=== PATIENT | male | born 1975 | race Two or more races ===

== ENCOUNTER 2024-09-09 05:55 | Emergency (ER) | payer MEDICAID, SELFPAY ==
[2024-09-09] VITALS (8 sets, daily range): BP systolic 123–149; BP diastolic 70–94; PULSE 69–82; RESP 12–20; TEMP 36.3–36.8; O2SAT 93–98
--- NOTE | 2024-09-09 06:15 | XR_ITS ---
Examination: CTA chest with intravenous contrast 2-D reconstructions 3-D reconstructions, vascular Date and time of exam: September 09, 2024 0754 hours INDICATIONS: Onset chest pain shortness of breath today with elevated d-dimer on laboratory examination today CTDI: vol (mGy) 51.4 DLP: (mGycm) 589 Technique: Multiple axial sections of the thorax have been obtained. 3 mm slice thickness, from below the hemidiaphragms to above the apices of the lungs. Mediastinal and lung density settings have been obtained. 2-D sagittal and coronal reconstructions. 3-D angiographic renderings, 3-D volume renderings, 3D post processing, vascular maximum intensity projections obtained. Contrast administered is 100 cc Isovue-370 intravenous. Low dose protocols were performed. One or more of the following dose reduction techniques were used; automated exposure control, adjustment of the mA and/or KV according to patient size, use of iterative reconstruction technique. Findings: No thoracic aortic aneurysm dilatation or dissection Pulmonary artery segments are not enlarged No pulmonary artery emboli Extensive bilateral parenchymal disease including nodular densities in both lungs, without significant change compared with January 08, 2024 Moderate coronary artery calcification Liver is irregular in contour, cirrhosis pattern Cholelithiasis, no gallbladder wall thickening Spleen is not enlarged No pancreatic or adrenal mass No hydronephrosis Prominent osteopenia IMPRESSION: Negative for pulmonary artery emboli Again noted nodular extensive parenchymal disease throughout both lungs, no significant change compared with January 08, 2024 Differential would include chronic parenchymal infiltrates, with intravenous granulomatosis, active pneumonia not excluded Cirrhosis Cholelithiasis, negative for cholecystitis
--- NOTE | 2024-09-09 06:15 | XR_ITS ---
Examination: AP chest single view Technique one AP portable semiupright chest single view Exam date and time: September 09, 2024 0626 hrs. Comparison January 16, 2024 Indications: SOB today Findings: Again noted extensive bilateral parenchymal disease with prominent hilar regions Normal heart size Soft nodular densities are present in both lungs Mild osteopenia Reduced inspiratory effort Impression: Extensive nodular parenchymal disease throughout both lungs, please see the CT chest report January 08, 2024 Differential would include active infectious processes including tuberculosis, pulmonary nodular metastatic disease not excluded Consider repeat CT chest without contrast to compare with the January 08, 2024 exam
--- NOTE | 2024-09-09 06:15 | XR_ITS ---
Examination: Venous duplex lower extremity sonogram, bilateral. Date and time of exam: September 09, 2024 0803 hours INDICATIONS: History CVA, left leg swelling and pain post 2020 CVA, elevated d-dimer today on laboratory examination Technique: Multiple sonographic images of the deep venous system have been obtained. B-mode/2-D grayscale imaging of vascular structures and Doppler spectral analysis (waveforms) and color performed Both legs are examined. Findings: Deep venous systems do not demonstrate abnormal echogenicity. All visualized deep veins exhibit compressibility. All visualized deep veins exhibit augmentation. Impression: Negative for deep vein thrombosis
--- NOTE | 2024-09-09 06:27 | PD.EDEXREM ---
ED Extremity Problem RME/HPI General Chief complaint: Extremity Problem,Nontraumatic Stated complaint: LEDT LEG SWELLING FEVER Time Seen by Provider: 09/09/24 06:12 Arrival date/time: 09/09/24 05:55 RME / HPI RME / HPI Narrative: This section includes all my notes and documentations, including HPI, PE, and ED course.? Juan Miguel Llanos MD HPI: 48-year-old male here with several days of worsening left leg pain and swelling. Concerned due to DVT several months ago. Currently taking Xarelto. No cough or congestion. No chest pain or shortness of breath. No other complaints. ROS: All negative except as documented in HPI. Physical Exam: General:? Alert and oriented.? No acute distress when remaining still.?? Eyes:? Conjunctivae and lids clear.? ENT:? No nasal congestion.? Neck:? Supple.? Heart:? RRR.? Lungs:? No respiratory distress.? Good air movement.? No rhonchi, wheezing, rales.?? Abdomen:? Soft and nontender.?? Legs: Left leg remarkable for severe edema and tenderness. No erythema or calor. Skin:? Warm and dry.?? Neuro:? Alert and oriented X 3.?? I reviewed all diagnostic test results. My interpretation of the EKG is?NSR (66 bpm) with no ST-T changes. My interpretation of the chest x-ray is no acute findings. My review of the CTA chest report is?negative for pulmonary artery emboli. My review of the US venous doppler is negative for deep vein thrombosis. Blood tests and urine tests?remarkable for UTI. At this point, diagnoses include?UTI and leg edema. Treatment here included?IV fluid and Rocephin and fluconazole and morphine. Significant improvement noted. Based on my best medical judgment, made decision no further evaluation or treatment indicated at this time.? Patient understands and agrees to the discharge instructions customized and printed, see below. Discharge Instructions from Dr. Llanos printed for you: 1. After extensive evaluation, there are no blood clots in your legs or in your lungs. 2. Your leg swelling is from cirrhosis, liver damage probably from alcohol history. Liver makes proteins you need to keep blood/fluid in the blood vessels. Since your liver is damaged, the fluid leaks out of the blood vessels go into your legs from the gravity. 3. When resting or sleeping, elevate head of bed and elevate your feet/ankles above your waist level. This will help get the extra fluid back into your blood vessels so you can urinate out the extra fluid. 4. Take Lasix 20 mg daily to help you urinate out the extra fluid. 5. For the UTI by bacteria and yeast, take cefdinir and Diflucan as prescribed. 6. See a private doctor on 09/12/2024 for recheck and further care. Ask to review all test results and official radiology reports, to make sure you receive all necessary follow-ups and monitoring, including your final urine culture results. Ask for a referral to see liver specialist for your cirrhosis. 7. Seek immediate medical care with worsening or with any concerns. Related Data Home Medications ?Medication ?Instructions ?Recorded ?Confirmed atorvastatin 40 mg tablet 40 mg PO HS 01/23/20 02/22/24 gabapentin 300 mg capsule 300 mg PO TID 01/23/20 02/22/24 hydralazine 25 mg tablet 25 mg PO HS 01/23/20 02/22/24 insulin glargine 100 unit/mL (3 9 unit subcut HS 06/07/20 02/22/24 mL) subcutaneous pen (Basaglar KwikPen U-100 Insulin) amlodipine 10 mg tablet 10 mg PO QDAY 04/30/21 02/22/24 carvedilol 12.5 mg tablet 12.5 mg PO BID 04/30/21 02/22/24 acetaminophen 325 mg tablet 650 mg PO Q6HR PRN pain 01/09/24 02/22/24 (Tylenol) bisacodyl 10 mg rectal suppository 10 mg TN PRN PRN Constipation 01/09/24 02/22/24 (Dulcolax (bisacodyl)) docusate sodium 250 mg capsule 250 mg PO BID 01/09/24 02/22/24 ferrous sulfate 325 mg (65 mg 325 mg PO QDAY 01/09/24 02/22/24 iron) tablet fluticasone propionate 50 1 spray intranasal Q24H PRN 01/09/24 02/22/24 mcg/actuation nasal Allergic Symptoms spray,suspension glucagon 1 mg injection kit 1 mg Q15MIN PRN Hypoglycemia 01/09/24 02/22/24 insulin lispro 100 unit/mL 16 unit subcut QPM 01/09/24 02/22/24 subcutaneous solution lactulose 10 gram/15 mL oral 30 ml PO Q8HR PRN Constipation 01/09/24 02/22/24 solution magnesium hydroxide 400 mg/5 mL 30 ml PO Q72H PRN constipation 01/09/24 02/22/24 oral suspension (Milk of Magnesia) sodium phosphates 19 gram-7 118 ml TN Q72H PRN Constipation 01/09/24 02/22/24 gram/118 mL enema (Fleet Enema) triamcinolone acetonide 0.1 % 1 applic topical Q12HR PRN Eczema 01/09/24 02/22/24 topical cream guaifenesin 100 mg/5 mL oral liquid 200 mg PO Q6HR PRN Cough 02/22/24 ipratropium bromide 0.02 % 2.5 ml inhalation Q4HR PRN 02/22/24 02/22/24 solution for inhalation Shortness Of Breath ondansetron HCl 4 mg tablet 4 mg PO [id number] PRN Nausea And 02/22/24 02/22/24 Vomiting rivaroxaban 15 mg tablet (Xarelto) 15 mg PO BID 02/22/24 02/22/24 rivaroxaban 20 mg tablet (Xarelto) 20 mg PO QDAY 02/22/24 02/22/24 sennosides 8.6 mg tablet (senna) 8.6 mg PO QDAY 02/22/24 02/22/24 tramadol 100 mg tablet 100 mg PO Q8HR PRN Pain 02/22/24 02/22/24 Previous Rx's ?Medication ?Instructions ?Recorded albuterol sulfate 90 mcg/actuation 1 puff inhalation Q4HR PRN 11/05/20 aerosol inhaler Shortness Of Breath Or Wheezing #0 grams tamsulosin 0.4 mg capsule 0.4 mg PO QDAY #30 caps 11/30/20 calcium acetate(phosphat bind) 667 667 mg PO TIDWM #0 caps 05/10/21 mg capsule cefdinir 300 mg capsule 300 mg PO BID #14 caps 09/09/24 fluconazole 200 mg tablet 200 mg PO QDAY 7 days #7 tabs 09/09/24 (Diflucan) furosemide 20 mg tablet (Lasix) 20 mg PO QDAY #30 tabs 09/09/24 Allergies Allergy/AdvReac Type Severity Reaction Status Date / Time No Known Allergies Allergy Verified 02/22/24 05:30 Review of Systems Review of Systems Systems Reviewed: All systems reviewed, normal except as documented Past Medical History Past Medical History NEUROLOGIC: Positive Neurological Disorders, Cerebrovascular Accident, Paralysis (left side) and Head Trauma; Negative Seizures CARDIAC: Positive Deep Vein Thrombosis (left leg) and Hypertension; Negative Cardiac Disorders, Congestive Heart Failure, Congenital Heart Disease or Hypotension RESPIRATORY: Positive Chronic Obstructive Pulmonary Disease (COPD) and Asthma; Negative Cystic Fibrosis GASTROINTESTINAL: Positive Hepatitis (C), Hemorrhoids and Obesity; Negative Gastrointestinal Disorders, Cirrhosis or Pancreatic Cancer GENITOURINARY: Positive Benign Prostatic Hyperplasia; Negative Genitourinary Disorders, Renal Disease or Prostate Cancer REPRODUCTIVE: Negative Testicular Cancer MUSCULOSKELETAL: Positive Musculoskeletal Disorders; Negative Myasthenia Gravis or Bone Cancer ENT: Positive Head Trauma ENDOCRINE: Positive Diabetes Mellitus Type 2; Negative Diabetes Mellitus Type 1 or Syndrome of Inappropriate Antidiuretic Hormone (SIADH) HEMATOLOGIC: Negative Blood Disorders or Sickle Cell Disease PSYCHO/SOCIAL: Positive Anxiety; Negative Psychiatric Problems OTHER HISTORY: Positive Hospitalization and Blood Transfusions; Negative Autoimmune Disease, Down Syndrome, Blood Transfusion Reaction, Anesthesia Reactions, Organ Transplant, Chemotherapy, Radiation Therapy, Hyperbaric Therapy, MRSA, VRSA, Vancomycin-Resistant Enterococci, Human Immunodeficiency Virus (HIV), Chicken Pox, Measles, Mumps, Pertussis, Clostridium Difficile, Cancer, Prostate Cancer or Testicular Cancer Family History FAMILY HISTORY: Positive Family Cardiac Disorders; Negative Family Neurologic Problems, Family Cancer, Family Surgery or Family Anesthesia Reaction Surgical History SURGICAL: Positive Neurologic Surgery; Negative Cardiac Surgery, Endocrine Surgery, Thyroidectomy, Ear Surgery, Abdominal Surgery, Nephrectomy, Joint Replacement, Vasectomy or Organ Transplant Social History SMOKING STATUS: Never smoker SECOND HAND EXPOSURE: No SUBSTANCE USE: does not use ED Exam Narrative Physical exam: As noted in HPI Course Quality Measures none Orders Category Date Time Status Bedside COVID-19 Antigen Test NOW Care 09/09/24 06:14 Active Bedside Influenza A&B Antigen Test NOW Care 09/09/24 06:[address] Screening NOW Care 09/09/24 06:15 Active EKG (ED ONLY) *Do not use* NOW Care 09/09/24 06:15 Completed Saline [Insert IV] NOW Care 09/09/24 06:14 Active Straight [In and Out Catheter] X1 Care 09/09/24 06:[address] angio chest Stat Exams 09/09/24 06:15 Completed EKG (ED Only) Stat Exams 09/09/24 06:15 Ordered US venous doppler LE BI Stat Exams 09/09/24 06:15 Completed XR chest 1V portable Stat Exams 09/09/24 06:15 Completed BNP [B-Type Natriuretic Peptide] Stat Lab 09/09/24 06:25 Completed CBC Stat Lab 09/09/24 06:25 Completed CMP [Comprehensive Metabolic Panel] Stat Lab 09/09/24 06:25 Completed D-Dimer Stat Lab 09/09/24 06:25 Completed Magnesium Stat Lab 09/09/24 06:25 Completed TSH [Thyroid Stimulating Hormone] Stat Lab 09/09/24 06:25 Completed Troponin I Stat Lab 09/09/24 06:25 Completed UA, C/S IF [Urinalysis, C/S if Indicated] Stat Lab 09/09/24 13:45 Completed Urine Culture Stat Lab 09/09/24 13:45 Received Fluconazole [Diflucan] Med 09/09/24 14:15 Discontinued 200 mg PO X1 ONE HYDROmorphone INJ [Dilaudid Inj] Med 09/09/24 06:14 Discontinued 1 mg IVP X1 ONE Sodium Chloride 0.9% 1000 ml [Ns] 1,000 ml Med 09/09/24 07:40 Discontinued IV 999 mls/hr cefTRIAXone [Rocephin] 1,000 mg Med 09/09/24 14:15 Discontinued Sodium Chloride 0.9% (P) [Ns 0.9% (P)] 50 ml IV X1 Vital Signs Vital signs: Vital Signs Temperature 98.3 F 09/09/24 06:03 Pulse Rate 70 09/09/24 06:03 Respiratory Rate 18 09/09/24 06:03 Blood Pressure 140/70 H 09/09/24 06:03 Pulse Oximetry (%) 95 09/09/24 06:03 Oxygen Delivery Method Room Air 09/09/24 06:03 Pulse ox is 95% on room air which is adequate. Extremity Problem Patient data External records reviewed:: [facility] [place] previous records, EMS form and [facility] records Clinical information provided by:: patient, EMS and spouse Social determinants that could affect healthcare access:: housing ([facility] resident ) Patient has the following chronic illnesses:: CVA with left-sided weakness, CKD, diabetes, hypertension How is presenting disease/condition affected by chronic disease/condition?: exacerbated by Evaluation data The following diagnostics were reviewed and interpreted by me:: lab results, radiology exam(s) and EKG tracing(s) (My interpretation of the EKG: NSR (66 bpm) with no ST-T changes. Juan Miguel Llanos MD) Lab and/or radiology exams considered but not ordered:: None Interpretation Summary: UTI and dependent leg edema Medications / Prescriptions Medications or Prescriptions considered but not ordered:: None Medication administrations:: Medication Administration History Discontinued Medications Fluconazole (Fluconazole 100 Mg Tablet) 200 mg PO X1 ONE Stop: 09/09/24 14:16 Last Admin: 09/09/24 16:46 Dose: 200 mg Documented By: AMANDO Comments: DELIVERED BY PHARMACY AT THIS TIME. Hydromorphone HCl (Hydromorphone Inj 2 Mg/Ml Vial) 1 mg IVP X1 ONE Stop: 09/09/24 06:15 Last Admin: 09/09/24 06:41 Dose: 1 mg Documented By: ISMAEL Sodium Chloride (Ns) 1,000 mls @ 999 mls/hr IV .Q1H1M ONE Stop: 09/09/24 08:40 Last Infusion: 09/09/24 13:08 Dose: Infused Documented By: Admin: 09/09/24 09:23 Dose: 999 mls/hr Documented By: MARYLIN Ceftriaxone Sodium 1,000 mg/ (Sodium Chloride) 50 mls @ 100 mls/hr IV X1 ONE Stop: 09/09/24 14:44 Last Infusion: 09/09/24 16:47 Dose: Infused Documented By: Admin: 09/09/24 16:02 Dose: 100 mls/hr Documented By: MARYLIN Patient given Flucanazole, dilaudid, IV fluids, ceftriaxone Consultations Consultation(s) initiated? (list below): No Diagnosis Extremity Problem Differential Diagnosis: cellulitis, superficial thrombophlebitis, deep venous thrombosis of upper extremity, lower extremity edema and deep vein thrombosis of lower extremity Most likely diagnosis given after review of the tests above:: UTI Leg edema Admission Indicated Admission indicated?: not indicated Explain why admission is indicated or not indicated:: Does not meet admission criteria Admission Request Was there a request for admission?: No Disposition Plan Disposition Plan: Discharge Discharge Attestation Discharge Attestation: The patient and all family members were given an opportunity to ask questions and understood the discharge instructions. Discharge instructions specifically effects, indications for sooner follow up or return to the emergency department, and the expected course of current diagnosis. Patient condition: Stable Discharge Plan Plan Patient Disposition: Xfer Skilled Nsg Fac (SNF) Prescriptions/Referrals Prescriptions/Med Rec: New fluconazole [Diflucan] 200 mg tablet 200 mg PO QDAY 7 Days Qty: 7 0RF cefdinir 300 mg capsule 300 mg PO BID Qty: 14 0RF furosemide [Lasix] 20 mg tablet 20 mg PO QDAY Qty: 30 0RF No Action insulin glargine [Basaglar KwikPen U-100 Insulin] 100 unit/mL (3 mL) insulin pen 9 unit SUBCUT HS carvedilol 12.5 mg tablet 12.5 mg PO BID Rx Instructions: hold of SBP < 110 or pulse < 60 amlodipine 10 mg Tablet 10 mg PO QDAY Rx Instructions: hold if SBP < 110 or pulse < 60 calcium acetate(phosphat bind) 667 mg capsule 667 mg PO TIDWM Qty: 0 0RF Rx Instructions: 1 capsule by mouth with meals for CKD stage 3 atorvastatin 40 mg Tablet 40 mg PO HS hydralazine 25 mg Tablet 25 mg PO HS Rx Instructions: for HTN Hold if SBP <110 or Pulse <60 gabapentin 300 mg Capsule 300 mg PO TID Rx Instructions: 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 albuterol sulfate 90 mcg/actuation HFA aerosol inhaler 1 puff INHALATION Q4HR PRN (Reason: Shortness Of Breath Or Wheezing) Qty: 0 0RF tamsulosin 0.4 mg Capsule 0.4 mg PO QDAY Qty: 30 0RF Rx Instructions: for bladder spasms ferrous sulfate 325 mg (65 mg iron) Tablet 325 mg PO QDAY Rx Instructions: for supplement acetaminophen [Tylenol] 325 mg Tablet 650 mg PO Q6HR PRN (Reason: pain) Rx Instructions: PRN pain (1-10) triamcinolone acetonide 0.1 % Cream 1 applic TOPICAL Q12HR PRN (Reason: Eczema) Rx Instructions: Apply to Head-top of topically magnesium hydroxide [Milk of Magnesia] 400 mg/5 mL Suspension 30 ml PO Q72H PRN (Reason: constipation) Rx Instructions: No bm for 3 days bisacodyl [Dulcolax (bisacodyl)] 10 mg Suppository 10 mg TN PRN PRN (Reason: Constipation) Rx Instructions: To be administered the following shift if mom is ineffective. insulin lispro 100 unit/mL Solution 16 unit subcut QPM Rx Instructions: AC Dinner docusate sodium 250 mg Capsule 250 mg PO BID lactulose 10 gram/15 mL Solution 30 ml PO Q8HR PRN (Reason: Constipation) fluticasone propionate 50 mcg/actuation Amelia,Suspension 1 spray INTRANASAL Q24H PRN (Reason: Allergic Symptoms) Rx Instructions: administer in both nostril Fleet Enema 19-7 gram/118 mL Enema 118 ml TN Q72H PRN (Reason: Constipation) Rx Instructions: To be administered the following shift if Dulcolax suppository is ineffective, notify md if no result glucagon 1 mg Kit 1 mg Q15MIN PRN (Reason: Hypoglycemia) Rx Instructions: Intramuscularly for Blood ugar <60 ipratropium bromide 0.02 % Solution 2.5 ml INHALATION Q4HR PRN (Reason: Shortness Of Breath) tramadol 100 mg Tablet 100 mg PO Q8HR PRN (Reason: Pain) Rx Instructions: PRN pain moderate(4-6); pain severe (6-9) Xarelto 15 mg tablet 15 mg PO BID Rx Instructions: for DVT for 21 days. Start date:02/14/24, End date 03/06/24. Xarelto 20 mg Tablet 20 mg PO QDAY Rx Instructions: for DVT for 70 days. Start date 03/07/24, End date 05/16/24. ondansetron HCl 4 mg tablet 4 mg PO [id number] PRN (Reason: Nausea And Vomiting) sennosides [senna] 8.6 mg Tablet 8.6 mg PO QDAY Rx Instructions: Senna-Tabs 1 tablet for constipation guaifenesin 100 mg/5 mL Liquid 200 mg PO Q6HR PRN (Reason: Cough) Rx Instructions: 10ml Referrals: Aliyah Cortez MD [Primary Care Provider] - In 1 week Problem List Clinical Impression: UTI (urinary tract infection), Leg edema Patient/Caregiver Discharge Instructions Education Materials: ED Lymphedema, ED Bladder Infection, Male (Adult) Additional Instructions: Discharge Instructions from Dr. Llanos printed for you: 1. After extensive evaluation, there are no blood clots in your legs or in your lungs. 2. Your leg swelling is from cirrhosis, liver damage probably from alcohol history. Liver makes proteins you need to keep blood/fluid in the blood vessels. Since your liver is damaged, the fluid leaks out of the blood vessels go into your legs from the gravity. 3. When resting or sleeping, elevate head of bed and elevate your feet/ankles above your waist level. This will help get the extra fluid back into your blood vessels so you can urinate out the extra fluid. 4. Take Lasix 20 mg daily to help you urinate out the extra fluid. 5. For the UTI by bacteria and yeast, take cefdinir and Diflucan as prescribed. 6. See a private doctor on 09/12/2024 for recheck and further care. Ask to review all test results and official radiology reports, to make sure you receive all necessary follow-ups and monitoring, including your final urine culture results. Ask for a referral to see liver specialist for your cirrhosis. 7. Seek immediate medical care with worsening or with any concerns. Print Language: Tajik Stand Alone Forms: Tessa Award Info., Patient Portal Info Letter
[2024-09-09] MEDS: HYDROmorphone INJ 2 MG/ML VIAL 1 MG IVP (06:41)
[2024-09-09 06:53] LABS: Basophils # (Auto) 0.1 Thou/mm3 (0.0-0.2); Basophils % (Auto) 1 % (0-2.5); Eosinophils # (Auto) 0.4 Thou/mm3 (0.0-0.5); Eosinophils % (Auto) 5 % (0-10); Hematocrit 30.5 % (41.0-53.0); Hemoglobin 9.7 g/dL (13.5-16.0); Immature Granulocytes % (Auto) 0 % (0-0); Immature Granulocytes Auto 0.02 Thou/mm3 (0.00-0.00); Lymphocytes # (Auto) 2.2 Thou/mm3 (1.0-4.8); Lymphocytes % (Auto) 27 % (10-50); Mean Corpuscular HGB Conc 31.8 g/dl (31.0-37.0); Mean Corpuscular Hemoglobin 26.2 pg (25.0-35.0); Mean Corpuscular Volume 82 fL (80-100); Monocytes % (Auto) 13 % (0-12); Neutrophils # (Auto) 4.4 Thou/mm3 (1.8-7.7); Neutrophils % (Auto) 54 % (37-80); Nucleated Red Blood Cell % 0 /100 WBC (0); Platelet Count 186 Thou/mm3 (140-440); RDW Standard Deviation 41.4 fL (35.1-43.9); White Blood Count 8.1 Thou/mm3 (3.8-10.6)
[2024-09-09 07:16] LABS: Alanine Aminotransferase 31 U/L (10-49); Albumin, Serum 3.8 gm/dL (3.5-5.0); Albumin/Globulin Ratio 1.2 (1.2-2.2); Alkaline Phosphatase 105 U/L (46-116); Anion Gap 7 (7-16); Aspartate Amino Transferase 21 U/L (0-34); BUN/Creatinine Ratio 25 Ratio (12-20); Bilirubin,Total < 0.2 mg/dL (0.3-1.2); Blood Urea Nitrogen 40 mg/dL (9-23); Calcium 8.4 mg/dL (8.3-10.6); Calcium (Corrected) 8.6 mg/dL (8.5-10.1); Carbon Dioxide 27.3 mMol/L (20.0-31.0); Chloride 107 mMol/L (98-107); Creatinine (Component) 1.6 mg/dL (0.6-1.3); Globulin 3.1 gm/dL (2.3-3.5); Glucose 105 mg/dL (74-106); Osmolality,Calculated 290 (275-295); Potassium 4.7 mMol/L (3.4-5.1); Sodium 141 mMol/L (136-145); Thyroid Stimulating Hormone 4.44 uIU/mL (0.55-4.78); Total Protein 6.9 gm/dL (5.7-8.2); Troponin I < 0.020 ng/mL (0.0-0.045); eGFR 52 See Note
[2024-09-09 07:19] LABS: D-Dimer < 250 ng/mL (<600)
[2024-09-09 07:23] LABS: B-Type Natriuretic Peptide 25 pg/mL (0-100)
[2024-09-09] MEDS: SODIUM CHLORIDE 0.9% 1000 ML 1,000 ML 999 ML IV (09:23)
[2024-09-09 10:37] LABS: Collection Type, Urine Clean Catch
[2024-09-09 14:01] LABS: Bacteria,Urine 1+; Bilirubin,Urine Negative (Negative); Blood,Urine 2+ (Negative); Budding Yeast,Urine Present; Color,Urine Yellow (Lt Yel-Yel); Glucose, Urine Negative (Negative); Hyphae Yeast Present; Ketones,Urine Negative (Negative); Leukocyte Esterase,Urine Positive (Negative); Nitrite,Urine Negative (Negative); Protein,Urine 2+ (Neg - Trace); RBC,Urine 40 /hpf (0-3); Specific Gravity,Urine 1.038 (1.001-1.035); Squamous Epithelial Cell,Urine 1 /hpf (0-5); Urobilinogen,Urine Negative mg/dL (0.0-1.0); WBC,Urine 1066 /hpf (0-5)
[2024-09-09 14:08] LABS: Clarity,Urine Cloudy (Clear/Hazy); Culture Indicated,Urine Yes
[2024-09-09] MEDS: cefTRIAXone 1,000 MG in SODIUM CHLORIDE 0.9% (P) 50 ML 100 MG IV (16:02)
--- NOTE | 2024-09-09 16:31 | PC.CC ---
Sudha DEL ANGEL was consulted regarding transportation back to [facility] for the patient. ASW made contact with [facility] and obtained reservation information sent information to [facility].
[2024-09-09] MEDS: FLUCONAZOLE 100 MG TABLET 200 MG PO (16:46)
== END 2024-09-09 18:30 | disposition skilled nursing facility (03) ==
PROVIDERS: Emergency Provider Emergency Medicine; PCP Hospitalist
DX: N39.0 Urinary tract infection, site not specified (principal); R60.0 Localized edema; R06.02 Shortness of breath; K74.60 Unspecified cirrhosis of liver; E11.22 Type 2 diabetes mellitus with diabetic chronic kidney disease; I12.9 Hypertensive chronic kidney disease with stage 1 through stage 4 chronic kidney disease, or unspecified chronic kidney disease; N18.30 Chronic kidney disease, stage 3 unspecified; Z86.718 Personal history of other venous thrombosis and embolism; Z79.01 Long term (current) use of anticoagulants
CPT/HCPCS: 36415; 71045; 71275; 80053; 81001; 83735; 83880; 84443; 84484; 85025; 85379; 87077; 87086; 87186; 87400; 87811; 93005; 93970; 96361; 96365; 96375; 99285; A4649; J0696; J3490; J7030; J7050; Q9967; A9270

== ENCOUNTER 2024-10-27 21:43 | Emergency (ER) | payer MEDICAID, SELFPAY ==
[2024-10-27 21:50] VITALS: PULSE 80; RESP 20; O2SAT 98; BMI 30.1
[2024-10-27 21:56] VITALS: BP 131/74; PULSE 77; RESP 19; TEMP 36.7; O2SAT 96
--- NOTE | 2024-10-28 00:43 | EDRME_ITS ---
Rapid Medical Screening Exam RME Arrival date/time: 10/27/24 21:43 Chief Complaint: Shortness of Breath/Dyspnea Time Seen by Provider: 10/28/24 00:42 Vital signs: Vital Signs Temperature 98.1 F 10/27/24 21:56 Pulse Rate 77 10/27/24 21:56 Respiratory Rate 19 10/27/24 21:56 Blood Pressure 131/74 H 10/27/24 21:56 Pulse Oximetry (%) 96 10/27/24 21:56 Oxygen Delivery Method Nasal Cannula 10/27/24 21:56 Oxygen Flow Rate 4 10/27/24 21:56 Vital signs reviewed by provider: Yes RME Narrative: 49-year-old male, hypertension, high cholesterol, history of stroke with left- sided deficits as a visual coming, facility with left ear pain, shortness of breath x 3 days.
--- NOTE | 2024-10-28 00:44 | XR_ITS ---
Examination: AP chest single view Technique: AP portable semiupright chest single view Exam date and time: October 20, 2024 0051 hrs. Comparison September 09, 2024 Indications: Shortness of breath beginning 3 days ago. Findings: Bilateral lung opacity consistent with pneumonia Mild prominence left ventricle Poor inspiratory effort Prominent osteopenia Impression: Bilateral pneumonia
[2024-10-28 01:12] VITALS: BP 138/68; PULSE 84; RESP 18; TEMP 36.8; O2SAT 94
[2024-10-28 01:32] LABS: Basophils # (Auto) 0.1 Thou/mm3 (0.0-0.2); Basophils % (Auto) 1 % (0-2.5); Eosinophils # (Auto) 0.3 Thou/mm3 (0.0-0.5); Eosinophils % (Auto) 5 % (0-10); Hematocrit 25.6 % (41.0-53.0); Immature Granulocytes % (Auto) 0 % (0-0); Immature Granulocytes Auto 0.01 Thou/mm3 (0.00-0.00); Lymphocytes # (Auto) 1.6 Thou/mm3 (1.0-4.8); Lymphocytes % (Auto) 23 % (10-50); Mean Corpuscular HGB Conc 30.9 g/dl (31.0-37.0); Mean Corpuscular Hemoglobin 26.2 pg (25.0-35.0); Mean Corpuscular Volume 85 fL (80-100); Monocytes # (Auto) 0.7 Thou/mm3 (0.0-0.8); Monocytes % (Auto) 10 % (0-12); Neutrophils # (Auto) 4.4 Thou/mm3 (1.8-7.7); Neutrophils % (Auto) 61 % (37-80); Nucleated Red Blood Cell % 0 /100 WBC (0); Platelet Count 144 Thou/mm3 (140-440); Red Blood Count 3.02 Miln/mm3 (4.50-5.90); White Blood Count 7.1 Thou/mm3 (3.8-10.6)
[2024-10-28 01:36] LABS: Hemoglobin 7.9 g/dL (13.5-16.0)
[2024-10-28 01:46] LABS: B-Type Natriuretic Peptide 86 pg/mL (0-100)
[2024-10-28 01:52] LABS: Alanine Aminotransferase 12 U/L (10-49); Albumin, Serum 3.3 gm/dL (3.5-5.0); Albumin/Globulin Ratio 1.1 (1.2-2.2); Alkaline Phosphatase 78 U/L (46-116); Anion Gap 4 (7-16); Aspartate Amino Transferase 13 U/L (0-34); BUN/Creatinine Ratio 20 Ratio (12-20); Bilirubin,Total < 0.2 mg/dL (0.3-1.2); Blood Urea Nitrogen 30 mg/dL (9-23); Calcium 8.4 mg/dL (8.3-10.6); Carbon Dioxide 30.6 mMol/L (20.0-31.0); Chloride 108 mMol/L (98-107); Creatinine (Component) 1.5 mg/dL (0.6-1.3); Estimated Creatinine Clearance 68.3 mL/min (>60); Glucose 129 mg/dL (74-106); Osmolality,Calculated 293 (275-295); Sodium 143 mMol/L (136-145); Total Protein 6.3 gm/dL (5.7-8.2); eGFR 56 See Note
--- NOTE | 2024-10-28 03:30 | PD.EDSOB ---
ED SOB =RME/HPI General Chief Complaint: Shortness of Breath/Dyspnea Stated Complaint: SOB Time Seen by Provider: 10/28/24 00:42 Arrival date/time: 10/27/24 21:43 Limitations: no limitations RME / HPI RME / HPI Narrative: 49-year-old male, hypertension, high cholesterol, history of stroke with left-sided deficits as a visual coming, facility with left ear pain, shortness of breath x 3 days. --------- [facility] ED Evaluation: 49yo male with a history of CVA with residual left-sided deficits, HTN, DM, CKD BIBA from [facility] presents to the ED for a chief complaint of left ear pain x 3 days. Evidently, patient was sent out due to having shortness of breath, but here, patient states his left ear pain has been progressively getting worse. He states he was started on antibiotics 2 days ago. He denies any fever, chills or any other associated symptoms. No known allergies. Related Data Home Medications ?Medication ?Instructions ?Recorded ?Confirmed atorvastatin 40 mg tablet 40 mg PO HS 01/23/20 02/22/24 gabapentin 300 mg capsule 300 mg PO TID 01/23/20 02/22/24 hydralazine 25 mg tablet 25 mg PO HS 01/23/20 02/22/24 insulin glargine 100 unit/mL (3 9 unit subcut HS 06/07/20 02/22/24 mL) subcutaneous pen (Basaglar KwikPen U-100 Insulin) amlodipine 10 mg tablet 10 mg PO QDAY 04/30/21 02/22/24 carvedilol 12.5 mg tablet 12.5 mg PO BID 04/30/21 02/22/24 acetaminophen 325 mg tablet 650 mg PO Q6HR PRN pain 01/09/24 02/22/24 (Tylenol) bisacodyl 10 mg rectal suppository 10 mg CA PRN PRN Constipation 01/09/24 02/22/24 (Dulcolax (bisacodyl)) docusate sodium 250 mg capsule 250 mg PO BID 01/09/24 02/22/24 ferrous sulfate 325 mg (65 mg 325 mg PO QDAY 01/09/24 02/22/24 iron) tablet fluticasone propionate 50 1 spray intranasal Q24H PRN 01/09/24 02/22/24 mcg/actuation nasal Allergic Symptoms spray,suspension glucagon 1 mg injection kit 1 mg Q15MIN PRN Hypoglycemia 01/09/24 02/22/24 insulin lispro 100 unit/mL 16 unit subcut QPM 01/09/24 02/22/24 subcutaneous solution lactulose 10 gram/15 mL oral 30 ml PO Q8HR PRN Constipation 01/09/24 02/22/24 solution magnesium hydroxide 400 mg/5 mL 30 ml PO Q72H PRN constipation 01/09/24 02/22/24 oral suspension (Milk of Magnesia) sodium phosphates 19 gram-7 118 ml CA Q72H PRN Constipation 01/09/24 02/22/24 gram/118 mL enema (Fleet Enema) triamcinolone acetonide 0.1 % 1 applic topical Q12HR PRN Eczema 01/09/24 02/22/24 topical cream guaifenesin 100 mg/5 mL oral liquid 200 mg PO Q6HR PRN Cough 02/22/24 ipratropium bromide 0.02 % 2.5 ml inhalation Q4HR PRN 02/22/24 02/22/24 solution for inhalation Shortness Of Breath ondansetron HCl 4 mg tablet 4 mg PO [id number] PRN Nausea And 02/22/24 02/22/24 Vomiting rivaroxaban 15 mg tablet (Xarelto) 15 mg PO BID 02/22/24 02/22/24 rivaroxaban 20 mg tablet (Xarelto) 20 mg PO QDAY 02/22/24 02/22/24 sennosides 8.6 mg tablet (senna) 8.6 mg PO QDAY 02/22/24 02/22/24 tramadol 100 mg tablet 100 mg PO Q8HR PRN Pain 02/22/24 02/22/24 Previous Rx's ?Medication ?Instructions ?Recorded albuterol sulfate 90 mcg/actuation 1 puff inhalation Q4HR PRN 11/05/20 aerosol inhaler Shortness Of Breath Or Wheezing #0 grams tamsulosin 0.4 mg capsule 0.4 mg PO QDAY #30 caps 11/30/20 calcium acetate(phosphat bind) 667 667 mg PO TIDWM #0 caps 05/10/21 mg capsule cefdinir 300 mg capsule 300 mg PO BID #14 caps 09/09/24 furosemide 20 mg tablet (Lasix) 20 mg PO QDAY #30 tabs 09/09/24 ofloxacin 0.3 % ear drops 10 drp otic (ear) QDAY 10 days #10 10/28/24 mL Allergies Allergy/AdvReac Type Severity Reaction Status Date / Time No Known Allergies Allergy Verified 02/22/24 05:30 Review of Systems Review of Systems Systems Reviewed: All systems reviewed, normal except as documented Past Medical History Past Medical History NEUROLOGIC: Positive Neurological Disorders, Cerebrovascular Accident, Paralysis and Head Trauma; Negative Seizures CARDIAC: Positive Deep Vein Thrombosis and Hypertension; Negative Cardiac Disorders, Congestive Heart Failure, Congenital Heart Disease or Hypotension RESPIRATORY: Positive Chronic Obstructive Pulmonary Disease (COPD) and Asthma; Negative Cystic Fibrosis GASTROINTESTINAL: Positive Hepatitis, Hemorrhoids and Obesity; Negative Gastrointestinal Disorders, Cirrhosis or Pancreatic Cancer GENITOURINARY: Positive Benign Prostatic Hyperplasia; Negative Genitourinary Disorders, Renal Disease or Prostate Cancer REPRODUCTIVE: Negative Testicular Cancer MUSCULOSKELETAL: Positive Musculoskeletal Disorders; Negative Myasthenia Gravis or Bone Cancer ENT: Positive Head Trauma ENDOCRINE: Positive Diabetes Mellitus Type 2; Negative Diabetes Mellitus Type 1 or Syndrome of Inappropriate Antidiuretic Hormone (SIADH) HEMATOLOGIC: Negative Blood Disorders or Sickle Cell Disease PSYCHO/SOCIAL: Positive Anxiety; Negative Psychiatric Problems OTHER HISTORY: Positive Hospitalization and Blood Transfusions; Negative Autoimmune Disease, Down Syndrome, Blood Transfusion Reaction, Anesthesia Reactions, Organ Transplant, Chemotherapy, Radiation Therapy, Hyperbaric Therapy, MRSA, VRSA, Vancomycin-Resistant Enterococci, Human Immunodeficiency Virus (HIV), Chicken Pox, Measles, Mumps, Pertussis, Clostridium Difficile, Cancer, Prostate Cancer or Testicular Cancer Family History FAMILY HISTORY: Positive Family Cardiac Disorders; Negative Family Neurologic Problems, Family Cancer, Family Surgery or Family Anesthesia Reaction Surgical History SURGICAL: Positive Neurologic Surgery; Negative Cardiac Surgery, Endocrine Surgery, Thyroidectomy, Ear Surgery, Abdominal Surgery, Nephrectomy, Joint Replacement, Vasectomy or Organ Transplant Social History SMOKING STATUS: Unknown if ever smoked SECOND HAND EXPOSURE: No SUBSTANCE USE: does not use ED Exam General Limitations: Present no limitations General appearance: Present alert, in no apparent distress and other (no facial droop) Head Head exam: Present atraumatic Eye Eye exam: Present normal appearance, PERRL and EOMI ENT ENT exam: Present normal oropharynx, mucous membranes moist and other (Inflamed external left TM with dry yellow discharge, right TM is normal, no mastoid tenderness) Neck Neck exam: Present normal inspection, full ROM and trachea midline Chest Chest inspection: Present normal inspection and symmetric chest wall rise Respiratory Respiratory exam: Present normal lung sounds bilaterally Cardiovascular Cardiovascular exam: Present regular rate, normal rhythm and normal heart sounds Abdominal Exam Abdominal exam: Present soft and normal bowel sounds Extremities Exam Extremities exam: Present other (hemiparesis to the LUE and LLE); Absent pedal edema Back Exam Back exam: Present normal inspection and full ROM Neurological Exam Neurological exam: Present alert, oriented X3 and CN II-XII intact Psychiatric Psychiatric exam: Present normal affect and normal mood Skin Skin exam: Present warm, dry, intact and normal color; Absent diaphoresis Course Course Course Narrative: CXR is ordered for determining the etiology of shortness of breath. Quality Measures none Orders Category Date Time Status CXRP [XR chest 1V portable] Stat Exams 10/28/24 00:44 Taken BNP [B-Type Natriuretic Peptide] Stat Lab 10/28/24 01:21 Completed CBC Stat Lab 10/28/24 01:21 Completed CMP [Comprehensive Metabolic Panel] Stat Lab 10/28/24 01:21 Completed Vital Signs Vital signs: Vital Signs Temperature 98.1 F 10/27/24 21:56 Pulse Rate 77 10/27/24 21:56 Respiratory Rate 19 10/27/24 21:56 Blood Pressure 131/74 H 10/27/24 21:56 Pulse Oximetry (%) 96 10/27/24 21:56 Oxygen Delivery Method Nasal Cannula 10/27/24 21:56 Oxygen Flow Rate 4 10/27/24 21:56 Shortness of Breath / Dyspnea Patient data External records reviewed:: [facility] previous records (Per chart review, patient was seen here on 09/09/24 for leg edema.) Clinical information provided by:: patient Social determinants that could affect healthcare access:: none Patient has the following chronic illnesses:: CVA with residual left-sided deficits, CKD, DMII, HTN How is presenting disease/condition affected by chronic disease/condition?: uneffected by Evaluation data The following diagnostics were reviewed and interpreted by me:: lab results and radiology exam(s) Lab and/or radiology exams considered but not ordered:: none Interpretation Summary: WBC count is normal, HnH is 7.9/25/6, Creatinine is 1.5, BNP is normal, according to my interpretation. CXR shows poor inspiratory effort, bilateral hilar changes, no obvious infiltrate, no pleural effusions, similar to previous CXR done in 08/2024, according to my interpretation. Medications / Prescriptions Medications or Prescriptions considered but not ordered:: none Medication administrations:: see above, if any Consultations Consultation(s) initiated? (list below): No Diagnosis Shortness of Breath Differential Diagnosis: other (otitis media, otitis externa, otitis interna) Most likely diagnosis given after review of the tests above:: see below Admission Indicated Admission indicated?: not indicated Admission Request Was there a request for admission?: No Disposition Plan Disposition Plan: Discharge Discharge Attestation Discharge Attestation: The patient and all family members were given an opportunity to ask questions and understood the discharge instructions. Discharge instructions specifically effects, indications for sooner follow up or return to the emergency department, and the expected course of current diagnosis. Patient condition: Stable Discharge Plan Plan Patient Disposition: HOME (Self Care) Patient condition on transfer: Stable Prescriptions/Referrals Prescriptions/Med Rec: New ofloxacin 0.3 % drops 10 drp otic (ear) QDAY 10 Days Qty: 10 0RF Rx Instructions: Left ear x 10 days. No Action insulin glargine [Basaglar KwikPen U-100 Insulin] 100 unit/mL (3 mL) insulin pen 9 unit SUBCUT HS carvedilol 12.5 mg tablet 12.5 mg PO BID Rx Instructions: hold of SBP < 110 or pulse < 60 amlodipine 10 mg Tablet 10 mg PO QDAY Rx Instructions: hold if SBP < 110 or pulse < 60 calcium acetate(phosphat bind) 667 mg capsule 667 mg PO TIDWM Qty: 0 0RF Rx Instructions: 1 capsule by mouth with meals for CKD stage 3 atorvastatin 40 mg Tablet 40 mg PO HS hydralazine 25 mg Tablet 25 mg PO HS Rx Instructions: for HTN Hold if SBP <110 or Pulse <60 gabapentin 300 mg Capsule 300 mg PO TID Rx Instructions: 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 albuterol sulfate 90 mcg/actuation HFA aerosol inhaler 1 puff INHALATION Q4HR PRN (Reason: Shortness Of Breath Or Wheezing) Qty: 0 0RF tamsulosin 0.4 mg Capsule 0.4 mg PO QDAY Qty: 30 0RF Rx Instructions: for bladder spasms cefdinir 300 mg capsule 300 mg PO BID Qty: 14 0RF furosemide [Lasix] 20 mg tablet 20 mg PO QDAY Qty: 30 0RF ferrous sulfate 325 mg (65 mg iron) Tablet 325 mg PO QDAY Rx Instructions: for supplement acetaminophen [Tylenol] 325 mg Tablet 650 mg PO Q6HR PRN (Reason: pain) Rx Instructions: PRN pain (1-10) triamcinolone acetonide 0.1 % Cream 1 applic TOPICAL Q12HR PRN (Reason: Eczema) Rx Instructions: Apply to Head-top of topically magnesium hydroxide [Milk of Magnesia] 400 mg/5 mL Suspension 30 ml PO Q72H PRN (Reason: constipation) Rx Instructions: No bm for 3 days bisacodyl [Dulcolax (bisacodyl)] 10 mg Suppository 10 mg CA PRN PRN (Reason: Constipation) Rx Instructions: To be administered the following shift if mom is ineffective. insulin lispro 100 unit/mL Solution 16 unit subcut QPM Rx Instructions: AC Dinner docusate sodium 250 mg Capsule 250 mg PO BID lactulose 10 gram/15 mL Solution 30 ml PO Q8HR PRN (Reason: Constipation) fluticasone propionate 50 mcg/actuation [place],Suspension 1 spray INTRANASAL Q24H PRN (Reason: Allergic Symptoms) Rx Instructions: administer in both nostril Fleet Enema 19-7 gram/118 mL Enema 118 ml CA Q72H PRN (Reason: Constipation) Rx Instructions: To be administered the following shift if Dulcolax suppository is ineffective, notify md if no result glucagon 1 mg Kit 1 mg Q15MIN PRN (Reason: Hypoglycemia) Rx Instructions: Intramuscularly for Blood ugar <60 ipratropium bromide 0.02 % Solution 2.5 ml INHALATION Q4HR PRN (Reason: Shortness Of Breath) tramadol 100 mg Tablet 100 mg PO Q8HR PRN (Reason: Pain) Rx Instructions: PRN pain moderate(4-6); pain severe (6-9) Xarelto 15 mg tablet 15 mg PO BID Rx Instructions: for DVT for 21 days. Start date:02/14/24, End date 03/06/24. Xarelto 20 mg Tablet 20 mg PO QDAY Rx Instructions: for DVT for 70 days. Start date 03/07/24, End date 05/16/24. ondansetron HCl 4 mg tablet 4 mg PO [id number] PRN (Reason: Nausea And Vomiting) sennosides [senna] 8.6 mg Tablet 8.6 mg PO QDAY Rx Instructions: Senna-Tabs 1 tablet for constipation guaifenesin 100 mg/5 mL Liquid 200 mg PO Q6HR PRN (Reason: Cough) Rx Instructions: 10ml Referrals: Aliyah Cortez MD [Primary Care Provider] - In 1 week Problem List Clinical Impression: Acute otitis externa Patient/Caregiver Discharge Instructions Education Materials: ED External Ear Infection (Adult) Additional Instructions: Please continue the antibiotics that you are on. I can give you some eardrops that you can use for the next 1 week if you feel like the oral antibiotics is not helping. Please return to emergency department for any worsening symptoms, fever, or any other concerns. Print Language: Kazakh Stand Alone Forms: Tessa Award Info., Patient Portal Info Letter
[2024-10-28 04:34] VITALS: BP 162/87; PULSE 73; RESP 18; TEMP 36.6; O2SAT 99
--- NOTE | 2024-10-28 05:19 | PC.NURSE ---
report called via telephone to miriam rowe from [facility]
== END 2024-10-28 04:43 | disposition home or self-care (01) ==
PROVIDERS: Emergency Provider Emergency Medicine; PCP Hospitalist
DX: H60.92 Unspecified otitis externa, left ear (principal); I69.354 Hemiplegia and hemiparesis following cerebral infarction affecting left non-dominant side; E11.22 Type 2 diabetes mellitus with diabetic chronic kidney disease; I12.9 Hypertensive chronic kidney disease with stage 1 through stage 4 chronic kidney disease, or unspecified chronic kidney disease; N18.9 Chronic kidney disease, unspecified
CPT/HCPCS: 36415; 71045; 80053; 83880; 85025; 99283

== ENCOUNTER 2024-11-12 23:54 | Emergency (ER) | payer MEDICAID, SELFPAY ==
[2024-11-13 00:01] VITALS: BMI 32.3
[2024-11-13 00:02] VITALS: BP 150/74; PULSE 87; RESP 19; TEMP 36.8; O2SAT 97
--- NOTE | 2024-11-13 00:06 | PD.EDAMS ---
Altered Mental Status RME/HPI General Chief Complaint: General Adult/Misc Complain Stated Complaint: LEFT LEG SWELLING W/ PAIN Time Seen by Provider: 11/13/24 00:02 Source: patient and EMS Arrival date/time: 11/12/24 23:54 Mode of arrival: EMS Limitations: physical limitation RME / HPI RME / HPI narrative: Dr. Bass?s Main ED Evaluation: 48-year-old male with extensive medical history, including left-sided hemiparesis secondary to CVA status post clot evacuation, chronic edema, CKD III, COPD, T2DM, chronic RT foot osteomyelitis, presents with worsening left leg pain and swelling for several days. The patient reports baseline chronic swelling, but notes increased severity compared to usual. Pain onset was today, prompting evaluation. He is currently on Xarelto. No other acute complaints. He resides at [facility] and is bedbound due to left-sided paralysis from prior CVA. Related Data Home Medications ?Medication ?Instructions ?Recorded ?Confirmed atorvastatin 40 mg tablet 40 mg PO HS 01/23/20 02/22/24 gabapentin 300 mg capsule 300 mg PO TID 01/23/20 02/22/24 hydralazine 25 mg tablet 25 mg PO HS 01/23/20 02/22/24 insulin glargine 100 unit/mL (3 9 unit subcut HS 06/07/20 02/22/24 mL) subcutaneous pen (Basaglar KwikPen U-100 Insulin) amlodipine 10 mg tablet 10 mg PO QDAY 04/30/21 02/22/24 carvedilol 12.5 mg tablet 12.5 mg PO BID 04/30/21 02/22/24 acetaminophen 325 mg tablet 650 mg PO Q6HR PRN pain 01/09/24 02/22/24 (Tylenol) bisacodyl 10 mg rectal suppository 10 mg ME PRN PRN Constipation 01/09/24 02/22/24 (Dulcolax (bisacodyl)) docusate sodium 250 mg capsule 250 mg PO BID 01/09/24 02/22/24 ferrous sulfate 325 mg (65 mg 325 mg PO QDAY 01/09/24 02/22/24 iron) tablet fluticasone propionate 50 1 spray intranasal Q24H PRN 01/09/24 02/22/24 mcg/actuation nasal Allergic Symptoms spray,suspension glucagon 1 mg injection kit 1 mg Q15MIN PRN Hypoglycemia 01/09/24 02/22/24 insulin lispro 100 unit/mL 16 unit subcut QPM 01/09/24 02/22/24 subcutaneous solution lactulose 10 gram/15 mL oral 30 ml PO Q8HR PRN Constipation 01/09/24 02/22/24 solution magnesium hydroxide 400 mg/5 mL 30 ml PO Q72H PRN constipation 01/09/24 02/22/24 oral suspension (Milk of Magnesia) sodium phosphates 19 gram-7 118 ml ME Q72H PRN Constipation 01/09/24 02/22/24 gram/118 mL enema (Fleet Enema) triamcinolone acetonide 0.1 % 1 applic topical Q12HR PRN Eczema 01/09/24 02/22/24 topical cream guaifenesin 100 mg/5 mL oral liquid 200 mg PO Q6HR PRN Cough 02/22/24 ipratropium bromide 0.02 % 2.5 ml inhalation Q4HR PRN 02/22/24 02/22/24 solution for inhalation Shortness Of Breath ondansetron HCl 4 mg tablet 4 mg PO [id number] PRN Nausea And 02/22/24 02/22/24 Vomiting rivaroxaban 15 mg tablet (Xarelto) 15 mg PO BID 02/22/24 02/22/24 rivaroxaban 20 mg tablet (Xarelto) 20 mg PO QDAY 02/22/24 02/22/24 sennosides 8.6 mg tablet (senna) 8.6 mg PO QDAY 02/22/24 02/22/24 tramadol 100 mg tablet 100 mg PO Q8HR PRN Pain 02/22/24 02/22/24 Previous Rx's ?Medication ?Instructions ?Recorded albuterol sulfate 90 mcg/actuation 1 puff inhalation Q4HR PRN 11/05/20 aerosol inhaler Shortness Of Breath Or Wheezing #0 grams tamsulosin 0.4 mg capsule 0.4 mg PO QDAY #30 caps 11/30/20 calcium acetate(phosphat bind) 667 667 mg PO TIDWM #0 caps 05/10/21 mg capsule cefdinir 300 mg capsule 300 mg PO BID #14 caps 09/09/24 furosemide 20 mg tablet (Lasix) 20 mg PO QDAY #30 tabs 09/09/24 Allergies Allergy/AdvReac Type Severity Reaction Status Date / Time No Known Allergies Allergy Verified 02/22/24 05:30 Review of Systems Review of Systems Systems Reviewed: All systems reviewed, normal except as documented Past Medical History Past Medical History NEUROLOGIC: Positive Neurological Disorders, Cerebrovascular Accident, Paralysis and Head Trauma; Negative Seizures CARDIAC: Positive Cardiac Disorders, Deep Vein Thrombosis and Hypertension; Negative Congestive Heart Failure, Congenital Heart Disease or Hypotension RESPIRATORY: Positive Chronic Obstructive Pulmonary Disease (COPD) and Asthma; Negative Cystic Fibrosis GASTROINTESTINAL: Positive Hepatitis, Hemorrhoids and Obesity; Negative Gastrointestinal Disorders, Cirrhosis or Pancreatic Cancer GENITOURINARY: Positive Benign Prostatic Hyperplasia; Negative Genitourinary Disorders, Renal Disease or Prostate Cancer REPRODUCTIVE: Negative Testicular Cancer MUSCULOSKELETAL: Positive Musculoskeletal Disorders; Negative Myasthenia Gravis or Bone Cancer ENT: Positive Head Trauma ENDOCRINE: Positive Diabetes Mellitus Type 2; Negative Diabetes Mellitus Type 1 or Syndrome of Inappropriate Antidiuretic Hormone (SIADH) HEMATOLOGIC: Negative Blood Disorders or Sickle Cell Disease PSYCHO/SOCIAL: Positive Anxiety; Negative Psychiatric Problems OTHER HISTORY: Positive Hospitalization and Blood Transfusions; Negative Autoimmune Disease, Down Syndrome, Blood Transfusion Reaction, Anesthesia Reactions, Organ Transplant, Chemotherapy, Radiation Therapy, Hyperbaric Therapy, MRSA, VRSA, Vancomycin-Resistant Enterococci, Human Immunodeficiency Virus (HIV), Chicken Pox, Measles, Mumps, Pertussis, Clostridium Difficile, Cancer, Prostate Cancer or Testicular Cancer Family History FAMILY HISTORY: Positive Family Cardiac Disorders; Negative Family Neurologic Problems, Family Cancer, Family Surgery or Family Anesthesia Reaction Surgical History SURGICAL: Positive Neurologic Surgery; Negative Cardiac Surgery, Endocrine Surgery, Thyroidectomy, Ear Surgery, Abdominal Surgery, Nephrectomy, Joint Replacement, Vasectomy or Organ Transplant Social History SMOKING STATUS: Unknown if ever smoked SECOND HAND EXPOSURE: No SUBSTANCE USE: does not use ED Exam Narrative Physical exam: GENERAL APPEARANCE: alert and oriented x 4, well-developed, well-nourished, no acute distress VITALS: All vitals were reviewed and the pulse ox is 97% on room air, which is normal according to my interpretation. HEENT: Normocephalic, atraumatic; pupils equal, round, reactive to light; EOMI; mucous membranes pink, moist; oropharynx clear NECK: Supple LUNGS: CTABL; no wheezes, no rales, no rhonchi HEART: Regular rate, regular rhythm; normal S1, S2; no murmurs ABDOMEN: non distended; normal BS; soft, no tenderness, no guarding, no rebound; no masses, no organomegaly, no hernia BACK: no CVA tenderness EXTREMITIES: Left foot has intact perfusion with capillary refill <2 seconds. Spastic hemiparesis to LUE, +3 pitting edema. Able to lift RLE actively. NEUROLOGIC: awake; alert and oriented x4; cranial nerves II-XII grossly intact; no focal sensory or motor deficits PSYCHIATRIC: appropriate mood and affect SKIN: warm, dry, normal color; no rashes General Limitations: Present physical limitation Course Quality Measures none Orders Category Date Time Status US venous doppler LE LT Stat Exams 11/13/24 02:39 Taken Acetaminophen Ivpb [Ofirmev Inj] Med 11/13/24 01:59 Discontinued 1,000 mg in 100 ml IV X1 Vital Signs Vital signs: Vital Signs Temperature 98.2 F 11/13/24 00:02 Pulse Rate 87 11/13/24 00:02 Respiratory Rate 19 11/13/24 00:02 Blood Pressure 150/74 H 11/13/24 00:02 Pulse Oximetry (%) 97 11/13/24 00:02 Oxygen Delivery Method Room Air 11/13/24 00:02 Altered Mental Status MDM Narrative MDM Narrative:: Scribe Attestation: Lino Johns am scribing for and in the presence of Dr. Bass. Provider Notation: Although this document has been carefully reviewed, there may still be some phonetic and other typographical errors. These errors are purely grammatical due to imperfections in the software program and should not be construed in any way to compromise the substance of the patient's medical care during this visit. Patient data External records reviewed:: [facility] previous records, EMS form and Long-Term records Clinical information provided by:: patient and EMS Social determinants that could affect healthcare access:: none Patient has the following chronic illnesses:: see PMH How is presenting disease/condition affected by chronic disease/condition?: uneffected by Evaluation data The following diagnostics were reviewed and interpreted by me:: radiology exam(s) Lab and/or radiology exams considered but not ordered:: n/a Interpretation Summary: Venous doppler study negative for DVT Medications / Prescriptions Medications or Prescriptions considered but not ordered:: n/a Medication administrations:: Medication Administration History Discontinued Medications Acetaminophen (Ofirmev Inj) 1,000 mg in 100 mls @ 250 mls/hr IV X1 ONE Stop: 11/13/24 02:22 Last Infusion: 11/13/24 02:35 Dose: Infused Documented By: Admin: 11/13/24 02:10 Dose: 250 mls/hr Documented By: CCT as above, if any Consultations Consultation(s) initiated? (list below): No Diagnosis Differential diagnosis altered mental status: other (DVT, cellulitis, dependent edema) Most likely diagnosis given after review of the tests above:: Edema of left lower extremity Admission Indicated Admission indicated?: not indicated Admission Request Was there a request for admission?: No Disposition Plan Disposition Plan: Discharge Discharge Attestation Discharge Attestation: The patient and all family members were given an opportunity to ask questions and understood the discharge instructions. Discharge instructions specifically effects, indications for sooner follow up or return to the emergency department, and the expected course of current diagnosis. Patient condition: Stable Discharge Plan Plan Patient Disposition: HOME (Self Care) Disposition Comment: Stable for discharge Patient condition on transfer: Stable Prescriptions/Referrals Prescriptions/Med Rec: No Action insulin glargine [Basaglar KwikPen U-100 Insulin] 100 unit/mL (3 mL) insulin pen 9 unit SUBCUT HS carvedilol 12.5 mg tablet 12.5 mg PO BID Rx Instructions: hold of SBP < 110 or pulse < 60 amlodipine 10 mg Tablet 10 mg PO QDAY Rx Instructions: hold if SBP < 110 or pulse < 60 calcium acetate(phosphat bind) 667 mg capsule 667 mg PO TIDWM Qty: 0 0RF Rx Instructions: 1 capsule by mouth with meals for CKD stage 3 atorvastatin 40 mg Tablet 40 mg PO HS hydralazine 25 mg Tablet 25 mg PO HS Rx Instructions: for HTN Hold if SBP <110 or Pulse <60 gabapentin 300 mg Capsule 300 mg PO TID Rx Instructions: 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 albuterol sulfate 90 mcg/actuation HFA aerosol inhaler 1 puff INHALATION Q4HR PRN (Reason: Shortness Of Breath Or Wheezing) Qty: 0 0RF tamsulosin 0.4 mg Capsule 0.4 mg PO QDAY Qty: 30 0RF Rx Instructions: for bladder spasms cefdinir 300 mg capsule 300 mg PO BID Qty: 14 0RF furosemide [Lasix] 20 mg tablet 20 mg PO QDAY Qty: 30 0RF ferrous sulfate 325 mg (65 mg iron) Tablet 325 mg PO QDAY Rx Instructions: for supplement acetaminophen [Tylenol] 325 mg Tablet 650 mg PO Q6HR PRN (Reason: pain) Rx Instructions: PRN pain (1-10) triamcinolone acetonide 0.1 % Cream 1 applic TOPICAL Q12HR PRN (Reason: Eczema) Rx Instructions: Apply to Head-top of topically magnesium hydroxide [Milk of Magnesia] 400 mg/5 mL Suspension 30 ml PO Q72H PRN (Reason: constipation) Rx Instructions: No bm for 3 days bisacodyl [Dulcolax (bisacodyl)] 10 mg Suppository 10 mg ME PRN PRN (Reason: Constipation) Rx Instructions: To be administered the following shift if mom is ineffective. insulin lispro 100 unit/mL Solution 16 unit subcut QPM Rx Instructions: AC Dinner docusate sodium 250 mg Capsule 250 mg PO BID lactulose 10 gram/15 mL Solution 30 ml PO Q8HR PRN (Reason: Constipation) fluticasone propionate 50 mcg/actuation [place],Suspension 1 spray INTRANASAL Q24H PRN (Reason: Allergic Symptoms) Rx Instructions: administer in both nostril Fleet Enema 19-7 gram/118 mL Enema 118 ml ME Q72H PRN (Reason: Constipation) Rx Instructions: To be administered the following shift if Dulcolax suppository is ineffective, notify md if no result glucagon 1 mg Kit 1 mg Q15MIN PRN (Reason: Hypoglycemia) Rx Instructions: Intramuscularly for Blood ugar <60 ipratropium bromide 0.02 % Solution 2.5 ml INHALATION Q4HR PRN (Reason: Shortness Of Breath) tramadol 100 mg Tablet 100 mg PO Q8HR PRN (Reason: Pain) Rx Instructions: PRN pain moderate(4-6); pain severe (6-9) Xarelto 15 mg tablet 15 mg PO BID Rx Instructions: for DVT for 21 days. Start date:02/14/24, End date 03/06/24. Xarelto 20 mg Tablet 20 mg PO QDAY Rx Instructions: for DVT for 70 days. Start date 03/07/24, End date 05/16/24. ondansetron HCl 4 mg tablet 4 mg PO Q4ZEZZI PRN (Reason: Nausea And Vomiting) sennosides [senna] 8.6 mg Tablet 8.6 mg PO QDAY Rx Instructions: Senna-Tabs 1 tablet for constipation guaifenesin 100 mg/5 mL Liquid 200 mg PO Q6HR PRN (Reason: Cough) Rx Instructions: 10ml Referrals: [facility] [Outside] - In 1 week Problem List Clinical Impression: Edema of left lower extremity Patient/Caregiver Discharge Instructions Discharge Activity: activity as tolerated Education Materials: ED Leg Swelling in a Single Leg Additional Instructions: Please return to the emergency department if you have any worsening or any further medical problems. Otherwise you should follow-up with your primary care doctor or in the [facility] clinic within the next several days. Print Language: [place] Leone[place] Stand Alone Forms: Tessa Award Info., Patient Portal Info Letter
[2024-11-13 00:08] VITALS: PULSE 80; RESP 18; O2SAT 95
--- NOTE | 2024-11-13 01:30 | XR_ITS ---
Examination: Duplex scan of the lower extremity, unilateral left complete Date and time of exam: November 13, 2024, 0151 hrs. Indications: Left leg pain and swelling beginning 3 months ago Technique: Duplex scan of the extremity veins using B-mode/grayscale imaging and Doppler spectral analysis and color flow Attention is directed to internal echogenicity, compression and augmentation involving these veins, color flow assessment, spectral analysis Findings: Major deep venous structures in the extremity demonstrate normal course and caliber. There is no evidence of deep vein thrombosis. Normal color flow and spectral analysis Impression: Negative for DVT..
[2024-11-13] MEDS: ACETAMINOPHEN IVPB 1,000 MG/100 ML VIAL 250 MG IV (02:10)
[2024-11-13 02:12] VITALS: BP 155/83; PULSE 79; RESP 18; TEMP 36.6; O2SAT 97
--- NOTE | 2024-11-13 03:15 | PRELIM_ITS ---
Left lower extremity venous Doppler ultrasound. November 13, 2024 0151 hours Clinical history: Swelling and pain. Please rule out DVT Findings: Calderon scale, color flow and spectral Doppler evaluation of the left lower extremity deep veins was performed. The common femoral, superficial femoral and popliteal veins are patent and compressible. Normal respiratory variation is noted. The great saphenous vein is patent and compressible at the level of the saphenofemoral junction. The posterior tibial and peroneal veins are patent and compressible. Impression: No evidence of deep venous thrombosis in the left lower extremity. Report Electronically Signed By: Cornelius Johns 11/13/2024 3:15:20 AM [EST]
--- NOTE | 2024-11-13 03:25 | PC.NURSE ---
Report given to DEVON Perez at [facility].
--- NOTE | 2024-11-13 03:32 | PC.NURSE ---
Contacted [facility] to set up transport back to [facility] and was given an eta of [id number] or [email or web address]
[2024-11-13 03:45] VITALS: BP 156/87; PULSE 71; RESP 18; TEMP 36.4; O2SAT 97
== END 2024-11-13 03:45 | disposition home or self-care (01) ==
PROVIDERS: Emergency Provider Emergency Medicine
DX: R60.0 Localized edema (principal); I69.354 Hemiplegia and hemiparesis following cerebral infarction affecting left non-dominant side; I12.9 Hypertensive chronic kidney disease with stage 1 through stage 4 chronic kidney disease, or unspecified chronic kidney disease; J44.9 Chronic obstructive pulmonary disease, unspecified; N18.30 Chronic kidney disease, stage 3 unspecified; E11.22 Type 2 diabetes mellitus with diabetic chronic kidney disease
CPT/HCPCS: 93971; 99284; J0131

== ENCOUNTER 2024-12-08 21:45 | Emergency (ER) | payer MEDICAID, SELFPAY ==
[2024-12-08 21:50] VITALS: BP 147/74; PULSE 75; RESP 19; TEMP 36.9; O2SAT 97
[2024-12-08 22:16] VITALS: BP 124/60; O2SAT 95
[2024-12-08 22:27] VITALS: PULSE 74; O2SAT 96
[2024-12-08 23:05] VITALS: BP 124/60; PULSE 78; RESP 18; O2SAT 97
[2024-12-08 23:06] VITALS: BMI 30.7
--- NOTE | 2024-12-08 23:29 | XR_ITS ---
Examination: AP chest single view Technique: AP portable semiupright chest single view Exam date and time: December 08, 2024 1136 hrs. Comparison October 28, 2024 Indications: Shortness of breath today Findings: Bilateral parenchymal disease most consistent with pneumonia Normal heart size Central pulmonary arteries are prominent Moderate osteopenia Impression: Extensive bilateral parenchymal disease most consistent with pneumonia
[2024-12-09 00:02] LABS: Basophils # (Auto) 0.1 Thou/mm3 (0.0-0.2); Basophils % (Auto) 1 % (0-2.5); Eosinophils # (Auto) 0.3 Thou/mm3 (0.0-0.5); Eosinophils % (Auto) 5 % (0-10); Hematocrit 28.7 % (41.0-53.0); Immature Granulocytes % (Auto) 1 % (0-0); Immature Granulocytes Auto 0.03 Thou/mm3 (0.00-0.00); Lymphocytes # (Auto) 1.3 Thou/mm3 (1.0-4.8); Lymphocytes % (Auto) 21 % (10-50); Mean Corpuscular Hemoglobin 25.8 pg (25.0-35.0); Mean Corpuscular Volume 86 fL (80-100); Monocytes # (Auto) 0.5 Thou/mm3 (0.0-0.8); Monocytes % (Auto) 8 % (0-12); Neutrophils # (Auto) 4.2 Thou/mm3 (1.8-7.7); Neutrophils % (Auto) 65 % (37-80); Nucleated Red Blood Cell % 0 /100 WBC (0); Platelet Count 181 Thou/mm3 (140-440); Red Blood Count 3.33 Miln/mm3 (4.50-5.90); White Blood Count 6.4 Thou/mm3 (3.8-10.6)
[2024-12-09 00:03] LABS: Hemoglobin 8.6 g/dL (13.5-16.0)
[2024-12-09 00:24] LABS: Alanine Aminotransferase 16 U/L (10-49); Albumin, Serum 3.9 gm/dL (3.5-5.0); Albumin/Globulin Ratio 1.1 (1.2-2.2); Alkaline Phosphatase 75 U/L (46-116); Anion Gap 5 (7-16); Aspartate Amino Transferase 16 U/L (0-34); BUN/Creatinine Ratio 20 Ratio (12-20); Bilirubin,Total < 0.2 mg/dL (0.3-1.2); Blood Urea Nitrogen 32 mg/dL (9-23); Calcium 9.4 mg/dL (8.3-10.6); Calcium (Corrected) 9.5 mg/dL (8.5-10.1); Chloride 109 mMol/L (98-107); Creatinine (Component) 1.6 mg/dL (0.6-1.3); Estimated Creatinine Clearance 56.8 mL/min (>60); Globulin 3.4 gm/dL (2.3-3.5); Glucose 117 mg/dL (74-106); Osmolality,Calculated 291 (275-295); Potassium 5.1 mMol/L (3.4-5.1); Sodium 142 mMol/L (136-145); Total Protein 7.3 gm/dL (5.7-8.2); eGFR 52 See Note
[2024-12-09 00:58] LABS: B-Type Natriuretic Peptide 87 pg/mL (0-100)
[2024-12-09 01:00] VITALS: BP 146/76; PULSE 78; RESP 18; O2SAT 97
[2024-12-09 01:11] VITALS: BP 146/76; PULSE 79; RESP 17; TEMP 36.1; O2SAT 97
--- NOTE | 2024-12-09 01:15 | PD.EDSOB ---
ED SOB =RME/HPI General Chief Complaint: Shortness of Breath/Dyspnea Stated Complaint: DIFFICULTY BREATHING Time Seen by Provider: 12/08/24 22:44 Arrival date/time: 12/08/24 21:45 Limitations: no limitations RME / HPI RME / HPI Narrative: Dr. [facility] Main ED Evaluation: 49-year-old male coming in with shortness of breath after he fell asleep and his oxygen fell off his face. Patient states this has happened before and is caused him to have shortness of breath. Patient states that he has no chest pain at this time. Nursing was able to put the oxygen back on him and in the emergency department the patient is breathing comfortably. Patient has 3 L of oxygen at baseline at home. Related Data Home Medications ?Medication ?Instructions ?Recorded ?Confirmed atorvastatin 40 mg tablet 40 mg PO HS 01/23/20 02/22/24 gabapentin 300 mg capsule 300 mg PO TID 01/23/20 02/22/24 hydralazine 25 mg tablet 25 mg PO HS 01/23/20 02/22/24 insulin glargine 100 unit/mL (3 9 unit subcut HS 06/07/20 02/22/24 mL) subcutaneous pen (Basaglar KwikPen U-100 Insulin) amlodipine 10 mg tablet 10 mg PO QDAY 04/30/21 02/22/24 carvedilol 12.5 mg tablet 12.5 mg PO BID 04/30/21 02/22/24 acetaminophen 325 mg tablet 650 mg PO Q6HR PRN pain 01/09/24 02/22/24 (Tylenol) bisacodyl 10 mg rectal suppository 10 mg ME PRN PRN Constipation 01/09/24 02/22/24 (Dulcolax (bisacodyl)) docusate sodium 250 mg capsule 250 mg PO BID 01/09/24 02/22/24 ferrous sulfate 325 mg (65 mg 325 mg PO QDAY 01/09/24 02/22/24 iron) tablet fluticasone propionate 50 1 spray intranasal Q24H PRN 01/09/24 02/22/24 mcg/actuation nasal Allergic Symptoms spray,suspension glucagon 1 mg injection kit 1 mg Q15MIN PRN Hypoglycemia 01/09/24 02/22/24 insulin lispro 100 unit/mL 16 unit subcut QPM 01/09/24 02/22/24 subcutaneous solution lactulose 10 gram/15 mL oral 30 ml PO Q8HR PRN Constipation 01/09/24 02/22/24 solution magnesium hydroxide 400 mg/5 mL 30 ml PO Q72H PRN constipation 01/09/24 02/22/24 oral suspension (Milk of Magnesia) sodium phosphates 19 gram-7 118 ml ME Q72H PRN Constipation 01/09/24 02/22/24 gram/118 mL enema (Fleet Enema) triamcinolone acetonide 0.1 % 1 applic topical Q12HR PRN Eczema 01/09/24 02/22/24 topical cream guaifenesin 100 mg/5 mL oral liquid 200 mg PO Q6HR PRN Cough 02/22/24 ipratropium bromide 0.02 % 2.5 ml inhalation Q4HR PRN 02/22/24 02/22/24 solution for inhalation Shortness Of Breath ondansetron HCl 4 mg tablet 4 mg PO [id number] PRN Nausea And 02/22/24 02/22/24 Vomiting rivaroxaban 15 mg tablet (Xarelto) 15 mg PO BID 02/22/24 02/22/24 rivaroxaban 20 mg tablet (Xarelto) 20 mg PO QDAY 02/22/24 02/22/24 sennosides 8.6 mg tablet (senna) 8.6 mg PO QDAY 02/22/24 02/22/24 tramadol 100 mg tablet 100 mg PO Q8HR PRN Pain 02/22/24 02/22/24 Previous Rx's ?Medication ?Instructions ?Recorded albuterol sulfate 90 mcg/actuation 1 puff inhalation Q4HR PRN 11/05/20 aerosol inhaler Shortness Of Breath Or Wheezing #0 grams tamsulosin 0.4 mg capsule 0.4 mg PO QDAY #30 caps 11/30/20 calcium acetate(phosphat bind) 667 667 mg PO TIDWM #0 caps 05/10/21 mg capsule cefdinir 300 mg capsule 300 mg PO BID #14 caps 09/09/24 furosemide 20 mg tablet (Lasix) 20 mg PO QDAY #30 tabs 09/09/24 amoxicillin 500 mg-potassium 1 tab PO BID #20 tabs 12/09/24 clavulanate 125 mg tablet Allergies Allergy/AdvReac Type Severity Reaction Status Date / Time No Known Allergies Allergy Verified 02/22/24 05:30 Review of Systems Review of Systems Systems Reviewed: All systems reviewed, normal except as documented Past Medical History Past Medical History NEUROLOGIC: Positive Neurological Disorders, Cerebrovascular Accident, Paralysis and Head Trauma; Negative Seizures CARDIAC: Positive Cardiac Disorders, Deep Vein Thrombosis and Hypertension; Negative Congestive Heart Failure, Congenital Heart Disease or Hypotension RESPIRATORY: Positive Chronic Obstructive Pulmonary Disease (COPD) and Asthma; Negative Cystic Fibrosis GASTROINTESTINAL: Positive Hepatitis, Hemorrhoids and Obesity; Negative Gastrointestinal Disorders, Cirrhosis or Pancreatic Cancer GENITOURINARY: Positive Benign Prostatic Hyperplasia; Negative Genitourinary Disorders, Renal Disease or Prostate Cancer REPRODUCTIVE: Negative Testicular Cancer MUSCULOSKELETAL: Positive Musculoskeletal Disorders; Negative Myasthenia Gravis or Bone Cancer ENT: Positive Head Trauma ENDOCRINE: Positive Diabetes Mellitus Type 2; Negative Diabetes Mellitus Type 1 or Syndrome of Inappropriate Antidiuretic Hormone (SIADH) HEMATOLOGIC: Negative Blood Disorders or Sickle Cell Disease PSYCHO/SOCIAL: Positive Anxiety; Negative Psychiatric Problems OTHER HISTORY: Positive Hospitalization and Blood Transfusions; Negative Autoimmune Disease, Down Syndrome, Blood Transfusion Reaction, Anesthesia Reactions, Organ Transplant, Chemotherapy, Radiation Therapy, Hyperbaric Therapy, MRSA, VRSA, Vancomycin-Resistant Enterococci, Human Immunodeficiency Virus (HIV), Chicken Pox, Measles, Mumps, Pertussis, Clostridium Difficile, Cancer, Prostate Cancer or Testicular Cancer Family History FAMILY HISTORY: Positive Family Cardiac Disorders; Negative Family Neurologic Problems, Family Cancer, Family Surgery or Family Anesthesia Reaction Surgical History SURGICAL: Positive Neurologic Surgery; Negative Cardiac Surgery, Endocrine Surgery, Thyroidectomy, Ear Surgery, Abdominal Surgery, Nephrectomy, Joint Replacement, Vasectomy or Organ Transplant Social History SMOKING STATUS: Former smoker SECOND HAND EXPOSURE: No SUBSTANCE USE: does not use ED Exam General Limitations: Present no limitations General appearance: Present alert and in no apparent distress Head Head exam: Present atraumatic Eye Eye exam: Present normal appearance, PERRL and EOMI ENT ENT exam: Present normal exam, normal oropharynx and mucous membranes moist Neck Neck exam: Present normal inspection, full ROM and trachea midline Chest Chest inspection: Present normal inspection and symmetric chest wall rise Respiratory Respiratory exam: Present normal lung sounds bilaterally Cardiovascular Cardiovascular exam: Present regular rate, normal rhythm and normal heart sounds Abdominal Exam Abdominal exam: Present soft and normal bowel sounds Extremities Exam Extremities exam: Present normal inspection and full ROM Back Exam Back exam: Present normal inspection and full ROM Neurological Exam Neurological exam: Present alert, oriented X3 and CN II-XII intact Psychiatric Psychiatric exam: Present normal affect and normal mood Skin Skin exam: Present warm, dry, intact and normal color Course Course Course Narrative: CXR is ordered for determining the etiology of shortness of breath. Quality Measures none Orders Category Date Time Status CXRP [XR chest 1V portable] Stat Exams 12/08/24 23:29 Completed BNP [B-Type Natriuretic Peptide] Stat Lab 12/08/24 23:55 Completed CBC Stat Lab 12/08/24 23:55 Completed CMP [Comprehensive Metabolic Panel] Stat Lab 12/08/24 23:55 Completed Amoxicillin/Pot Clav 875 [Augmentin 875] Med 12/09/24 01:44 Discontinued 1 tab PO X1 ONE Vital Signs Vital signs: Vital Signs Temperature 98.4 F 12/08/24 21:50 Pulse Rate 75 12/08/24 21:50 Respiratory Rate 19 12/08/24 21:50 Blood Pressure 147/74 H 12/08/24 21:50 Pulse Oximetry (%) 97 12/08/24 21:50 Oxygen Delivery Method Room Air 12/08/24 21:50 Shortness of Breath / Dyspnea MDM Narrative MDM Narrative:: 49-year-old male with a history of above history coming in with mild shortness of breath after his oxygen falling off his face. Patient has a history of chronic renal sufficiency, Patient data External records reviewed:: [facility] previous records (Per chart review, patient was seen here on 11/13/24 for edema of the LLE.) Clinical information provided by:: patient Social determinants that could affect healthcare access:: housing (SNF resident) Patient has the following chronic illnesses:: CVA status post clot evacuation, chronic edema, CKD III, COPD, T2DM, chronic RT foot osteomyelitis, How is presenting disease/condition affected by chronic disease/condition?: uneffected by Evaluation data The following diagnostics were reviewed and interpreted by me:: lab results and radiology exam(s) Lab and/or radiology exams considered but not ordered:: none Interpretation Summary: WBC count is normal, HnH is at the patient's baseline, Creatinine is 1.6 (which is the patient's baseline), BNP is normal, according to my interpretation. ------ [facility] Report Signed Patient: THA MATHEW [facility]. Record#: [id number] Birthdate: 1975 Age/Sex: 49 / M Location: [facility] Attending Dr: Ordering Physician: Mimi Andrew MD Date of Service: 12/08/24 Procedure(s): XR chest 1V portable Accession Number(s): [id number] cc: Sigifredo Portillo MD; Mimi Andrew MD~ Examination: AP chest single view Technique: AP portable semiupright chest single view Exam date and time: December 08, 2024 1136 hrs. Comparison October 28, 2024 Indications: Shortness of breath today Findings: Bilateral parenchymal disease most consistent with pneumonia Normal heart size Central pulmonary arteries are prominent Moderate osteopenia Impression: Extensive bilateral parenchymal disease most consistent with pneumonia Dictated By: Sigiferdo Portillo MD Signed By: <Electronically signed by Sigifredo Portillo MD in OV> 12/08/24 2347 Medications / Prescriptions Medications or Prescriptions considered but not ordered:: none Medication administrations:: Medication Administration History Discontinued Medications Amoxicillin/Clavulanate Potassium (Amoxicillin/Pot Clav 875 Tablet) 1 tab PO X1 ONE Stop: 12/09/24 01:45 Last Admin: 12/09/24 02:27 Dose: 1 tab Documented By: BECKY none Consultations Consultation(s) initiated? (list below): No Diagnosis Shortness of Breath Differential Diagnosis: congestive heart failure, community acquired pneumonia, pulmonary embolism and other (COPD exacerbation) Most likely diagnosis given after review of the tests above:: see clinical impression below Admission Indicated Admission indicated?: not indicated Admission Request Was there a request for admission?: No Disposition Plan Disposition Plan: Discharge Discharge Attestation Discharge Attestation: The patient and all family members were given an opportunity to ask questions and understood the discharge instructions. Discharge instructions specifically effects, indications for sooner follow up or return to the emergency department, and the expected course of current diagnosis. Patient condition: Stable Discharge Plan Plan Patient Disposition: HOME (Self Care) Patient condition on transfer: Stable Prescriptions/Referrals Prescriptions/Med Rec: New amoxicillin-pot clavulanate 500-125 mg tablet 1 tab PO BID Qty: 20 0RF No Action insulin glargine [Basaglar KwikPen U-100 Insulin] 100 unit/mL (3 mL) insulin pen 9 unit SUBCUT HS carvedilol 12.5 mg tablet 12.5 mg PO BID Rx Instructions: hold of SBP < 110 or pulse < 60 amlodipine 10 mg Tablet 10 mg PO QDAY Rx Instructions: hold if SBP < 110 or pulse < 60 calcium acetate(phosphat bind) 667 mg capsule 667 mg PO TIDWM Qty: 0 0RF Rx Instructions: 1 capsule by mouth with meals for CKD stage 3 atorvastatin 40 mg Tablet 40 mg PO HS hydralazine 25 mg Tablet 25 mg PO HS Rx Instructions: for HTN Hold if SBP <110 or Pulse <60 gabapentin 300 mg Capsule 300 mg PO TID Rx Instructions: 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 albuterol sulfate 90 mcg/actuation HFA aerosol inhaler 1 puff INHALATION Q4HR PRN (Reason: Shortness Of Breath Or Wheezing) Qty: 0 0RF tamsulosin 0.4 mg Capsule 0.4 mg PO QDAY Qty: 30 0RF Rx Instructions: for bladder spasms cefdinir 300 mg capsule 300 mg PO BID Qty: 14 0RF furosemide [Lasix] 20 mg tablet 20 mg PO QDAY Qty: 30 0RF ferrous sulfate 325 mg (65 mg iron) Tablet 325 mg PO QDAY Rx Instructions: for supplement acetaminophen [Tylenol] 325 mg Tablet 650 mg PO Q6HR PRN (Reason: pain) Rx Instructions: PRN pain (1-10) triamcinolone acetonide 0.1 % Cream 1 applic TOPICAL Q12HR PRN (Reason: Eczema) Rx Instructions: Apply to Head-top of topically magnesium hydroxide [Milk of Magnesia] 400 mg/5 mL Suspension 30 ml PO Q72H PRN (Reason: constipation) Rx Instructions: No bm for 3 days bisacodyl [Dulcolax (bisacodyl)] 10 mg Suppository 10 mg ME PRN PRN (Reason: Constipation) Rx Instructions: To be administered the following shift if mom is ineffective. insulin lispro 100 unit/mL Solution 16 unit subcut QPM Rx Instructions: AC Dinner docusate sodium 250 mg Capsule 250 mg PO BID lactulose 10 gram/15 mL Solution 30 ml PO Q8HR PRN (Reason: Constipation) fluticasone propionate 50 mcg/actuation [place],Suspension 1 spray INTRANASAL Q24H PRN (Reason: Allergic Symptoms) Rx Instructions: administer in both nostril Fleet Enema 19-7 gram/118 mL Enema 118 ml ME Q72H PRN (Reason: Constipation) Rx Instructions: To be administered the following shift if Dulcolax suppository is ineffective, notify md if no result glucagon 1 mg Kit 1 mg Q15MIN PRN (Reason: Hypoglycemia) Rx Instructions: Intramuscularly for Blood ugar <60 ipratropium bromide 0.02 % Solution 2.5 ml INHALATION Q4HR PRN (Reason: Shortness Of Breath) tramadol 100 mg Tablet 100 mg PO Q8HR PRN (Reason: Pain) Rx Instructions: PRN pain moderate(4-6); pain severe (6-9) Xarelto 15 mg tablet 15 mg PO BID Rx Instructions: for DVT for 21 days. Start date:02/14/24, End date 03/06/24. Xarelto 20 mg Tablet 20 mg PO QDAY Rx Instructions: for DVT for 70 days. Start date 03/07/24, End date 05/16/24. ondansetron HCl 4 mg tablet 4 mg PO [id number] PRN (Reason: Nausea And Vomiting) sennosides [senna] 8.6 mg Tablet 8.6 mg PO QDAY Rx Instructions: Senna-Tabs 1 tablet for constipation guaifenesin 100 mg/5 mL Liquid 200 mg PO Q6HR PRN (Reason: Cough) Rx Instructions: 10ml Problem List Clinical Impression: Pneumonia Patient/Caregiver Discharge Instructions Education Materials: ED Pneumonia (Adult) Additional Instructions: Return to the emergency department for worsening symptoms, or any other concerns Print Language: [place] Citizen Stand Alone Forms: Tessa Award Info., Patient Portal Info Letter
[2024-12-09] MEDS: AMOXICILLIN/POT CLAV 875 TABLET 1 TAB PO (02:27)
--- NOTE | 2024-12-09 02:29 | PC.NURSE ---
Pt given lactulose then vomited coffee ground about 200cc
[2024-12-09 04:56] VITALS: BP 153/87; PULSE 80; RESP 18; TEMP 36.6; O2SAT 98
[2024-12-09 08:42] VITALS: BP 130/78; PULSE 73; RESP 18; TEMP 36.8; O2SAT 99
--- NOTE | 2024-12-09 08:54 | PC.NURSE ---
Report given to Sparkle OSORIO at [facility].
--- NOTE | 2024-12-09 08:55 | PC.NURSE ---
patient picked up for transfer by [place] [facility].
== END 2024-12-09 08:58 | disposition skilled nursing facility (03) ==
LOC: SERX 12-09 04:08
PROVIDERS: Emergency Provider Emergency Medicine; PCP Hospitalist
DX: J18.9 Pneumonia, unspecified organism (principal); J44.0 Chronic obstructive pulmonary disease with (acute) lower respiratory infection; I12.9 Hypertensive chronic kidney disease with stage 1 through stage 4 chronic kidney disease, or unspecified chronic kidney disease; E11.22 Type 2 diabetes mellitus with diabetic chronic kidney disease; N18.30 Chronic kidney disease, stage 3 unspecified; Z86.73 Personal history of transient ischemic attack (TIA), and cerebral infarction without residual deficits; Z86.718 Personal history of other venous thrombosis and embolism; Z87.891 Personal history of nicotine dependence
CPT/HCPCS: 36415; 71045; 80053; 83880; 85025; 99283; A9270

== ENCOUNTER 2025-08-02 23:41 | Emergency (ER) | payer MEDICAID, SELFPAY ==
[2025-08-02 23:48] VITALS: BP 151/88; PULSE 88; RESP 17; TEMP 37.1; O2SAT 95
[2025-08-02 23:51] VITALS: PULSE 80; RESP 20; O2SAT 97
[2025-08-03 00:08] VITALS: BP 176/86; PULSE 86; RESP 20; TEMP 36.6; O2SAT 99
[2025-08-03 00:30] VITALS: BMI 28.1
--- NOTE | 2025-08-03 02:54 | XR_ITS ---
EXAMINATION: AP chest single view TECHNIQUE: AP portable semiupright chest single view Date and time: August 03, 2025, 0300 hours, comparison December 08, 2024 INDICATIONS: Groin pain thigh pain coughing today FINDINGS: Extensive parenchymal disease throughout the lungs with prominent hilar regions, please see the CT chest examination September 09, 2024 Normal heart size Prominent osteopenia IMPRESSION: Again noted extensive parenchymal disease throughout the lungs, please see the CT chest report September 09, 2024 Consider repeat high-resolution CT chest without contrast follow-up
--- NOTE | 2025-08-03 02:56 | EKG_ITS ---
[facility] Test Date: 2025-08-03 Pat Name: THA MATHEW Department: Room: - Gender: Male [employer]: : 1975 Requested By: Mimi Rosenthal Order Number: [id number] Reading MD: Mimi Rosnethal Measurements Intervals [place] Rate: 72 P: 27 [place]: 181 QRS: 37 QRSD: 113 T: 42 QT: 384 QTc: 423 Interpretive Statements SINUS RHYTHM MODERATE INTRAVENTRICULAR CONDUCTION DELAY [110+ ms QRS DURATION] Compared to ECG 01/08/2024 11:11:15 Intraventricular conduction delay now present /store/S0/[id number]/ecg/[id number].pdf
--- NOTE | 2025-08-03 02:56 | XR_ITS ---
Examination: Duplex scan of the lower extremity, unilateral left Date and time of exam: August 03, 2025, 0401 hours INDICATIONS: Onset left-sided leg pain beginning several days ago Technique: Duplex scan of the extremity veins using B-mode/grayscale imaging and Doppler spectral analysis and color flow Attention is directed to internal echogenicity, compression and augmentation involving these veins, color flow assessment, spectral analysis Findings: Major deep venous structures in the extremity demonstrate normal course and caliber. There is no evidence of deep vein thrombosis. Normal color flow and spectral analysis No diagnostic visualization left posterior tibial vein Impression: No DVT demonstrated
--- NOTE | 2025-08-03 02:58 | EDNOTE_ITS ---
ED General RME/HPI General Chief complaint: Extremity Problem,Nontraumatic Stated complaint: LEG PAIN, GROIN PAIN Time Seen by Provider: 08/03/25 03:02 Source: patient, EMS and RN notes reviewed Arrival date/time: 08/02/25 23:41 Mode of arrival: ambulatory Limitations: no limitations RME / HPI complaint: 49 yo Onset (ago): day(s) (2) Location: lower extremity (left) Radiation: non-radiation Severity: moderate Severity scale (1-10): 9 Quality: aching Consistency: constant Relieving factors: none Exacerbating factors: immobilization Associated symptoms: other (hx cva with left sided wekaness. Uses a WC) Treatments prior to arrival: other (On [place]) Related Data Home Medications ?Medication ?Instructions ?Recorded ?Confirmed gabapentin 300 mg capsule 300 mg PO TID 01/23/2008/23 insulin glargine 100 unit/mL (3 5 unit subcut HS 06/0708/23/25 mL) subcutaneous pen (Basaglar KwikPen U-100 Insulin) amlodipine 10 mg tablet 10 mg PO QDAY 04/30/2108/23 carvedilol 12.5 mg tablet 12.5 mg PO BID 04/30/2108/01 docusate sodium 250 mg capsule 250 mg PO BID 01/09/24 08/23/25 lactulose 10 gram/15 mL oral 15 ml PO BID PRN Constipa tion 01/09/24 08/23/25 solution sodium phosphates 19 gram-7 118 ml TN Q72H PRN Constip ation 01/09/24 08/23/25 gram/118 mL enema (Fleet Enema) tramadol 100 mg tablet 100 mg PO Q8HR PRN Pain 01/3008/23/25 insulin lispro 100 unit/mL 1 sliding scale dose subcut .bcac 08/23/25 08/23/25 subcutaneous pen (Humalog KwikPen (U-100) Insulin) linaclotide 145 mcg capsule 145 mcg PO QDAY 08/23/25 1 10/24/24 (Linzess) methocarbamol 500 mg tablet 500 mg PO TID 08/23/25 Previous Rx's ?Medication ?Instructions ?Recorded albuterol sulfate 90 mcg/actuation 1 puff inhalation Q 4HR PRN 11/05/20 aerosol inhaler Shortness Of Breath Or Wheez ing #0 grams tamsulosin 0.4 mg capsule 0.4 mg PO QDAY #30 caps 10/21 calcium acetate(phosphat bind) 667 667 mg PO TIDWM #0 caps 05/10/21 mg capsule pantoprazole 40 mg tablet,delayed 40 mg PO BID #60 tab s 08/25/25 release sucralfate 100 mg/mL oral 10 ml PO QID #1,000 mL 08/25 suspension Allergies Allergy/AdvReac Type Severity Reaction Status Date / Time No Known Allergies Allergy Verified 02/22/24 05:30 Review of Systems Review of Systems Systems Reviewed: All systems reviewed, normal except as documented Past Medical History Past Medical History NEUROLOGIC: Positive Neurological Disorders, Cerebrovascular Accident, Paralysis and Head Trauma; Negative Seizures CARDIAC: Positive Cardiac Disorders, Deep Vein Thrombosis and Hypertension; Negative Congestive Heart Failure, Congenital Heart Disease or Hypotension RESPIRATORY: Positive Chronic Obstructive Pulmonary Disease (COPD) and Asthma; Negative Cystic Fibrosis GASTROINTESTINAL: Positive Hepatitis, Hemorrhoids and Obesity; Negative Gastrointestinal Disorders, Cirrhosis or Pancreatic Cancer GENITOURINARY: Positive Benign Prostatic Hyperplasia; Negative Genitourinary Disorders, Renal Disease or Prostate Cancer REPRODUCTIVE: Negative Testicular Cancer MUSCULOSKELETAL: Positive Musculoskeletal Disorders; Negative Myasthenia Gravis or Bone Cancer ENT: Positive Head Trauma ENDOCRINE: Positive Diabetes Mellitus Type 2; Negative Diabetes Mellitus Type 1 or Syndrome of Inappropriate Antidiuretic Hormone (SIADH) HEMATOLOGIC: Negative Blood Disorders or Sickle Cell Disease PSYCHO/SOCIAL: Positive Anxiety; Negative Psychiatric Problems OTHER HISTORY: Positive Hospitalization and Blood Transfusions; Negative Autoimmune Disease, Down Syndrome, Blood Transfusion Reaction, Anesthesia Reactions, Organ Transplant, Chemotherapy, Radiation Therapy, Hyperbaric Therapy, MRSA, VRSA, Vancomycin-Resistant Enterococci, Human Immunodeficiency Virus (HIV), Chicken Pox, Measles, Mumps, Pertussis, Clostridium Difficile, Cancer, Prostate Cancer or Testicular Cancer Family History FAMILY HISTORY: Positive Family Cardiac Disorders; Negative Family Neurologic Problems, Family Cancer, Family Surgery or Family Anesthesia Reaction Surgical History SURGICAL: Positive Neurologic Surgery; Negative Cardiac Surgery, Endocrine Surgery, Thyroidectomy, Ear Surgery, Abdominal Surgery, Nephrectomy, Joint Replacement, Vasectomy or Organ Transplant Social History SMOKING STATUS: Former smoker SECOND HAND EXPOSURE: No SUBSTANCE USE: does not use ED Exam General Limitations: Present no limitations General appearance: Present alert and in no apparent distress Head Head exam: Present atraumatic Eye Eye exam: Present normal appearance, PERRL and EOMI ENT ENT exam: Present normal exam, normal oropharynx and mucous membranes moist Neck Neck exam: Present normal inspection, full ROM and trachea midline Chest Chest inspection: Present normal inspection and symmetric chest wall rise Respiratory Respiratory exam: Present normal lung sounds bilaterally Cardiovascular Cardiovascular exam: Present regular rate, normal rhythm and normal heart sounds Neurological Exam Neurological exam: Present alert, oriented X3 and CN II-XII intact Psychiatric Psychiatric exam: Present normal affect and normal mood Skin Skin exam: Present warm, dry, intact and normal color Course Quality Measures none Orders Category Date Time Status EKG (ED ONLY) *Do not use* NOW Care 08/03/25 02:56 Completed IV [Insert IV] STAT Care 08/03/25 02:57 Completed CXRP [XR chest 1V portable] Stat Exams 08/03/25 02:54 Completed EKG (ED Only) Stat Exams 08/03/25 02:56 Draft US venous doppler LE LT Stat Exams 08/03/25 02:56 Completed CBC Stat Lab 08/03/25 03:22 Completed CMP [Comprehensive Metabolic Panel] Stat Lab 08/03/25 03:22 Completed PT [Prothrombin Time with INR] Stat Lab 08/03/25 03:22 Completed PTT [Partial Thromboplastin Time] Stat Lab 08/03/25 03:22 Completed Troponin I Stat Lab 08/03/25 03:22 Completed HYDROcodone/APAP 10/325 [[place] 10/325] Med 08/03/25 02:56 Discontinued 1 tab PO X1 ONE Vital Signs Vital signs: Vital Signs Temperature 98.7 F 08/02/25 23:48 Pulse Rate 88 08/02/25 23:48 Respiratory Rate 17 08/02/25 23:48 Blood Pressure 151/88 H 08/02/25 23:48 Pulse Oximetry (%) 95 08/02/25 23:48 Oxygen Delivery Method Room Air 08/02/25 23:48 Discharge Plan Plan Patient Disposition: HOME (Self Care) Patient condition on transfer: Stable Prescriptions/Referrals Prescriptions/Med Rec: No Action insulin glargine [Basaglar KwikPen U-100 Insulin] 100 unit/mL (3 mL) insulin pen 5 unit SUBCUT HS carvedilol 12.5 mg tablet 12.5 mg PO BID Rx Instructions: hold of SBP < 110 or pulse < 60 amlodipine 10 mg Tablet 10 mg PO QDAY Rx Instructions: hold if SBP < 110 or pulse < 60 calcium acetate(phosphat bind) 667 mg capsule 667 mg PO TIDWM Qty: 0 0RF Rx Instructions: 1 capsule by mouth with meals for CKD stage 3 gabapentin 300 mg Capsule 300 mg PO TID Rx Instructions: 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 albuterol sulfate 90 mcg/actuation HFA aerosol inhaler 1 puff INHALATION Q4HR PRN (Reason: Shortness Of Breath Or Wheezing) Qty: 0 0RF tamsulosin 0.4 mg Capsule 0.4 mg PO QDAY Qty: 30 0RF Rx Instructions: for bladder spasms methocarbamol 500 mg tablet 500 mg PO TID Patient Comments: TAKE 1 TABLET BY MOUTH 3 TIMES A DAY Linzess 145 mcg capsule 145 mcg PO QDAY Patient Comments: TAKE 1 CAPSULE BY MOUTH EVERY DAY AT LEAST 30 MINS BEFORE THE FIRST MEAL OF THE DAY ON EMPTY STOMACH insulin lispro [Humalog KwikPen Insulin] 100 unit/mL insulin pen 1 sliding scale dose SUBCUT .[facility] Patient Comments: before meals pantoprazole 40 mg tablet,delayed release (DR/EC) 40 mg PO BID Qty: 60 0RF Rx Instructions: Please take this medicine 1 hour before food. sucralfate 100 mg/mL suspension 10 ml PO QID Qty: 1000 0RF Rx Instructions: swish in mouth and swallow; please take this medicine 15 min before food. docusate sodium 250 mg Capsule 250 mg PO BID lactulose 10 gram/15 mL Solution 15 ml PO BID PRN (Reason: Constipation) Fleet Enema 19-7 gram/118 mL Enema 118 ml TN Q72H PRN (Reason: Constipation) Rx Instructions: To be administered the following shift if Dulcolax suppository is ineffective, notify md if no result tramadol 100 mg Tablet 100 mg PO Q8HR PRN (Reason: Pain) Rx Instructions: PRN pain moderate(4-6); pain severe (6-9) Problem List Clinical Impression: Acute pain of left thigh Patient/Caregiver Discharge Instructions Education Materials: Communicating About Pain Additional Instructions: Continue your medication as prescribed. Today your ultrasound does not show that you have a clot in your leg. No cellulitis or infection. Return to Emergency Department for worsening symptoms, or any other concerns. Print Language: [place] Island[place] Stand Alone Forms: Tessa Award Info., Patient Portal Info Letter MDM Clinical Information Provided by: patient Medical Records reviewed [facility] Meds/Rx considered, not ordered None Labs/Rad/Tests considered, not ordered None Chronic Illness/Social Conditions which may negatively complicate care or outcome(s)-explain: CVA/aphasic Labs Labs: interpreted by me Imaging Imaging interpretation: interpreted by me Medication Administration(s) Medication Administration History Discontinued Medications Hydrocodone Bitart/Acetaminophen (Hydrocodone/Apap 10/325 Tab) 1 tab PO X1 ONE Stop: 08/03/25 02:57 Last Admin: 08/03/25 03:27 Dose: 1 tab Documented By: EB Diagnosis Differential Diagnosis ED Complaint MDM: DVT, Noncompliance, Low K, chronic ain, cellulitis
[2025-08-03 03:35] LABS: Basophils # (Auto) 0.1 Thou/mm3 (0.0-0.2); Basophils % (Auto) 1 % (0-2.5); Eosinophils # (Auto) 0.3 Thou/mm3 (0.0-0.5); Eosinophils % (Auto) 4 % (0-10); Hematocrit 30.4 % (41.0-53.0); Hemoglobin 9.2 g/dL (13.5-16.0); Immature Granulocytes Auto 0.01 Thou/mm3 (0.00-0.00); Lymphocytes # (Auto) 1.7 Thou/mm3 (1.0-4.8); Lymphocytes % (Auto) 28 % (10-50); Mean Corpuscular HGB Conc 30.3 g/dl (31.0-37.0); Mean Corpuscular Hemoglobin 25.2 pg (25.0-35.0); Mean Corpuscular Volume 83 fL (80-100); Monocytes # (Auto) 0.7 Thou/mm3 (0.0-0.8); Monocytes % (Auto) 12 % (0-12); Neutrophils # (Auto) 3.4 Thou/mm3 (1.8-7.7); Neutrophils % (Auto) 55 % (37-80); Nucleated Red Blood Cell # 0.00 Thou/mm3 (0.00-0.00); Nucleated Red Blood Cell % 0 /100 WBC (0); Platelet Count 164 Thou/mm3 (140-440); RDW Standard Deviation 44.6 fL (35.1-43.9); Red Blood Count 3.65 Miln/mm3 (4.50-5.90); White Blood Count 6.2 Thou/mm3 (3.8-10.6)
[2025-08-03 03:50] LABS: INR 1.3 (0.9-1.3); Partial Thromboplastin Time 41.9 Seconds (22.0-36.0); Prothrombin Time 13.9 Seconds (9.0-12.2)
[2025-08-03 04:06] LABS: Alanine Aminotransferase 8 U/L (10-49); Albumin, Serum 3.8 gm/dL (3.5-5.0); Albumin/Globulin Ratio 1.1 (1.2-2.2); Alkaline Phosphatase 105 U/L (46-116); Anion Gap 9 (7-16); Aspartate Amino Transferase 17 U/L (0-34); BUN/Creatinine Ratio 17 Ratio (12-20); Bilirubin,Total 0.2 mg/dL (0.3-1.2); Blood Urea Nitrogen 22 mg/dL (9-23); Calcium 8.9 mg/dL (8.3-10.6); Calcium (Corrected) 9.1 mg/dL (8.5-10.1); Carbon Dioxide 27.3 mMol/L (20.0-31.0); Chloride 111 mMol/L (98-107); Creatinine (Component) 1.3 mg/dL (0.6-1.3); Estimated Creatinine Clearance 67.4 mL/min (>60); Globulin 3.4 gm/dL (2.3-3.5); Glucose 92 mg/dL (74-106); Osmolality,Calculated 295 (275-295); Potassium 4.4 mMol/L (3.4-5.1); Sodium 147 mMol/L (136-145); Total Protein 7.2 gm/dL (5.7-8.2); Troponin I < 0.020 ng/mL (0.0-0.045); eGFR > 60 See Note
[2025-08-03 05:21] VITALS: BP 166/88; PULSE 72; RESP 17; TEMP 36.7; O2SAT 100
--- NOTE | 2025-08-03 05:31 | PRELIM_ITS ---
Left lower extremity venous Doppler ultrasound. August 03, 2025 0401 hours Clinical history: 49 yo with left leg pain, HX dvt Technique: Duplex scan of the left lower extremity deep venous systems was performed utilizing 2D grayscale imaging, Doppler spectral analysis and color flow Doppler and with compression. Comparison: Compared with the prior study dated November 13, 2024. Findings: Calderon scale, color flow and spectral Doppler evaluation of the left lower extremity deep veins was performed. The common femoral, superficial femoral and popliteal veins are patent and compressible. Normal respiratory variation is noted. There is no evidence of occlusive or nonocclusive thrombus. The great saphenous vein is patent and compressible at the level of the saphenofemoral junction. Impression: No sonographic evidence of deep venous thrombosis in the left lower extremity. Report Electronically Signed By: Sari Connor 08/03/2025 5:31:03 AM [EST]
[2025-08-03 07:31] VITALS: BP 128/72; PULSE 77; RESP 17; TEMP 36.6; O2SAT 98
--- NOTE | 2025-08-03 08:20 | PC.NURSE ---
@0815 - EMS AT BEDSIDE TO OUTSIDE SALES ACCOUNT MANAGER PT FOR TRANSPORTATION BACK HOME.
--- NOTE | 2025-08-03 18:45 | PC.NURSE ---
SPOKE TO PT OVER THE PHONE AND CONFIRMED PHONE # & . PT GAVE VERBAL CONSENT FOR CAREGIVER, AKILA, TO GAMEPLAY ENGINEER DISCHARGE INSTRUCTIONS FOR PT AT THIS TIME. PARVIZ Reyna RN TELEPHONE WITNESS.
== END 2025-08-03 08:16 | disposition home or self-care (01) ==
PROVIDERS: Emergency Provider Emergency Medicine; PCP Physician Assistant
DX: M79.652 Pain in left thigh (principal); M79.662 Pain in left lower leg; R10.30 Lower abdominal pain, unspecified; R05.9 Cough, unspecified; I45.89 Other specified conduction disorders
CPT/HCPCS: 36415; 71045; 80053; 81001; 84484; 85025; 85610; 85730; 93005; 93971; 99283; A9270

== ENCOUNTER 2025-08-15 12:46 | Emergency (ER) | payer MEDICAID, SELFPAY ==
[2025-08-15 13:00] VITALS: PULSE 78; RESP 20; O2SAT 96; BMI 22.6
[2025-08-15 13:18] VITALS: BP 140/89; PULSE 80; RESP 16; TEMP 37; O2SAT 98
[2025-08-15] MEDS: HYDROmorphone INJ 2 MG/ML VIAL 1 MG IVP (13:25)
[2025-08-15 13:41] LABS: Basophils # (Auto) 0.1 Thou/mm3 (0.0-0.2); Basophils % (Auto) 1 % (0-2.5); Eosinophils # (Auto) 0.4 Thou/mm3 (0.0-0.5); Eosinophils % (Auto) 5 % (0-10); Hematocrit 31.3 % (41.0-53.0); Hemoglobin 9.5 g/dL (13.5-16.0); Immature Granulocytes Auto 0.02 Thou/mm3 (0.00-0.00); Lymphocytes # (Auto) 1.6 Thou/mm3 (1.0-4.8); Lymphocytes % (Auto) 21 % (10-50); Mean Corpuscular HGB Conc 30.4 g/dl (31.0-37.0); Mean Corpuscular Hemoglobin 25.0 pg (25.0-35.0); Mean Corpuscular Volume 82 fL (80-100); Monocytes # (Auto) 0.8 Thou/mm3 (0.0-0.8); Monocytes % (Auto) 11 % (0-12); Neutrophils # (Auto) 4.6 Thou/mm3 (1.8-7.7); Neutrophils % (Auto) 62 % (37-80); Nucleated Red Blood Cell # 0.00 Thou/mm3 (0.00-0.00); Nucleated Red Blood Cell % 0 /100 WBC (0); Platelet Count 229 Thou/mm3 (140-440); RDW Standard Deviation 42.1 fL (35.1-43.9); Red Blood Count 3.80 Miln/mm3 (4.50-5.90); White Blood Count 7.4 Thou/mm3 (3.8-10.6)
--- NOTE | 2025-08-15 13:58 | EDNOTE_ITS ---
<Statement entered by Antonette Richards MD - 08/31/25 17:41> As co-signing physician, I was present and available for consult prn. I concur with the plan and care as documented by the midlevel provider. ED General RME/HPI General Chief complaint: Wound/Laceration Stated complaint: SORES Time Seen by Provider: 08/15/25 12:52 Arrival date/time: 08/15/25 12:46 CC: Blisters to the back of the left leg HPI patient presents to the ER via EMS with stable vital signs. The patient is hemiaplasia secondary to a stroke 4 years ago. Patient states he was seen in another ER, was given a air mattress which she slept on without a sheet, resulting in abrasions to his leg, the patient woke up found attached to the bed with blisters forming 2 days ago. Since then the patient has gotten off the air mattress and and is noted that the blisters have not resolved bringing him in. The patient also has chronic cramps in the left leg. Has been seen at this facility and in the neighboring emergency room for the same complaint. Related Data Home Medications ?Medication ?Instructions ?Recorded ?Confirmed atorvastatin 40 mg tablet 40 mg PO HS 01/23/20 4 gabapentin 300 mg capsule 300 mg PO TID 01/23/2002/21 hydralazine 25 mg tablet 25 mg PO HS 01/23/20 4 insulin glargine 100 unit/mL (3 9 unit subcut HS 06/0702/22/24 mL) subcutaneous pen (Basaglar KwikPen U-100 Insulin) amlodipine 10 mg tablet 10 mg PO QDAY 04/30/2102/21 carvedilol 12.5 mg tablet 12.5 mg PO BID 04/30/2101/30 acetaminophen 325 mg tablet 650 mg PO Q6HR PRN pain 02/22/24 (Tylenol) bisacodyl 10 mg rectal suppository 10 mg NJ PRN PRN Co nstipation 01/09/24 02/22/24 (Dulcolax (bisacodyl)) docusate sodium 250 mg capsule 250 mg PO BID 01/09/24 02/22/24 ferrous sulfate 325 mg (65 mg 325 mg PO QDAY 01/09/24 02/22/24 iron) tablet fluticasone propionate 50 1 spray intranasal Q24H PRN 01/09/24 02/22/24 mcg/actuation nasal Allergic Symptoms spray,suspension glucagon 1 mg injection kit 1 mg Q15MIN PRN Hypoglycem ia 01/09/24 02/22/24 insulin lispro 100 unit/mL 16 unit subcut QPM 01/09/24 02/22/24 subcutaneous solution lactulose 10 gram/15 mL oral 30 ml PO Q8HR PRN Constip ation 01/09/24 02/22/24 solution magnesium hydroxide 400 mg/5 mL 30 ml PO Q72H PRN cons tipation 01/09/24 02/22/24 oral suspension (Milk of Magnesia) sodium phosphates 19 gram-7 118 ml NJ Q72H PRN Constip ation 01/09/24 02/22/24 gram/118 mL enema (Fleet Enema) triamcinolone acetonide 0.1 % 1 applic topical Q12HR P RN Eczema 01/09/24 02/22/24 topical cream guaifenesin 100 mg/5 mL oral liquid 200 mg PO Q6HR PRN Cough 02/22/24 ipratropium bromide 0.02 % 2.5 ml inhalation Q4HR PRN 02/22/24 02/22/24 solution for inhalation Shortness Of Breath ondansetron HCl 4 mg tablet 4 mg PO [id number] PRN Nausea And 02/22/24 02/22/24 Vomiting rivaroxaban 15 mg tablet (Xarelto) 15 mg PO BID 02/22/24 rivaroxaban 20 mg tablet (Xarelto) 20 mg PO QDAY 02/2102/22/24 sennosides 8.6 mg tablet (senna) 8.6 mg PO QDAY 02/22/24 tramadol 100 mg tablet 100 mg PO Q8HR PRN Pain 01/3002/22/24 Previous Rx's ?Medication ?Instructions ?Recorded albuterol sulfate 90 mcg/actuation 1 puff inhalation Q 4HR PRN 11/05/20 aerosol inhaler Shortness Of Breath Or Wheez ing #0 grams tamsulosin 0.4 mg capsule 0.4 mg PO QDAY #30 caps 10/21 calcium acetate(phosphat bind) 667 667 mg PO TIDWM #0 caps 05/10/21 mg capsule cefdinir 300 mg capsule 300 mg PO BID #14 caps 09/09 furosemide 20 mg tablet (Lasix) 20 mg PO QDAY #30 tabs 09/09/24 amoxicillin 500 mg-potassium 1 tab PO BID #20 tabs 07/25 clavulanate 125 mg tablet Allergies Allergy/AdvReac Type Severity Reaction Status Date / Time No Known Allergies Allergy Verified 02/22/24 05:30 Review of Systems Review of Systems Narrative Review of Systems: GEN: No fever, no chills, no weight loss EYES: No discharge, no visual changes, no pain HEENT: No ear pain, no congestion, no sore throat PULM: No shortness of breath, no cough, no congestion CV: No chest pain, no dyspnea on exertion, no palpitations GI: No nausea, no vomiting, no diarrhea, no pain, no constipation : No frequency, no urgency, no dysuria MUSC/SKEL: No joint pain, no back pain, + leg cramps SKIN: + Leg blisters, no rash PSYCH: No hallucinations, no depression HEME/LYMPH: No easy bleeding or bruising tendencies NEURO: No weakness, no headache ED Exam Narrative Physical exam: [General: In moderate discomfort but not in any acute distress, deconditioned. Head normocephalic HEENT: Within acceptable limits Neck is supple nontender Chest equal chest rise nontender to palpation Respiratory: Clear to auscultation no wheezes crackles or rubs CV: Rate rhythm is regular no murmurs rubs or clicks Abdomen is distended secondary to body habitus soft nontender no masses positive bowel sounds all 4 quadrants Back: No CVA tenderness no spinous process tenderness from cervical spine thoracic and lumbar spine Skin: Serous blisters to the calf of the left lower extremity left hamstring and just above the left lateral ankle. There is also a small ruptured blister to center back. No surrounding erythema or edema no exudate to any of these no active bleeding. Otherwise skin is intact no petechiae rash induration ulceration or crepitus Extremities: Moving all extremity against resistance cap refill less than 2 seconds neurosensory intact Neuro: Awake alert oriented x3 [place] coma 15 no focal deficits] Course Quality Measures none Orders Category Date Time Status Saline [Insert IV] NOW Care 08/15/25 13:14 Completed CBC Stat Lab 08/15/25 13:30 Completed CMP [Comprehensive Metabolic Panel] Stat Lab 08/15/25 13:30 Completed HYDROmorphone INJ [Dilaudid Inj] Med 08/15/25 13:14 Discontinued 1 mg IVP X1 ONE Vital Signs Vital signs: Vital Signs Temperature 98.6 F 08/15/25 13:18 Pulse Rate 80 08/15/25 13:18 Respiratory Rate 16 08/15/25 13:18 Blood Pressure 140/89 H 08/15/25 13:18 Pulse Oximetry (%) 98 08/15/25 13:18 Oxygen Delivery Method Room Air 08/15/25 13:18 PROCEDURES: Procedure Comment Patient rolled right lateral, and on the posterior section of the left leg dressings were applied after the blisters were debrided to the hamstring and the calf of the leg. There is a small area at center back mid thoracic that also had a dressing applied to it. Patient tolerated the procedure well. Note: There was no surrounding erythema edema no active bleeding or exudate. These per description where friction blisters caught created by an air mattress. Discharge Plan Plan Patient Disposition: HOME (Self Care) Patient condition on transfer: Stable Prescriptions/Referrals Prescriptions/Med Rec: No Action insulin glargine [Basaglar KwikPen U-100 Insulin] 100 unit/mL (3 mL) insulin pen 9 unit SUBCUT HS carvedilol 12.5 mg tablet 12.5 mg PO BID Rx Instructions: hold of SBP < 110 or pulse < 60 amlodipine 10 mg Tablet 10 mg PO QDAY Rx Instructions: hold if SBP < 110 or pulse < 60 calcium acetate(phosphat bind) 667 mg capsule 667 mg PO TIDWM Qty: 0 0RF Rx Instructions: 1 capsule by mouth with meals for CKD stage 3 atorvastatin 40 mg Tablet 40 mg PO HS hydralazine 25 mg Tablet 25 mg PO HS Rx Instructions: for HTN Hold if SBP <110 or Pulse <60 gabapentin 300 mg Capsule 300 mg PO TID Rx Instructions: 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 albuterol sulfate 90 mcg/actuation HFA aerosol inhaler 1 puff INHALATION Q4HR PRN (Reason: Shortness Of Breath Or Wheezing) Qty: 0 0RF tamsulosin 0.4 mg Capsule 0.4 mg PO QDAY Qty: 30 0RF Rx Instructions: for bladder spasms cefdinir 300 mg capsule 300 mg PO BID Qty: 14 0RF furosemide [Lasix] 20 mg tablet 20 mg PO QDAY Qty: 30 0RF ferrous sulfate 325 mg (65 mg iron) Tablet 325 mg PO QDAY Rx Instructions: for supplement acetaminophen [Tylenol] 325 mg Tablet 650 mg PO Q6HR PRN (Reason: pain) Rx Instructions: PRN pain (1-10) triamcinolone acetonide 0.1 % Cream 1 applic TOPICAL Q12HR PRN (Reason: Eczema) Rx Instructions: Apply to Head-top of topically magnesium hydroxide [Milk of Magnesia] 400 mg/5 mL Suspension 30 ml PO Q72H PRN (Reason: constipation) Rx Instructions: No bm for 3 days bisacodyl [Dulcolax (bisacodyl)] 10 mg Suppository 10 mg NJ PRN PRN (Reason: Constipation) Rx Instructions: To be administered the following shift if mom is ineffective. insulin lispro 100 unit/mL Solution 16 unit subcut QPM Rx Instructions: AC Dinner docusate sodium 250 mg Capsule 250 mg PO BID lactulose 10 gram/15 mL Solution 30 ml PO Q8HR PRN (Reason: Constipation) fluticasone propionate 50 mcg/actuation [place],Suspension 1 spray INTRANASAL Q24H PRN (Reason: Allergic Symptoms) Rx Instructions: administer in both nostril Fleet Enema 19-7 gram/118 mL Enema 118 ml NJ Q72H PRN (Reason: Constipation) Rx Instructions: To be administered the following shift if Dulcolax suppository is ineffective, notify md if no result glucagon 1 mg Kit 1 mg Q15MIN PRN (Reason: Hypoglycemia) Rx Instructions: Intramuscularly for Blood ugar <60 ipratropium bromide 0.02 % Solution 2.5 ml INHALATION Q4HR PRN (Reason: Shortness Of Breath) tramadol 100 mg Tablet 100 mg PO Q8HR PRN (Reason: Pain) Rx Instructions: PRN pain moderate(4-6); pain severe (6-9) Xarelto 15 mg tablet 15 mg PO BID Rx Instructions: for DVT for 21 days. Start date:02/14/24, End date 03/06/24. Xarelto 20 mg Tablet 20 mg PO QDAY Rx Instructions: for DVT for 70 days. Start date 03/07/24, End date 05/16/24. ondansetron HCl 4 mg tablet 4 mg PO [id number] PRN (Reason: Nausea And Vomiting) sennosides [senna] 8.6 mg Tablet 8.6 mg PO QDAY Rx Instructions: Senna-Tabs 1 tablet for constipation guaifenesin 100 mg/5 mL Liquid 200 mg PO Q6HR PRN (Reason: Cough) Rx Instructions: 10ml amoxicillin-pot clavulanate 500-125 mg tablet 1 tab PO BID Qty: 20 0RF Referrals: Huber Mckeon PA-C [Primary Care Provider] - In 1 week Problem List Clinical Impression: Friction blister of left leg, Leg cramp Patient/Caregiver Discharge Instructions Education Materials: ED Blister (Adult), ED Leg Spasm Additional Instructions: Have the dressings on your legs changed once a week. If there are any signs of infection such as redness or pus return to the emergency room meetly for further evaluation. Print Language: Thai Stand Alone Forms: Tessa Award Info., Patient Portal Info Letter PA/WILLIAM Supervising Physician PA/WILLIAM Supervising Physician: Aric Nichole ENP MDM Medication Administration(s) Medication Administration History Discontinued Medications Hydromorphone HCl (Hydromorphone Inj 2 Mg/Ml Vial) 1 mg IVP X1 ONE Stop: 08/15/25 13:15 Last Admin: 08/15/25 13:25 Dose: 1 mg Documented By: GIACOMO
[2025-08-15 14:01] LABS: Alanine Aminotransferase 10 U/L (10-49); Albumin, Serum 4.0 gm/dL (3.5-5.0); Albumin/Globulin Ratio 1.2 (1.2-2.2); Alkaline Phosphatase 111 U/L (46-116); Anion Gap 8 (7-16); Aspartate Amino Transferase 16 U/L (0-34); BUN/Creatinine Ratio 20 Ratio (12-20); Bilirubin,Total < 0.2 mg/dL (0.3-1.2); Blood Urea Nitrogen 36 mg/dL (9-23); Calcium 9.0 mg/dL (8.3-10.6); Calcium (Corrected) 9.0 mg/dL (8.5-10.1); Carbon Dioxide 28.2 mMol/L (20.0-31.0); Chloride 109 mMol/L (98-107); Creatinine (Component) 1.8 mg/dL (0.6-1.3); Globulin 3.3 gm/dL (2.3-3.5); Glucose 129 mg/dL (74-106); Osmolality,Calculated 299 (275-295); Potassium 4.3 mMol/L (3.4-5.1); Sodium 145 mMol/L (136-145); Total Protein 7.3 gm/dL (5.7-8.2); eGFR 45 See Note
--- NOTE | 2025-08-15 15:13 | PC.SS ---
SS follow up note; SS was informed by patient's nurse that patient was needing transportation. SS [facility] up [facility], reference # [id number].
[2025-08-15 16:38] VITALS: BP 138/58; PULSE 76; RESP 16; TEMP 36.9; O2SAT 100
[2025-08-15 18:32] VITALS: BP 136/82; PULSE 77; RESP 16; O2SAT 99
== END 2025-08-15 19:33 | disposition home or self-care (01) ==
PROVIDERS: Registered Nurse General Practice; Emergency Provider Emergency Medicine; PCP Physician Assistant
DX: S80.822A Blister (nonthermal), left lower leg, initial encounter (principal); X58.XXXA Exposure to other specified factors, initial encounter
CPT/HCPCS: 36415; 80053; 85025; 99283; J1171

== ENCOUNTER 2025-08-22 21:50 | Inpatient (IN) | payer MEDICAID, SELFPAY ==
[2025-08-22 21:57] VITALS: BP 147/75; PULSE 77; RESP 18; TEMP 36.6; O2SAT 97
[2025-08-22 22:12] VITALS: PULSE 74; RESP 16; O2SAT 99
[2025-08-22 22:18] VITALS: BP 132/74; PULSE 78; RESP 17; TEMP 36.3; O2SAT 97
--- NOTE | 2025-08-22 22:39 | PD.EDWOUND ---
ED Wound/Laceration-RME/HPI General Chief Complaint: Ankle/Foot Injury Stated Complaint: ANKLE WOUND Time Seen by Provider: 08/22/25 22:39 Arrival date/time: 08/22/25 21:50 RME / HPI RME / HPI narrative: See [facility] for Dr. Llanos's HPI Documentation. Related Data Home Medications ?Medication ?Instructions ?Recorded ?Confirmed gabapentin 300 mg capsule 300 mg PO TID 01/23/20 08/23/25 insulin glargine 100 unit/mL (3 5 unit subcut HS 06/07/20 08/23/25 mL) subcutaneous pen (Basaglar KwikPen U-100 Insulin) amlodipine 10 mg tablet 10 mg PO QDAY 04/30/21 08/23/25 carvedilol 12.5 mg tablet 12.5 mg PO BID 04/30/21 08/23/25 docusate sodium 250 mg capsule 250 mg PO BID 01/09/24 08/23/25 lactulose 10 gram/15 mL oral 15 ml PO BID PRN Constipation 01/09/24 08/23/25 solution sodium phosphates 19 gram-7 118 ml [place] Q72H PRN Constipation 01/09/24 08/23/25 gram/118 mL enema (Fleet Enema) tramadol 100 mg tablet 100 mg PO Q8HR PRN Pain 02/22/24 08/23/25 insulin lispro 100 unit/mL 1 sliding scale dose subcut .bcac 08/23/25 08/23/25 subcutaneous pen (Humalog KwikPen (U-100) Insulin) linaclotide 145 mcg capsule 145 mcg PO QDAY 08/23/25 08/23/25 (Linzess) methocarbamol 500 mg tablet 500 mg PO TID 08/23/25 08/23/25 Previous Rx's ?Medication ?Instructions ?Recorded albuterol sulfate 90 mcg/actuation 1 puff inhalation Q4HR PRN 11/05/20 aerosol inhaler Shortness Of Breath Or Wheezing #0 grams tamsulosin 0.4 mg capsule 0.4 mg PO QDAY #30 caps 11/30/20 calcium acetate(phosphat bind) 667 667 mg PO TIDWM #0 caps 09/10/21 mg capsule pantoprazole 40 mg tablet,delayed 40 mg PO BID #60 tabs 08/25/25 release sucralfate 100 mg/mL oral 10 ml PO QID #1,000 mL 08/25/25 suspension Allergies Allergy/AdvReac Type Severity Reaction Status Date / Time No Known Allergies Allergy Verified 02/22/24 05:30 Review of Systems Review of Systems Systems Reviewed: All systems reviewed, normal except as documented Past Medical History Past Medical History NEUROLOGIC: Positive Neurological Disorders, Cerebrovascular Accident, Paralysis and Head Trauma CARDIAC: Positive Cardiac Disorders, Deep Vein Thrombosis and Hypertension RESPIRATORY: Positive Chronic Obstructive Pulmonary Disease (COPD) and Asthma GASTROINTESTINAL: Positive Hepatitis, Hemorrhoids and Obesity GENITOURINARY: Positive Benign Prostatic Hyperplasia MUSCULOSKELETAL: Positive Musculoskeletal Disorders ENT: Positive Head Trauma ENDOCRINE: Positive Diabetes Mellitus Type 2 PSYCHO/SOCIAL: Positive Anxiety OTHER HISTORY: Positive Hospitalization and Blood Transfusions Family History FAMILY HISTORY: Positive Family Cardiac Disorders Surgical History SURGICAL: Positive Neurologic Surgery ED Exam Narrative Physical exam: See MDM for Dr. Llanos's Physical Exam Documentation. Course Quality Measures none Orders Category Date Time Status Bedside COVID-19 Antigen Test NOW Care 08/22/25 22:44 Completed Bedside Influenza A&B Antigen Test NOW Care 08/22/25 22:44 Completed COVID-19 Screening Questionnaire NOW Care 08/23/25 03:[address] Screening NOW Care 08/22/25 22:46 Completed Decision to Admit X1 Care 08/23/25 03:09 Completed NPO NOW Care 08/23/25 00:30 Completed Saline [Insert IV] NOW Care 08/22/25 22:44 Completed Transfuse,blood/blood products NOW Care 08/23/25 00:03 Completed Consult to Gastroenterology Stat Cons 08/23/25 00:29 Ordered Diet NPO (NOW) Diet 08/23/25 00:[address] abdomen pelvis w con Stat Exams 08/22/25 22:[address] ankle LT w con Stat Exams 08/22/25 22:46 Completed US gall bladder Stat Exams 08/23/25 01:15 Completed XR chest 1V portable Stat Exams 08/22/25 22:46 Completed Amylase Stat Lab 08/22/25 23:10 Completed BNP [B-Type Natriuretic Peptide] Stat Lab 08/22/25 23:48 Completed Beta Hydroxybutyrate Stat Lab 08/22/25 23:10 Completed Bilirubin,Direct Stat Lab 08/22/25 23:10 Completed Blood Culture (Lab) Stat Lab 08/22/25 23:05 Results CBC Stat Lab 08/22/25 23:10 Completed CMP [Comprehensive Metabolic Panel] Stat Lab 08/22/25 23:10 Completed CRP [C-Reactive Protein] Stat Lab 08/22/25 23:10 Completed ESR [Sed Rate (ESR)] Stat Lab 08/22/25 23:10 Completed Hemoglobin A1C [Glycohemoglobin w (eAG)] Stat Lab 08/22/25 23:48 Completed Lactate (Lactic Acid) Stat Lab 08/22/25 23:10 Completed Lipase Stat Lab 08/22/25 23:10 Completed Magnesium Stat Lab 08/22/25 23:10 Completed Occult Blood, Stool (LAB) Routine Lab 08/23/25 00:30 Completed Path Review Blood Smear Stat Lab 08/22/25 23:10 Completed Procalcitonin Stat Lab 08/22/25 23:10 Completed TSH [Thyroid Stimulating Hormone] Stat Lab 08/22/25 23:10 Completed Type and Screen Stat Lab 08/23/25 00:12 Completed UA, C/S IF [Urinalysis, C/S if Indicated] Stat Lab 08/23/25 02:31 Completed Uric Acid Stat Lab 08/22/25 23:10 Completed Urine Culture Stat Lab 08/23/25 02:31 Completed VBG [Venous Blood Gas] Stat Lab 08/22/25 23:10 Completed prbc [Red Blood Cells] Stat Lab 08/23/25 00:12 Completed Famotidine Inj [Pepcid Inj] Med 08/23/25 00:29 Discontinued 20 mg IVP X1 ONE Morphine* Inj Med 08/22/25 22:44 Discontinued 2 mg IV X1 ONE Ondansetron Inj [Zofran Inj] Med 08/22/25 22:44 Discontinued 4 mg IVP X1 ONE Pantoprazole Inj [Protonix Inj] Med 08/23/25 00:29 Discontinued 80 mg IVP X1 ONE Sodium Chloride 0.9% 1000 ml [Ns] 1,000 ml Med 08/22/25 22:44 Discontinued IV 999 mls/hr Vital Signs Vital signs: Vital Signs Temperature 97.9 F 08/22/25 21:57 Pulse Rate 77 08/22/25 21:57 Respiratory Rate 18 08/22/25 21:57 Blood Pressure 147/75 H 08/22/25 21:57 Pulse Oximetry (%) 97 08/22/25 21:57 Oxygen Delivery Method Room Air 08/22/25 21:57 PROCEDURES: Stool Hemoccult Procedural Steps Taken: stool placed in appropriate test area, developer placed on stool and control areas and controls appropriately positive and negative Hemoccult result: positive Wound / Laceration MDM Narrative MDM Narrative:: This section includes all my notes and documentations, including HPI, PE, and ED course. 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 He also reports abdominal pain and nausea and rectal bleeding. No other complaints. ROS: All negative except as documented in HPI. Physical Exam: General: Alert and oriented. No acute distress when remaining still. Eyes: Conjunctivae and lids clear. ENT: No nasal congestion. Neck: Supple. Heart: RRR. Lungs: No respiratory distress. Good air movement. No rhonchi, wheezing, rales. Skin: Warm and dry. In the posterior aspect of the left lower leg, apple sized wound noted with spreading erythema/edema/calor/tenderness. Neuro: Alert and oriented X 3. Rectal: Remarkable for large amount of melena. I reviewed EMS notes. I reviewed all diagnostic test results: My interpretation of the chest x-ray is NAD. My review of the Ankle CT report is cellulitis. My review of the Abdomen/Pelvis CT report is NAD. My review of the Gallbladder US report is: Cholelithiasis. Blood tests remarkable for Hgb 6.9. UA showed leukocyte esterase, 13 RBC, 420 WBC, and 1+ bacteria. At this point, diagnoses include: Severe anemia GI bleed UTI Cellulitis of left lower leg Treatment here included: IVF Morphine 2 mg IV Zofran 4 mg IV Protonix 80 mg IV Pepcid 20 mg IV I discussed the case with Dr. Muhammad (GI) and Hospitalist. About the presentation and exam and diagnostics and treatments here. And need of further care in the hospital. Will accept the patient. Juan Miguel Llanos MD Patient data External records reviewed:: [facility] previous records (Reviewed prior ED records from 08/15/25. 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 Social determinants that could affect healthcare access:: none Patient has the following chronic illnesses:: Paralysis, Deep Vein Thrombosis, Hypertension, Chronic Obstructive Pulmonary Disease (COPD), Asthma, Hepatitis, Hemorrhoids, Obesity, Benign Prostatic Hyperplasia, Diabetes Mellitus Type 2, Anxiety How is presenting disease/condition affected by chronic disease/condition?: exacerbated by Evaluation data The following diagnostics were reviewed and interpreted by me:: lab results and radiology exam(s) Lab and/or radiology exams considered but not ordered:: None Interpretation Summary: I reviewed all diagnostic test results: My interpretation of the chest x-ray is NAD. My review of the Ankle CT report is cellulitis. My review of the Abdomen/Pelvis CT report is NAD. My review of the Gallbladder US report is: Cholelithiasis. Blood tests remarkable for Hgb 6.9. UA showed leukocyte esterase, 13 RBC, 420 WBC, and 1+ bacteria. Medications / Prescriptions Medications or Prescriptions considered but not ordered:: None Medication administrations:: Medication Administration History Discontinued Medications Acetaminophen (Acetaminophen 325 Mg Tablet) 650 mg PO Q6HR PRN PRN Reason: FEVER > 101 or pain 1-3 Stop: 09/22/25 03:45 Hydrocodone Bitart/Acetaminophen (Hydrocodone/Apap 5/325 Tablet) 1 tab PO Q4HR PRN PRN Reason: Pain (mod 4-6) Stop: 08/28/25 06:53 Last Admin: 08/25/25 05:08 Dose: 1 tab Documented By: Admin: 08/24/25 04:17 Dose: 1 tab Documented By: [email or web address] Admin: 08/23/25 09:45 Dose: 1 tab Documented By: NITISH Amlodipine Besylate (Amlodipine Besylate 5 Mg Tablet) 10 mg PO QDAY SHANNON Stop: 09/22/25 08:59 Last Admin: 08/25/25 08:11 Dose: 10 mg Documented By: SC Admin: 08/24/25 10:00 Dose: 10 mg Documented By: Admin: 08/23/25 09:46 Dose: 10 mg Documented By: NITISH Benzocaine (Benzocaine 20% (Hurricaine) [place] 1 Dose) 0 dose TOP X1 ONE Stop: 08/23/25 16:18 Benzocaine (Benzocaine 20% (Hurricaine) [place] 1 Dose) Confirm Administered Dose 1 dose TOP .STK-MED ONE Stop: 08/23/25 16:26 Bisacodyl (Bisacodyl 5 Mg Tabec) 5 mg PO QDAY PRN; Protocol PRN Reason: CONSTIPATION Stop: 09/24/25 12:00 Bisacodyl (Bisacodyl 5 Mg Tabec) 10 mg PO QDAY PRN; Protocol PRN Reason: CONSTIPATION Stop: 09/24/25 12:00 Last Admin: 08/25/25 12:35 Dose: 10 mg Documented By: SC Calcium Acetate (Calcium Acetate 667 Mg Tablet) 667 mg PO TIDWM [facility] Stop: 09/24/25 11:59 Last Admin: 08/25/25 17:42 Dose: Not Given Documented By: SC Non-Admin Reason: Patient Refused Admin: 08/25/25 14:31 Dose: Not Given Documented By: SC Non-Admin Reason: Patient Refused Carvedilol (Carvedilol 12.5 Mg Tablet) 12.5 mg PO BIDWM [facility] Stop: 09/24/25 17:29 Last Admin: 08/25/25 17:42 Dose: Not Given Documented By: SC Non-Admin Reason: Patient Refused Cyclobenzaprine HCl (Cyclobenzaprine 5 Mg Tablet) 10 mg PO BID PRN PRN Reason: Muscle Spasms or Muscle pain Stop: 09/22/25 03:39 Last Admin: 08/23/25 06:31 Dose: 10 mg Documented By: NJ Cyclobenzaprine HCl (Cyclobenzaprine 5 Mg Tablet) 10 mg PO X1 ONE Stop: 08/23/25 03:41 Last Admin: 08/23/25 05:41 Dose: Not Given Documented By: SE Non-Admin Reason: Patient Refused Dextrose (Dextrose 50%-Water Inj 50 Ml Syringe) 25 ml IV Q15MIN PRN PRN Reason: BG 50-70 responsive npo pt Stop: 09/22/25 04:03 Last Admin: 08/23/25 15:59 Dose: 25 ml Documented By: Admin: 08/23/25 12:31 Dose: 25 ml Documented By: DL Dextrose (Dextrose 50%-Water Inj 50 Ml Syringe) 50 ml IV Q15MIN PRN PRN Reason: BG <50 OR BG <70 & pt unresponsive Stop: 09/22/25 04:03 Diphenhydramine HCl (Diphenhydramine Inj 50 Mg/Ml Vial) 25 mg IVP PRNMRX1 PRN PRN Reason: MODERATE SEDATION Stop: 08/23/25 18:18 Diphenhydramine HCl (Diphenhydramine Inj 50 Mg/Ml Vial) Confirm Administered Dose 50 mg .ROUTE .STK-MED ONE Stop: 08/23/25 16:27 Famotidine (Famotidine Inj 10 Mg/Ml Vial 2 Ml) 20 mg IVP X1 ONE Stop: 08/23/25 00:30 Last Admin: 08/23/25 02:12 Dose: 20 mg Documented By: SF Fentanyl Citrate (Fentanyl Cit Inj 50 Mcg/Ml Amp 2ml) 50 mcg IVP Q2M PRN PRN Reason: MODERATE SEDATION Stop: 08/23/25 18:18 Fentanyl Citrate (Fentanyl Cit Inj 50 Mcg/Ml Amp 2ml) Confirm Administered Dose 100 mcg .ROUTE .STK-MED ONE Stop: 08/23/25 16:26 Gabapentin (Gabapentin 100 Mg Capsule) 300 mg PO TID SHANNON Stop: 09/22/25 05:59 Last Admin: 08/25/25 14:32 Dose: 300 mg Documented By: SC Admin: 08/25/25 06:02 Dose: 300 mg Documented By: Admin: 08/24/25 21:34 Dose: 300 mg Documented By: Admin: 08/24/25 13:22 Dose: 300 mg Documented By: Admin: 08/24/25 05:42 Dose: 300 mg Documented By: Admin: 08/23/25 21:44 Dose: 300 mg Documented By: Admin: 08/23/25 13:57 Dose: 300 mg Documented By: Admin: 08/23/25 06:48 Dose: 300 mg Documented By: Glucagon (Glucagon Inj 1 Mg Vial) 1 mg IM Q15MIN PRN PRN Reason: BG <70, and no IV access Sodium Chloride (Ns) 1,000 mls @ 999 mls/hr IV .Q1H1M ONE Stop: 08/22/25 23:44 Last Infusion: 08/23/25 00:11 Dose: Infused Documented By: Admin: 08/22/25 23:10 Dose: 999 mls/hr Documented By: ROSA Ceftriaxone Sodium/Dextrose (Rocephin/D5w 1gm Iv Premix) 1 gm in 50 mls @ 100 mls/hr IV QDAY SHANNON Stop: 08/30/25 03:44 Last Admin: 08/25/25 08:12 Dose: 100 mls/hr Documented By: SC Infusion: 08/24/25 10:30 Dose: Infused Documented By: Admin: 08/24/25 10:00 Dose: 100 mls/hr Documented By: VERNA Ceftriaxone Sodium/Dextrose (Rocephin/D5w 1gm Iv Premix) 1 gm in 50 mls @ 100 mls/hr IV X1 ONE Stop: 08/23/25 04:44 Last Infusion: 08/23/25 05:59 Dose: Infused Documented By: Admin: 08/23/25 05:33 Dose: 100 mls/hr Documented By: Doxycycline Hyclate 100 mg/ (Sodium Chloride) 100 mls @ 100 mls/hr IV BID SHANNON Stop: 08/30/25 04:14 Last Admin: 08/25/25 08:12 Dose: 100 mls/hr Documented By: SC Infusion: 08/24/25 22:33 Dose: Infused Documented By: SC Admin: 08/24/25 21:33 Dose: 100 mls/hr Documented By: Infusion: 08/24/25 10:59 Dose: Infused Documented By: Admin: 08/24/25 09:59 Dose: 100 mls/hr Documented By: Infusion: 08/23/25 22:44 Dose: Infused Documented By: Admin: 08/23/25 21:44 Dose: 100 mls/hr Documented By: [email or web address] Doxycycline Hyclate 100 mg/ (Sodium Chloride) 100 mls @ 100 mls/hr IV X1 ONE Stop: 08/23/25 05:29 Last Admin: 08/23/25 06:39 Dose: 100 mls/hr Documented By: Octreotide Acetate 1,000 mcg/ (Sodium Chloride) 102 mls @ 5.1 mls/hr IV .Q20H SHANNON; Protocol Stop: 08/28/25 12:29 Last Admin: 08/23/25 13:58 Dose: 50 mcg/hr, 5.1 mls/hr Documented By: NITISH Insulin Human Lispro (Insulin Lispro (Admelog) 1 Unit/0.01 Ml Unit) 0 unit SC Q6H SHANNON; Protocol Stop: 09/22/25 04:14 Last Admin: 08/23/25 05:37 Dose: Not Given Documented By: SE Non-Admin Reason: NPO Insulin Human Lispro (Insulin Lispro (Admelog) 1 Unit/0.01 Ml Unit) 0 unit SC Q6HR@0000,0600,1200,1800 SHANNON; Protocol Stop: 09/22/25 04:14 Last Admin: 08/25/25 00:00 Dose: Not Given Documented By: MP Non-Admin Reason: Per Protocol Admin: 08/24/25 18:40 Dose: Not Given Documented By: CS Non-Admin Reason: Per Protocol Admin: 08/24/25 12:00 Dose: Not Given Documented By: CS Non-Admin Reason: Per Protocol Admin: 08/24/25 06:00 Dose: Not Given Documented By: CINTIA Non-Admin Reason: Per Protocol Admin: 08/24/25 00:00 Dose: Not Given Documented By: CINTIA Non-Admin Reason: Per Protocol Comments: on sandostatin glucose 90 Admin: 08/23/25 17:56 Dose: Not Given Documented By: DL Non-Admin Reason: Per Protocol Admin: 08/23/25 12:34 Dose: Not Given Documented By: DL Non-Admin Reason: Per Protocol Insulin Human Lispro (Insulin Lispro (Admelog) 1 Unit/0.01 Ml Unit) 0 unit SC ACHS [facility]; Protocol Stop: 09/24/25 07:29 Last Admin: 08/25/25 17:11 Dose: Not Given Documented By: SC Non-Admin Reason: Patient Refused Admin: 08/25/25 12:34 Dose: Not Given Documented By: SC Non-Admin Reason: Per Protocol Admin: 08/25/25 07:50 Dose: Not Given Documented By: SC Non-Admin Reason: Per Protocol Methocarbamol (Methocarbamol 500 Mg Tablet) 500 mg PO TID [facility] Stop: 09/22/25 05:59 Last Admin: 08/25/25 14:32 Dose: 500 mg Documented By: SC Admin: 08/25/25 06:02 Dose: 500 mg Documented By: Admin: 08/24/25 21:34 Dose: 500 mg Documented By: Admin: 08/24/25 13:22 Dose: 500 mg Documented By: Admin: 08/24/25 05:43 Dose: 500 mg Documented By: Admin: 08/23/25 21:44 Dose: 500 mg Documented By: Admin: 08/23/25 13:57 Dose: 500 mg Documented By: Admin: 08/23/25 09:45 Dose: 500 mg Documented By: DL Metoclopramide HCl (Metoclopramide Inj 5 Mg/Ml Vial 2 Ml) 10 mg IVP X1 ONE; Protocol Stop: 08/25/25 11:50 Last Admin: 08/25/25 12:35 Dose: 10 mg Documented By: SC Midazolam HCl (Midazolam Inj 1 Mg/Ml Vial 2 Ml) 2 mg IVP Q2M PRN PRN Reason: Moderate Sedation Stop: 08/23/25 18:18 Midazolam HCl (Midazolam Inj 1 Mg/Ml Vial 2 Ml) Confirm Administered Dose 4 mg .ROUTE .STK-MED ONE Stop: 08/23/25 16:26 Morphine Sulfate (Morphine Sulf Inj 4 Mg/Ml Vial) 2 mg IV X1 ONE Stop: 08/22/25 22:45 Last Admin: 08/22/25 23:09 Dose: 2 mg Documented By: AC Morphine Sulfate (Morphine Sulf Inj 4 Mg/Ml Vial) 2 mg IVP Q4HR PRN PRN Reason: for severe 7-10 pain Stop: 08/28/25 06:53 Last Admin: 08/23/25 13:57 Dose: 2 mg Documented By: NIITSH Non-Formulary Medication (Linaclotide [Linzess]) 145 mcg PO QDAY SHANNON Stop: 09/24/25 09:14 Octreotide Acetate (Octreotide Acet Inj 50 Mcg/Ml Vial) 50 mcg IV X1 ONE Stop: 08/23/25 12:17 Last Admin: 08/23/25 13:58 Dose: 50 mcg Documented By: NITISH Ondansetron HCl (Ondansetron Inj 2 Mg/Ml Inj 2 Ml) 4 mg IVP X1 ONE; Protocol Stop: 08/22/25 22:45 Last Admin: 08/22/25 23:09 Dose: 4 mg Documented By: AC Ondansetron HCl (Ondansetron Inj 2 Mg/Ml Inj 2 Ml) 4 mg IVP Q6H PRN; Protocol PRN Reason: NAUSEA OR VOMITING Stop: 09/22/25 03:25 Last Admin: 08/25/25 08:11 Dose: 4 mg Documented By: SC Admin: 08/23/25 14:07 Dose: 4 mg Documented By: NITISH Pantoprazole Sodium (Pantoprazole Inj 40 Mg Vial) 80 mg IVP X1 ONE Stop: 08/23/25 00:30 Last Admin: 08/23/25 02:06 Dose: 80 mg Documented By: BINU Pantoprazole Sodium (Pantoprazole Inj 40 Mg Vial) 40 mg IVP BID [facility] Stop: 09/22/25 08:59 Last Admin: 08/23/25 21:45 Dose: 40 mg Documented By: Admin: 08/23/25 09:45 Dose: 40 mg Documented By: NITISH Pantoprazole Sodium (Pantoprazole Inj 40 Mg Vial) 40 mg IVP BID [facility] Stop: 09/23/25 08:59 Last Admin: 08/25/25 08:11 Dose: 40 mg Documented By: SC Admin: 08/24/25 21:33 Dose: 40 mg Documented By: Admin: 08/24/25 10:00 Dose: 40 mg Documented By: VERNA Sennosides (Senna/Docusate Sod 1 Tab Tablet) 1 tab PO QDAY PRN; Protocol PRN Reason: CONSTIPATION Stop: 09/22/25 03:40 Sennosides (Senna/Docusate Sod 1 Tab Tablet) 1 tab PO QDAY SHANNON; Protocol Stop: 09/23/25 08:59 Last Admin: 08/25/25 08:10 Dose: 1 tab Documented By: SC Admin: 08/24/25 10:00 Dose: 1 tab Documented By: VERNA Silver Sulfadiazine (Silver Sulfadiazine Cr 1% 25 Gm Tube) 0 gm TOP BID [facility] Stop: 08/30/25 10:44 Last Admin: 08/24/25 21:43 Dose: 1 applicatio Documented By: Admin: 08/23/25 21:45 Dose: 1 applicatio Documented By: Admin: 08/23/25 13:57 Dose: 1 applicatio Documented By: NITISH Sodium Phosphate (Sodium Phos,[place]-Dibasic 133 Ml (Fleet) Enema Btl) 133 ml RC Q72H PRN PRN Reason: Constipation Last Admin: 08/25/25 14:37 Dose: 133 ml Documented By: SC Sucralfate (Sucralfate Susp 1 Gm/10 Ml Udc) 1 gm PO ACHS [facility] Stop: 09/23/25 11:29 Last Admin: 08/25/25 17:12 Dose: Not Given Documented By: SC Non-Admin Reason: Patient Refused Admin: 08/25/25 14:30 Dose: Not Given Documented By: SC Non-Admin Reason: Patient Refused Admin: 08/25/25 08:13 Dose: 1 gm Documented By: SC Admin: 08/24/25 21:33 Dose: 1 gm Documented By: Admin: 08/24/25 17:40 Dose: Not Given Documented By: CS Non-Admin Reason: Patient Refused Admin: 08/24/25 12:20 Dose: 1 gm Documented By: CS Tamsulosin HCl (Tamsulosin Hcl 0.4 Mg Capsule) 0.4 mg PO QDAY [facility] Stop: 09/22/25 08:59 Last Admin: 08/25/25 08:11 Dose: 0.4 mg Documented By: SC Admin: 08/24/25 10:00 Dose: 0.4 mg Documented By: Admin: 08/23/25 09:45 Dose: 0.4 mg Documented By: DL Treatment here included: IVF Morphine 2 mg IV Zofran 4 mg IV Protonix 80 mg IV Pepcid 20 mg IV Consultations Consultation(s) initiated? (list below): Yes Consultation #1 (Physician, Specialty, Details): I discussed the case with Dr. Muhammad (GI) and Hospitalist. About the presentation and exam and diagnostics and treatments here. And need of further care in the hospital. Will accept the patient. Diagnosis Wound Differential Diagnosis: laceration, abscess, abrasion, avulsion of skin and other (Cellulitis, Sepsis, GI Bleed, UTI, Pneumonia) Most likely diagnosis given after review of the tests above:: Severe anemia GI bleed UTI (urinary tract infection) Cellulitis of left leg Admission Indicated Admission indicated?: indicated Explain why admission is indicated or not indicated:: Severe anemia GI bleed UTI (urinary tract infection) Cellulitis of left leg Admission Request Was there a request for admission?: Yes Admission Attestation Admission request attestation: Discussed case with Hospitalist service regarding admission. Discussed patients ED course, exam findings, labs, and radiology results. Agreed to accept the patient for admission. Disposition Plan Disposition Plan: Admit Discharge Plan Plan Patient Disposition: Admit Acute Care w/in Hospital Patient condition on transfer: Stable and Benefits outweigh risks Problem List Clinical Impression: Severe anemia, GI bleed, UTI (urinary tract infection), Cellulitis of left leg
--- NOTE | 2025-08-22 22:46 | XR_ITS ---
EXAMINATION: AP chest single view TECHNIQUE: AP portable semiupright chest single view Date and time: August 22, 2025, 10:53 p.m., comparison August 03, 2025 INDICATION: Shortness of breath today. FINDINGS: Bilateral parenchymal disease again noted Please see the CT chest report September 09, 2024 Normal heart size Severe osteopenia IMPRESSION:: Extensive bilateral parenchymal disease again noted, please see the CT chest report September 09, 2024
--- NOTE | 2025-08-22 22:46 | XR_ITS ---
Examination: CT left ankle with intravenous contrast, 2-D sagittal reconstructions. 2-D coronal reconstructions. 3-D reconstructions. Date and time of exam: August 23, 2025, 0112 hours INDICATIONS: Nonhealing wound with redness erythema and pain involving left ankle today CTDI: vol (mGy): 4.48 DLP: (mGycm): 126 Technique: Multiple 1.25 mm axial sections of the left ankle post intravenous administration 30 cc [id number] have been obtained. 2-D sagittal and coronal reconstructions have been obtained. 3-D reconstructions have been obtained. Low dose protocols were performed. One or more of the following dose reduction techniques were used; automated exposure control, adjustment of the mA and/or KV according to patient size, use of iterative reconstruction technique. Findings: Soft tissue defect along the posterior lateral lower leg adjacent to the fibula No fluid-filled abscess There is mild fluid along the lateral and anterior aspect of the ankle There is severe osteopenia No roberto cortical bone destruction No foreign body IMPRESSION: Soft tissue defect along the posterolateral lower leg adjacent to the fibular No fluid-filled abscess Severe osteopenia No roberto cortical bone destruction MRI ankle without contrast follow-up would best assess for soft tissue abscess, necrotizing fasciitis, osteomyelitis
--- NOTE | 2025-08-22 22:46 | XR_ITS ---
Examination: CT abdomen with intravenous contrast CT pelvis with intravenous contrast 2-D coronal reconstructions 2-D sagittal reconstructions Date and time of exam: August 23, 2025, 0057 hours INDICATIONS: Onset severe abdominal pain today COMPARISON: August 18, 2015. CTDI: vol (mGy) 13.2 DLP: (mGycm) 829 Technique: Multiple axial sections of the abdomen and pelvis have been obtained. 64 slice high-resolution scanner used. 3 mm axial sections have been obtained, post intravenous injection 30 cc [id number] 2-D sagittal, coronal reconstructions obtained. Low dose protocols were performed. One or more of the following dose reduction techniques were used; automated exposure control, adjustment of the mA and/or KV according to patient size, use of iterative reconstruction technique. Findings: Atelectasis left lower lobe, small right pleural effusion Mild areas of calcification involving the left lung base pleura Cirrhosis, liver nodular in contour Mild splenomegaly Cholelithiasis No pancreatic mass Mild renal scarring Perinephric fat stranding Abdominal aortic calcification no aneurysmal dilatation No bowel obstruction Normal appendix Large amounts of stool in the rectosigmoid with thickening of the rectal wall and perirectal inflammatory change Diffuse mild urinary bladder wall thickening Prominent osteopenia IMPRESSION: Cirrhosis Mild splenomegaly Cholelithiasis Perinephric stranding, which may relate to urinary tract infection. Normal appendix Cystitis pattern Large amounts of stool in the rectosigmoid with rectal wall thickening and perirectal inflammatory change most consistent with proctitis but clinical correlation advised
[2025-08-22] MEDS: MORPHINE SULF INJ 4 MG/ML VIAL 2 MG IV (23:09)
[2025-08-22] MEDS: ONDANSETRON INJ 2 MG/ML INJ 2 ML 4 MG IVP (23:09)
[2025-08-22] MEDS: SODIUM CHLORIDE 0.9% 1000 ML 1,000 ML 999 ML IV (23:10)
[2025-08-22 23:25] LABS: Base Excess, Venous 1 (-3-3); Eosinophils % (Auto) 3 % (0-10); Lactate (Lactic Acid) 0.4 mMol/L (0.4-2.0); Monocytes % (Auto) 10 % (0-12); Nucleated Red Blood Cell # 0.00 Thou/mm3 (0.00-0.00); Nucleated Red Blood Cell % 0 /100 WBC (0); O2 Saturation, Venous 85 % (96-97); PCO2, Venous 37 mmHg (36-56); PO2, Venous 43 mmHg (15-58); pH, Venous 7.44 (7.33-7.66)
[2025-08-22 23:31] LABS: Beta Hydroxybutyrate 0.4 mmol/L (<0.6)
[2025-08-22 23:53] LABS: Basophils # (Auto) 0.1 Thou/mm3 (0.0-0.2); Basophils % (Auto) 1 % (0-2.5); Eosinophils # (Auto) 0.2 Thou/mm3 (0.0-0.5); Hematocrit 22.2 % (41.0-53.0); Immature Granulocytes Auto 0.03 Thou/mm3 (0.00-0.00); Lymphocytes # (Auto) 1.7 Thou/mm3 (1.0-4.8); Lymphocytes % (Auto) 18 % (10-50); Mean Corpuscular HGB Conc 31.1 g/dl (31.0-37.0); Mean Corpuscular Hemoglobin 25.6 pg (25.0-35.0); Mean Corpuscular Volume 82 fL (80-100); Monocytes # (Auto) 0.9 Thou/mm3 (0.0-0.8); Neutrophils # (Auto) 6.2 Thou/mm3 (1.8-7.7); Neutrophils % (Auto) 68 % (37-80); Platelet Count 166 Thou/mm3 (140-440); RDW Standard Deviation 41.8 fL (35.1-43.9); Red Blood Count 2.70 Miln/mm3 (4.50-5.90); White Blood Count 9.1 Thou/mm3 (3.8-10.6)
[2025-08-22 23:56] LABS: Hemoglobin 6.9 g/dL (13.5-16.0)
[2025-08-22 23:58] LABS: Alanine Aminotransferase 9 U/L (10-49); Albumin, Serum 3.4 gm/dL (3.5-5.0); Albumin/Globulin Ratio 1.0 (1.2-2.2); Alkaline Phosphatase 92 U/L (46-116); Amylase 45 U/L (30-118); Anion Gap 10 (7-16); Aspartate Amino Transferase 16 U/L (0-34); BUN/Creatinine Ratio 14 Ratio (12-20); Bilirubin,Direct < 0.1 mg/dL (0.0-0.3); Bilirubin,Total 0.2 mg/dL (0.3-1.2); Blood Urea Nitrogen 21 mg/dL (9-23); C-Reactive Protein 2.2 mg/dL (0.0-0.9); Calcium 8.0 mg/dL (8.3-10.6); Calcium (Corrected) 8.5 mg/dL (8.5-10.1); Carbon Dioxide 24.4 mMol/L (20.0-31.0); Chloride 111 mMol/L (98-107); Creatinine (Component) 1.5 mg/dL (0.6-1.3); Globulin 3.3 gm/dL (2.3-3.5); Glucose 102 mg/dL (74-106); Lipase 28 U/L (12-53); Magnesium 1.6 mg/dL (1.6-2.6); Osmolality,Calculated 291 (275-295); Potassium 4.0 mMol/L (3.4-5.1); Procalcitonin 0.15 ng/ml (0.0-0.49); Sodium 145 mMol/L (136-145); Thyroid Stimulating Hormone 1.69 uIU/mL (0.55-4.78); Total Protein 6.7 gm/dL (5.7-8.2); Uric Acid 7.3 mg/dL (3.7-9.2); eGFR 56 See Note
[2025-08-23] VITALS (22 sets, daily range): BP systolic 112–159; BP diastolic 77–100; PULSE 71–88; RESP 12–20; TEMP 36.1–36.8; O2SAT 90–100; BMI 28.7; BMI 28.5
[2025-08-23 00:06] LABS: Sed Rate (ESR) 42 mm/hr (0-20)
[2025-08-23 00:19] LABS: Glucose Estimated Average 123 mg/dL (80-131); Hemoglobin A1C 5.9 % Hgb (4.8-6.0)
[2025-08-23 00:23] LABS: B-Type Natriuretic Peptide 23 pg/mL (0-100)
--- NOTE | 2025-08-23 01:15 | XR_ITS ---
Examination: Abdomen sonogram, Limited Date and time of exam: August 23, 2025, 0136 hours INDICATIONS: Onset abdominal pain today Technique: Real-time orr scale transabdominal sonographic images of the upper abdomen obtained. Findings: Cholelithiasis, 16 mm gallstone Gallbladder wall 0.38 cm Pancreas obscured by bowel gas Liver 14.5 cm fatty infiltration Normal hepatopetal portal venous flow Patent IVC IMPRESSION: Cholelithiasis Thickening of the gallbladder wall, consider HIDA scan or MRCP follow-up
[2025-08-23 01:16] LABS: OBS QC OK? Yes; Occult Blood, Stool Positive (Negative)
[2025-08-23] MEDS: FAMOTIDINE INJ 10 MG/ML VIAL 2 ML 20 MG IVP (02:12)
--- NOTE | 2025-08-23 02:32 | PRELIM_ITS ---
CT left ankle with intravenous contrast (axial sections with sagittal and coronal reformats) August 23, 2025 0112 hours Clinical History: Wound with erythema/edema/calor/pain Comparison: None Findings: The bones are severely osteopenic. No fracture or dislocation is seen. There are no lytic, sclerotic lesion or periosteal reaction. There is no joint effusion. The ankle mortise is intact. There is soft tissue wound noted along the left posterolateral aspect of the left lower leg. Diffuse fat stranding is seen in the subcutaneous soft tissues of the left leg extending to the left foot, consistent with cellulitis. Fat stranding is also noted in the intermuscular planes in the leg; possibility of necrotizing fascitis cannot be excluded. No evidence of loculated abscess or soft tissue air. Extensive vascular calcifications are seen. Impression: 1. Soft tissue wound noted along the left posterolateral aspect of the left lower leg. 2. Diffuse fat stranding in the subcutaneous soft tissues of the left leg extending to the left foot, consistent with cellulitis. 3. Fat stranding also noted in the intermuscular planes in the leg; possibility of necrotizing fascitis cannot be excluded. No evidence of loculated abscess or soft tissue air. 4. No CT features to suggest osteomyelitis. 5. Other findings as described above. Suggest clinical correlation and follow up accordingly. Report Electronically Signed By: Scott Yuan 08/23/2025 2:32:26 AM [EST]
[2025-08-23 02:35] LABS: Collection Type, Urine Clean Catch
--- NOTE | 2025-08-23 02:40 | PRELIM_ITS ---
CT scan of the abdomen and pelvis without intravenous contrast (axial sections with sagittal and coronal reformats) August 23, 2025 0057 hours Clinical History: Abdominal pain Comparison: None Findings: The evaluation is limited due to suboptimal bolus of contrast. The pancreas, spleen and adrenals are unremarkable. The liver demonstrates cirrhotic morphology. There is 1.8 cm gallbladder calculus without CT features to suggest acute cholecystitis. Nonspecific perinephric fat stranding is noted bilaterally. There is contrast in the renal collecting systems and ureters. There is no hydroureteronephrosis. No evidence of bowel obstruction. The appendix is within normal limits (images [id number]). There is moderate amount of fecal material in the colon with rectal fecal impaction with stercoral proctitis. There is no mesenteric or retroperitoneal adenopathy. The abdominal aorta demonstrates atheromatous calcification without evidence of aneurysm. The urinary bladder is partially distended with apparent wall thickening. There is mild prostatomegaly. There is no free fluid or free air. The bones are osteopenic. Degenerative changes are identified in the spine. There is a small right pleural effusion. Calcified pleural plaques are seen at the left lung base. Bibasilar atelectasis/scarring is seen. Please note that evaluation of soft tissue/vascular structures and bowel loops is limited due to absence of IV and oral contrast. Impression: 1. Findings consistent with rectal fecal impaction and stercoral proctitis. No evidence of bowel obstruction. 2. Cholelithiasis without evidence of acute cholecystitis. 3. Cirrhosis of liver. 4. Subtle nonspecific bilateral perinephric fat stranding, which may be due to intravenous infusion versus pyelonephritis. 5. Partially distended urinary bladder with mild wall thickening; possibility of cystitis or bladder outlet obstruction cannot be excluded. 6. Other findings as described above. Suggest clinical correlation and follow up accordingly. Report Electronically Signed By: Scott Yuan 08/23/2025 2:39:10 AM [EST]
[2025-08-23 02:44] LABS: Bacteria,Urine 1+; Bilirubin,Urine Negative (Negative); Blood,Urine 2+ (Negative); Budding Yeast,Urine Present; Clarity,Urine Turbid (Clear/Hazy); Color,Urine Yellow (Lt Yel-Yel); Glucose, Urine Negative (Negative); Ketones,Urine Negative (Negative); Leukocyte Esterase,Urine Positive (Negative); Nitrite,Urine Negative (Negative); PH,Urine 6.0 (5.0-7.0); Protein,Urine 2+ (Neg - Trace); RBC,Urine 13 /hpf (0-3); Specific Gravity,Urine 1.021 (1.001-1.035); Squamous Epithelial Cell,Urine 2 /hpf (0-5); Urobilinogen,Urine Negative mg/dL (0.0-1.0); WBC,Urine 420 /hpf (0-5)
[2025-08-23 02:45] LABS: Culture Indicated,Urine Yes
--- NOTE | 2025-08-23 02:55 | PRELIM_ITS ---
Gallbladder ultrasound. August 23, 2025 0136 hours Clinical history: RUQ tenderness Comparison: CT abdomen pelvis performed on the same day. Findings: Limited evaluation due to excessive bowel gas artifact. The visualized liver demonstrates heterogeneous echogenicity without mass or ductal dilatation. The main portal vein demonstrates hepatopetal flow. There is 1.6 cm gallbladder calculus with wall thickness of 3.8 mm. There is no pericholecystic fluid. The common duct is normal in caliber at 5 mm. No free fluid is demonstrated on the submitted images. The pancreas is obscured by bowel gas artifact. IVC is patent to the extent demonstrated. Impression: Cholelithiasis with mild wall thickening and without pericholecystic fluid. While this may be due to hepatic parenchymal disease; possibility of acute cholecystitis cannot be excluded In the appropriate clinical setting. Suggest follow-up with HIDA scan, if clinically indicated. Discussion Details: Results verbally communicated to : Dr. Llanos at 02:40 AM 08/23/2025 Report Electronically Signed By: Scott Yuan 08/23/2025 2:54:18 AM [EST]
--- NOTE | 2025-08-23 03:46 | ESHP_ITS ---
Documentation for date of: 08/23/25 HPI History of Present Illness Chief complaint: Left leg wound History of present illness: This patient is a 49-year-old male with history of CVA (residual left-sided weakness), CKD, type 2 diabetes mellitus, hypertension, constipation, COPD (on 2 L home oxygen) and DVT who presented to [facility] ED on 08/22 for a left leg wound. Patient was admitted for management of GI bleed. The patient initially came in because he had a wound that was estimated to be about 2 cm x 4 cm on his left martinez which was bothering him due to the pain that started about 2 weeks ago. The patient states that he obtained this wound after sleeping on some bed obtained in [place] without any sheets. Of note, the patient has mostly loss mobility on his left side due to a history of CVA. 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 In the ED, the patient was found to have a hemoglobin of 6.9, which is significantly decreased from a hemoglobin of 9.5 back on 08/15/2025. Additionally, patient was found to have FOBT positive in the ED and after an enema administration due to the patient having constipation, and so the patient had melena as well. The patient does endorse having dark tarry stools for about a month now, however he did notice that he had an episode of bright red blood in his stools about a week ago. The patient states that about 6 months ago, he was diagnosed with a DVT, and so he was put on Xarelto for management of this condition. The patient states that he did have a colonoscopy about a week ago at an outside facility, however he has yet to receive the results of this colonoscopy as his PCP is currently on vacation. Patient endorses chills and abdominal pain. Patient denies any fevers, headache, changes in vision, shortness of breath, chest pain, and dysuria. ED course: Initial vitals significant for blood pressure of 147/75 Initial labs significant for hemoglobin of 6.9, ESR 42, creatinine 1.5, eGFR 56, CRP 2.2, and UA positive for 2+ protein, 2+ blood, leukocyte esterase positive, 13 RBC, 420 WBC, 1+ urine bacteria, and urine yeast. FOBT positive CT left ankle with contrast on 08/23 shows soft tissue wound on the left posterior lateral aspect of the left lower leg, diffuse fat stranding in the subcutaneous soft tissue of the left leg consistent with cellulitis CT abdomen/pelvis without contrast on 08/23 shows rectal fecal impaction and stercoral proctitis, cholelithiasis without acute cholecystitis, cirrhosis of the liver, nonspecific bilateral perinephric fat stranding, and partially distended urinary bladder with mild wall thickening Gallbladder ultrasound on 08/23 shows cholelithiasis with mild wall thickening and without pericholecystic fluid ED gave Zofran, morphine, 1 L NS, 80 mg Protonix, and famotidine Past Surgical History: Patient denies Current Medication(s): Lactulose 10 g twice daily with additional 20 g daily as needed for constipation Docusate to 50 mg twice daily as needed for constipation Linzess 145 mcg daily 30 minutes before first meal Tamsulosin 0.4 mg daily Coreg 12.5 mg twice daily with meals Methocarbamol 500 mg 3 times daily Amlodipine 10 mg daily Calcium acetate 667 mg 3 times daily Gabapentin 100 mg 3 times daily Xarelto 20 mg daily Allergies (w/ Reactions): NKDA Family History: Father side of family has history of blood clots and mom side of the family has history of diabetes Alcohol Intake: Patient denies Tobacco/Vape Use: Patient used to smoke 2 pack of cigarettes daily for at least 15 years, denies smoking now Other Drug Use: Everything since his stroke back in 2019 Recent Travel History: Patient denies Review of Systems Review of Systems Systems Reviewed: All systems reviewed, normal except as documented Exam Vital Signs Temp Pulse Resp BP Pulse Ox O2 Del Method O2 Flow Rate 97.7 F 78 16 129/96 H 95 Nasal Cannula 2 08/23/25 03:29 08/23/25 03:29 08/23/25 03:29 08/23/25 03:29 08/23/25 03:29 08/23/25 01:21 08/23/25 03:29 Narrative Exam Physical Exam: General: Alert, no acute distress. Skin: Warm, dry, intact. Head: Normocephalic, atraumatic. Eye: Normal conjunctiva, PERRL. Throat: Oral mucosa dry. No obvious lesions in oropharynx. Cardiovascular: Regular rate and rhythm, no murmur, +S1/S2. Respiratory: Lungs are clear to auscultation, respirations unlabored, no crackles, no wheezing. Gastrointestinal: Soft, diffusely tender to light touch, non-distended. No guarding or rebound tenderness. Extremities: LLE enlarged and tender to touch compared to right, 1+ pitting edema, no cyanosis, no clubbing. Estimated 2 cm x 4 cm oval wound on left martinez laterally that contains red tissue, no drainage, and is tender to touch. Neuro: No focal deficits observed. Conversant, moving all extremities. No overt cerebellar signs/incoordination. Psychiatric: Cooperative, appropriate affect. Results: Labs 08/23/25 05:50 08/23/25 05:50 Labs: Short CBC 08/22/25 Range/Units 23:10 WBC 9.1 (3.8-10.6) Thou/mm3 Hgb 6.9 L* (13.5-16.0) g/dL Hct 22.2 L (41.0-53.0) % Plt Count 166 D (140-440) Thou/mm3 BMP 08/22/25 23:10 Sodium 145 Potassium 4.0 Chloride 111 H Carbon Dioxide 24.4 BUN 21 Creatinine 1.5 H Glucose 102 Calcium 8.0 L Liver Function 08/22/25 Range/Units 23:10 Total Bilirubin 0.2 L (0.3-1.2) mg/dL Direct Bilirubin < 0.1 (0.0-0.3) mg/dL AST 16 (0-34) U/L ALT 9 L (10-49) U/L Alkaline Phosphatase 92 (46-116) U/L Albumin 3.4 L (3.5-5.0) gm/dL Urine 08/23/25 Range/Units 02:31 Urine Color Yellow (Lt Yel-Yel) Urine Clarity Turbid A (Clear/Hazy) Urine pH 6.0 (5.0-7.0) Ur Specific [place] 1.021 (1.001-1.035) Urine Protein 2+ A (Neg - Trace) Urine Glucose (UA) Negative (Negative) ABG Interpretation ABG results: 08/22/25 23:10 VBG pH 7.44 VBG pCO2 37 VBG pO2 43 VBG Base Excess 1 Quality Measures Quality Measures VTE prophylaxis Medications Home Medications and Allergies Home Medications ?Medication ?Instructions ?Recorded ?Confirmed ?Type atorvastatin 40 mg tablet 40 mg PO HS 01/23/20 4 History gabapentin 300 mg capsule 300 mg PO TID 01/23/2002/21 History hydralazine 25 mg tablet 25 mg PO HS 01/23/20 4 History insulin glargine 100 unit/mL (3 9 unit subcut HS 06/0702/22/24 History mL) subcutaneous pen (Basaglar KwikPen U-100 Insulin) amlodipine 10 mg tablet 10 mg PO QDAY 04/30/2102/21 History carvedilol 12.5 mg tablet 12.5 mg PO BID 04/30/2101/30 History acetaminophen 325 mg tablet 650 mg PO Q6HR PRN pain 02/22/24 History (Tylenol) bisacodyl 10 mg rectal suppository 10 mg NE PRN PRN Co nstipation 01/09/24 02/22/24 History (Dulcolax (bisacodyl)) docusate sodium 250 mg capsule 250 mg PO BID 01/09/24 02/22/24 History ferrous sulfate 325 mg (65 mg 325 mg PO QDAY 01/09/24 02/22/24 History iron) tablet fluticasone propionate 50 1 spray intranasal Q24H PRN 01/09/24 02/22/24 History mcg/actuation nasal Allergic Symptoms spray,suspension glucagon 1 mg injection kit 1 mg Q15MIN PRN Hypoglycem ia 01/09/24 02/22/24 History insulin lispro 100 unit/mL 16 unit subcut QPM 01/09/24 02/22/24 History subcutaneous solution lactulose 10 gram/15 mL oral 30 ml PO Q8HR PRN Constip ation 01/09/24 02/22/24 History solution magnesium hydroxide 400 mg/5 mL 30 ml PO Q72H PRN cons tipation 01/09/24 02/22/24 History oral suspension (Milk of Magnesia) sodium phosphates 19 gram-7 118 ml NE Q72H PRN Constip ation 01/09/24 02/22/24 History gram/118 mL enema (Fleet Enema) triamcinolone acetonide 0.1 % 1 applic topical Q12HR P RN Eczema 01/09/24 02/22/24 History topical cream guaifenesin 100 mg/5 mL oral liquid 200 mg PO Q6HR PRN Cough 02/22/24 History ipratropium bromide 0.02 % 2.5 ml inhalation Q4HR PRN 02/22/24 02/22/24 History solution for inhalation Shortness Of Breath ondansetron HCl 4 mg tablet 4 mg PO [id number] PRN Nausea And 02/22/24 02/22/24 History Vomiting rivaroxaban 15 mg tablet (Xarelto) 15 mg PO BID 02/22/24 History rivaroxaban 20 mg tablet (Xarelto) 20 mg PO QDAY 02/2102/22/24 History sennosides 8.6 mg tablet (senna) 8.6 mg PO QDAY 02/22/24 History tramadol 100 mg tablet 100 mg PO Q8HR PRN Pain 01/3002/22/24 History Allergies Allergy/AdvReac Type Severity Reaction Status Date / Time No Known Allergies Allergy Verified 02/22/24 05:30 Visit Medications Amlodipine Besylate (Amlodipine Besylate 5 Mg Tablet) 10 mg PO QDAY [facility] Stop: 09/22/25 08:59 Cyclobenzaprine HCl (Cyclobenzaprine 5 Mg Tablet) 10 mg PO BID PRN PRN Reason: Muscle Spasms or Muscle pain Stop: 09/22/25 03:39 Cyclobenzaprine HCl (Cyclobenzaprine 5 Mg Tablet) 10 mg PO X1 ONE Stop: 08/23/25 03:41 Gabapentin (Gabapentin 100 Mg Capsule) 300 mg PO TID [facility] Stop: 09/22/25 05:59 Ceftriaxone Sodium/Dextrose (Rocephin/D5w 1gm Iv Premix) 1 gm in 50 mls @ 100 mls/hr IV QDAY [facility] Stop: 08/30/25 03:44 Methocarbamol (Methocarbamol 500 Mg Tablet) 500 mg PO TID [facility] Stop: 09/22/25 05:59 Ondansetron HCl (Ondansetron Inj 2 Mg/Ml Inj 2 Ml) 4 mg IVP Q6H PRN; Protocol PRN Reason: NAUSEA OR VOMITING Stop: 09/22/25 03:25 Pantoprazole Sodium (Pantoprazole Inj 40 Mg Vial) 40 mg IVP BID [facility] Stop: 09/22/25 08:59 Sennosides (Senna/Docusate Sod 1 Tab Tablet) 1 tab PO QDAY PRN; Protocol PRN Reason: CONSTIPATION Stop: 09/22/25 03:40 Tamsulosin HCl (Tamsulosin Hcl 0.4 Mg Capsule) 0.4 mg PO QDAY [facility] Stop: 09/22/25 08:59 Discontinued Medications Famotidine (Famotidine Inj 10 Mg/Ml Vial 2 Ml) 20 mg IVP X1 ONE Stop: 08/23/25 00:30 Last Admin: 08/23/25 02:12 Dose: 20 mg Sodium Chloride (Ns) 1,000 mls @ 999 mls/hr IV .Q1H1M ONE Stop: 08/22/25 23:44 Last Infusion: 08/23/25 00:11 Dose: Infused Morphine Sulfate (Morphine Sulf Inj 4 Mg/Ml Vial) 2 mg IV X1 ONE Stop: 08/22/25 22:45 Last Admin: 08/22/25 23:09 Dose: 2 mg Ondansetron HCl (Ondansetron Inj 2 Mg/Ml Inj 2 Ml) 4 mg IVP X1 ONE; Protocol Stop: 08/22/25 22:45 Last Admin: 08/22/25 23:09 Dose: 4 mg Pantoprazole Sodium (Pantoprazole Inj 40 Mg Vial) 80 mg IVP X1 ONE Stop: 08/23/25 00:30 Last Admin: 08/23/25 02:06 Dose: 80 mg Assessment & Plan Plan This patient is a 49-year-old male with history of CVA (residual left-sided weakness), CKD, type 2 diabetes mellitus, hypertension, constipation, COPD (on 2 L home oxygen) and DVT who presented to [facility] ED on 08/22 for a left leg wound. Patient was admitted for management of GI bleed. #GI bleed #Melena Patient has been taking Xarelto daily for about 6 months ever since he had a DVT around that time. Since about 1 month ago, the patient noticed that he has been having increasingly dark, tarry stools. Initially, patient was noted to have 1 episode of bright red blood in his stool about a week ago. Patient was found to have a hemoglobin of 6.9 on admission, likely secondary to an upper GI bleed that is worsened by his Xarelto intake. Patient's last colonoscopy was about a week ago, however he does not know the results of the colonoscopy as his PCP has been away recently. The patient does not recall any endoscopies in his past. Diagnostic: Hemoglobin on admission 6.9 FOBT positive in ED Treatment: GI consulted, appreciate recommendations Protonix 40 mg twice daily Patient made n.p.o. Patient received 1 unit of PRBC, will continue to transfuse if hemoglobin is less than 7 per protocol Continue to monitor with CBC daily #UTI, asymptomatic #Left lower extremity cellulitis Patient noted to have a dirty UA, however he does not complain of any signs of dysuria, frequency, incontinence etc. Additionally, patient was found to have signs of cellulitis on left lower extremity on CT scan. Left lower extremity does look enlarged, however no erythema or warmth was noted. Given that the patient does have elevations of ESR and CRP, will consider management with antibiotics. Diagnostic: UA positive for 2+ protein, 2+ blood, leukocyte esterase positive, 13 RBC, 420 WBC, 1+ urine bacteria, and urine yeast CT left ankle with contrast on 08/23 shows soft tissue wound on the left posterior lateral aspect of the left lower leg, diffuse fat stranding in the subcutaneous soft tissue of the left leg consistent with cellulitis LRINEC score 6 points Urine culture collected on 08/23, pending Treatment: Doxycycline 100 mg twice daily (08/23?) Ceftriaxone 1 g daily (08/23?) #Well-controlled insulin-dependent type 2 diabetes mellitus Patient noted to have well-controlled insulin-dependent type 2 diabetes mellitus. Hemoglobin A1c on admission noted to be 5.9%. Treatment: Sliding scale insulin Bedside glucose checks every 6 hours (will change to ACHS once patient is no longer n.p.o.) #History of CKD stage IIIa Patient noted to have a history of CKD stage IIIa. Creatinine on admission 1.5 and eGFR 56 on admission, stable and not significantly changed compared to previous labs. Treatment: Patient to follow-up outpatient Renally dose medications Avoid nephrotoxic drugs #History of COPD, on 2 L home oxygen Patient states that he has a history of COPD and uses 2 L of oxygen at home 23/03. Diagnostic: Chest x-ray on 08/22 shows bilateral parenchymal disease Treatment: Oxygen delivery via nasal cannula as needed If patient has flare, consider giving DuoNebs #Liver cirrhosis #Cholelithiasis As noted on CT scan and ultrasound gallbladder. Patient does have diffuse abdominal pain that is nonspecific. Patient does not endorse a significant drinking history, so cirrhosis is possibly secondary to MASLD. Low suspicion for cholecystitis given nonspecific findings, negative CT findings, and no leukocytosis. Diagnostic: CT abdomen/pelvis without contrast on 08/23 shows rectal fecal impaction and stercoral proctitis, cholelithiasis without acute cholecystitis, cirrhosis of the liver, nonspecific bilateral perinephric fat stranding, and partially distended urinary bladder with mild wall thickening Gallbladder ultrasound on 08/23 shows cholelithiasis with mild wall thickening and without pericholecystic fluid Treatment: Patient to follow-up outpatient Consider resuming home lactulose if patient becomes encephalopathic, however the patient does not endorse a specific history of this condition #History of hypertension #History of muscle cramping Patient noted to have a history of hypertension and muscle cramping. Resumed some of his home medications. Patient states that opiate medications often do not really help his muscle cramps. Muscle cramps are likely secondary to inactivity from left-sided stroke. The patient also notes that he recently stopped having physical therapy about a month ago, and developed significant muscle cramping about 3 weeks ago, however he needs his PCP to renew the physical therapy order. Treatment: Resumed home amlodipine 10 mg daily Will hold off on carvedilol 12.5 mg twice daily until resolution of bleeding Resumed home methocarbamol 500 mg 3 times daily Resumed home gabapentin 300 mg 3 times daily Cyclobenzaprine 10 mg twice daily as needed for muscle pain Physical therapy referral ordered #History of constipation #Rectal fecal impaction #Stercoral proctitis Patient does have a history of constipation takes multiple medications to achieve bowel movements, including lactulose. Patient was noted to have fecal impaction and stercoral proctitis on CT scan. Fecal impaction resolved after enema administration in ED, which resulted in bowel movement. Diagnostic: CT abdomen/pelvis without contrast on 08/23 shows rectal fecal impaction and stercoral proctitis, cholelithiasis without acute cholecystitis, cirrhosis of the liver, nonspecific bilateral perinephric fat stranding, and partially distended urinary bladder with mild wall thickening Treatment: Senokot S daily as needed Consider resuming home medications, including home lactulose if patient continues to have issues with constipation Patient is status post enema administration in the ED, which resulted in a bowel movement, consider additional enema administrations if patient is persistently constipated DVT Prophylaxis: SCDs GI Prophylaxis: Protonix Bowel: Senokot S PRN Diet: NPO Alcantar: N/A Lines: PIV Antibiotics: Ceftriaxone & Doxycycline Code Status: FULL Reason for Hospitalization: GI bleed Other Barriers to Discharge: GI consult Patient plan of care was discussed with attending physician Dr. Jonathan Lal, PGY1 Attending Provider Attestation/Addendum I or my resident physicians have discussed care with the ED physician and I have made the decision to admit. I have discussed and was present for the essential components of the history, physical examination, diagnosis, and treatment plan with the resident. I agree with the patient's care as documented by the resident and amended herein by me. Celso Castillo DO. Although this document has been carefully reviewed, there may still be some phonetic and other typographical errors. These errors are purely grammatical due to imperfections in the software program and should not be construed in any way to compromise the substance of the patient's medical care during this visit.
[2025-08-23 04:51] LABS: Path Review Blood Smear Sent to Pathologist
[2025-08-23] MEDS: cefTRIAXone/D5w 1gm IV premix 1 GM/50 ML BAG IV (05:33)
--- NOTE | 2025-08-23 06:04 | PC.NURSE ---
REPORT CALLED AND GIVEN TO FINN OSORIO.
[2025-08-23 06:15] LABS: Basophils # (Auto) 0.1 Thou/mm3 (0.0-0.2); Basophils % (Auto) 1 % (0-2.5); Eosinophils # (Auto) 0.3 Thou/mm3 (0.0-0.5); Eosinophils % (Auto) 3 % (0-10); Hematocrit 32.1 % (41.0-53.0); Hemoglobin 10.0 g/dL (13.5-16.0); Immature Granulocytes Auto 0.03 Thou/mm3 (0.00-0.00); Lymphocytes # (Auto) 2.0 Thou/mm3 (1.0-4.8); Lymphocytes % (Auto) 18 % (10-50); Mean Corpuscular HGB Conc 31.2 g/dl (31.0-37.0); Mean Corpuscular Hemoglobin 25.8 pg (25.0-35.0); Mean Corpuscular Volume 83 fL (80-100); Monocytes # (Auto) 1.1 Thou/mm3 (0.0-0.8); Monocytes % (Auto) 10 % (0-12); Neutrophils # (Auto) 7.7 Thou/mm3 (1.8-7.7); Neutrophils % (Auto) 68 % (37-80); Nucleated Red Blood Cell # 0.00 Thou/mm3 (0.00-0.00); Nucleated Red Blood Cell % 0 /100 WBC (0); Platelet Count 210 Thou/mm3 (140-440); RDW Standard Deviation 42.5 fL (35.1-43.9); Red Blood Count 3.87 Miln/mm3 (4.50-5.90); White Blood Count 11.3 Thou/mm3 (3.8-10.6)
[2025-08-23 06:34] LABS: Albumin, Serum 3.6 gm/dL (3.5-5.0); Anion Gap 11 (7-16); BUN/Creatinine Ratio 16 Ratio (12-20); Blood Urea Nitrogen 24 mg/dL (9-23); Calcium 8.2 mg/dL (8.3-10.6); Calcium (Corrected) 8.5 mg/dL (8.5-10.1); Carbon Dioxide 24.4 mMol/L (20.0-31.0); Chloride 110 mMol/L (98-107); Creatinine (Component) 1.5 mg/dL (0.6-1.3); Glucose 90 mg/dL (74-106); Magnesium 1.7 mg/dL (1.6-2.6); Osmolality,Calculated 292 (275-295); Phosphorous 4.3 mg/dL (2.4-5.1); Potassium 4.6 mMol/L (3.4-5.1); Sodium 145 mMol/L (136-145); eGFR 56 See Note
[2025-08-23] MEDS: DOXYCYCLINE INJ 100 MG in SODIUM CHLORIDE 0.9% (POP) 100 ML IV ×2 (06:39→21:44)
[2025-08-23] MEDS: GABAPENTIN 100 MG CAPSULE 300 MG PO ×3 (06:48→21:44)
--- NOTE | 2025-08-23 07:13 | XR_ITS ---
Examination: Arterial duplex lower extremity unilateral left Date and time of exam: August 23, 2025, 0800 hours INDICATIONS: Nonhealing ulceration left ankle left leg swelling and pain nonhealing wound 2 weeks Findings: Duplex sonographic imaging of the lower extremity arteries using B-mode/Calderon scale imaging and Doppler spectral analysis and color flow. Left common femoral artery demonstrates triphasic flow. Left superficial femoral artery demonstrates triphasic flow. Left popliteal artery demonstrates triphasic flow. Left posterior tibial artery demonstrated biphasic flow. Excessive pain precluded ankle-brachial index Impression: Limited study with triphasic flow excepting biphasic flow left posterior tibial artery Consider correlation with CTA abdominal aorta iliofemoral runoff follow-up
[2025-08-23] MEDS: HYDROcodone/APAP 5/325 TABLET 1 TAB PO (09:45)
[2025-08-23] MEDS: TAMSULOSIN HCL 0.4 MG CAPSULE PO (09:45)
--- NOTE | 2025-08-23 12:12 | PC.PT ---
PT eval only. Patient is bedbound for >5years and uses a dru lift for transfers. Patient is not a candidate for skilled PT intervention at this time. RN made aware.
[2025-08-23] MEDS: DEXTROSE 50%-WATER INJ 50 ML SYRINGE 25 ML IV ×2 (12:31→15:59)
--- NOTE | 2025-08-23 12:35 | XR_ITS ---
Examination: Venous duplex lower extremity sonogram, bilateral. Date and time of exam: August 23, 2025, 1226 hours INDICATIONS: Leg swelling and pain left leg warmer than the right leg today Technique: Multiple sonographic images of the deep venous system have been obtained. B-mode/2-D grayscale imaging of vascular structures and Doppler spectral analysis (waveforms) and color performed Both legs are examined. Findings: Deep venous systems do not demonstrate abnormal echogenicity. Left lower leg edema All visualized deep veins exhibit compressibility. All visualized deep veins exhibit augmentation. Impression: Negative for deep vein thrombosis
--- NOTE | 2025-08-23 13:02 | PC.SS ---
Erasmo Pacheco is a 49-year-old male admitted to [facility] for GI Bleed. SS conducted over the phone contact with the pt uSsie Pacheco, . Susie confirmed all demographics. She reports pt was in a rehab and was DC May. Pt requires max assist at home with all ADLS, pt has a caregiver his cousin Marvin Olguin [phone]. Pt is able to sit up in a wheelchair although over the last 3 weeks has been in too much pain to get up into the wheelchair. Pts PCP is [facility], last visit was Tuesday 08/21. DC options discussed and they wish for pt to return home. Pt will need gurney transport, and possesses [employer] transport. SS will remain available for any additional needs or concerns. DC plan: Home DM: , Susie PCP: PADMINI Henson
--- NOTE | 2025-08-23 13:46 | ESPR_ITS ---
<Statement entered by Kailash Altamirano MD - 08/24/25 05:52> I saw and examined patient personally and supervised PGY 1 resident, Dr. Albert with formulating a management plan. I agree with the documentation with the exceptions as listed below. Plan of care discussed with Attending Dr. Purnima Altamirano MD PGY 2 Disclaimer: This note was dictated by speech recognition. Minor errors in family resource management specialist may be present due to voice recognition software. Documentation for date of: 08/23/25 Subjective Subjective Interval history: Patient seen at bedside. No acute overnight events. WBC increased to 11.3, afebrile. Patient complaining of left leg pain. Patient denies any chest pain, shortness of breath, abdominal pain, nausea, vomiting, dizziness. Patient's vitals and labs were reviewed. Duplex ultrasound was done of the left leg and was negative for DVT. GI consulted. Patient n.p.o. Exam Vital Signs Temp Pulse Resp BP Pulse Ox O2 Del Method O2 Flow Rate 97.6 F 86 18 129/87 H 98 Nasal Cannula 2 08/23/25 08:00 08/23/25 09:46 08/23/25 08:00 08/23/25 09:46 08/23/25 08:00 08/23/25 08:00 08/23/25 08:00 Narrative Exam General: Alert, no acute distress. Skin: Warm, dry, intact. Head: Normocephalic, atraumatic. Eye: Normal conjunctiva, PERRL. Throat: Oral mucosa dry. No obvious lesions in oropharynx. Cardiovascular: Regular rate and rhythm, no murmur, +S1/S2. Respiratory: Lungs are clear to auscultation, respirations unlabored, no crackles, no wheezing. Gastrointestinal: Soft, diffusely tender to light touch, non-distended. No guarding or rebound tenderness. Extremities: LLE enlarged and tender to touch compared to right, 1+ pitting edema, no cyanosis, no clubbing. Estimated 2 cm x 4 cm oval wound on left martinez laterally that contains red tissue, no drainage, and is tender to touch. Neuro: No focal deficits observed. Conversant, moving all extremities. No overt cerebellar signs/incoordination. Psychiatric: Cooperative, appropriate affect. Objective Labs 08/23/25 05:50 08/23/25 05:50 Labs: Laboratory Results - last 24 hr 08/22/25 08/22/25 08/23/25 23:10 23:48 00:12 WBC 9.1 RBC 2.70 L Hgb 6.9 L* Hct 22.2 L MCV 82 MCH 25.6 MCHC 31.1 RDW Std Deviation 41.8 Plt Count 166 D Neut % (Auto) 68 Lymph % (Auto) 18 [place] % (Auto) 10 Eos % (Auto) 3 Baso % (Auto) 1 Neut # (Auto) 6.2 Lymph # (Auto) 1.7 [place] # (Auto) 0.9 H Eos # (Auto) 0.2 Baso # (Auto) 0.1 Immature Gran # (Auto) 0.03 H Absolute Nucleated RBC 0.00 Immature Gran % 0 Nucleated RBC % 0 Smear Path Review Sent to Pathologist ESR 42 H VBG pH 7.44 VBG pCO2 37 VBG pO2 43 VBG O2 Sat (Eli) 85 L VBG Base Excess 1 Sodium 145 Potassium 4.0 Chloride 111 H Carbon Dioxide 24.4 Anion Gap 10 BUN 21 Creatinine 1.5 H Estim Creat Clear Calc Not Performed. eGFR 56 L BUN/Creatinine Ratio [address] Glu mg/dL 123 Hemoglobin A1c 5.9 Calculated Osmolality 291 Lactic Acid 0.4 Uric Acid 7.3 Calcium 8.0 L Corrected Calcium 8.5 Phosphorus Magnesium 1.6 Total Bilirubin 0.2 L Direct Bilirubin < 0.1 AST 16 ALT 9 L Alkaline Phosphatase 92 C-Reactive Prot, Quant 2.2 H B-Natriuretic Peptide 23 Total Protein 6.7 Albumin 3.4 L Globulin 3.3 Albumin/Globulin Ratio 1.0 L Amylase 45 Lipase 28 Beta-Hydroxybutyrate/Acetoacetate 0.4 Procalcitonin 0.15 TSH 1.69 Ur Collection Type Urine Color Urine Clarity Urine pH Ur Specific [place] Urine Protein Urine Glucose (UA) Urine Ketones Urine Blood Urine Nitrite Urine Bilirubin Urine Urobilinogen (Auto) Ur Leukocyte Esterase Urine RBC Urine WBC Ur Squamous Epith Cells Urine Bacteria Urine Yeast (Budding) Ur Culture Indicated? Stool Occult Blood Blood Type O Positive Antibody Screen NEGATIVE Crossmatch See Detail Blood Bank Wristband ID Yes 08/23/25 08/23/25 08/23/25 00:30 02:31 05:50 WBC 11.3 H RBC 3.87 L Hgb 10.0 L D Hct 32.1 L MCV 83 MCH 25.8 MCHC 31.2 RDW Std Deviation 42.5 Plt Count 210 D Neut % (Auto) 68 Lymph % (Auto) 18 [place] % (Auto) 10 Eos % (Auto) 3 Baso % (Auto) 1 Neut # (Auto) 7.7 Lymph # (Auto) 2.0 [place] # (Auto) 1.1 H Eos # (Auto) 0.3 Baso # (Auto) 0.1 Immature Gran # (Auto) 0.03 H Absolute Nucleated RBC 0.00 Immature Gran % 0 Nucleated RBC % 0 Smear Path Review ESR VBG pH VBG pCO2 VBG pO2 VBG O2 Sat (Eli) VBG Base Excess Sodium 145 Potassium 4.6 D Chloride 110 H Carbon Dioxide 24.4 Anion Gap 11 BUN 24 H Creatinine 1.5 H Estim Creat Clear Calc Not Performed. eGFR 56 L BUN/Creatinine Ratio [address] Glu mg/dL Hemoglobin A1c Calculated Osmolality 292 Lactic Acid Uric Acid Calcium 8.2 L Corrected Calcium 8.5 Phosphorus 4.3 Magnesium 1.7 Total Bilirubin Direct Bilirubin AST ALT Alkaline Phosphatase C-Reactive Prot, Quant B-Natriuretic Peptide Total Protein Albumin 3.6 Globulin Albumin/Globulin Ratio Amylase Lipase Beta-Hydroxybutyrate/Acetoacetate Procalcitonin TSH Ur Collection Type Clean Catch Urine Color Yellow Urine Clarity Turbid A Urine pH 6.0 Ur Specific [place] 1.021 Urine Protein 2+ A Urine Glucose (UA) Negative Urine Ketones Negative Urine Blood 2+ A Urine Nitrite Negative Urine Bilirubin Negative Urine Urobilinogen (Auto) Negative Ur Leukocyte Esterase Positive Urine RBC 13 H Urine WBC 420 H Ur Squamous Epith Cells 2 Urine Bacteria 1+ A Urine Yeast (Budding) Present A Ur Culture Indicated? Yes Stool Occult Blood Positive A Blood Type Antibody Screen Crossmatch Blood Bank Wristband ID ABG Interpretation ABG results: 08/22/25 23:10 VBG pH 7.44 VBG pCO2 37 VBG pO2 43 VBG Base Excess 1 Quality Measures Quality Measures VTE prophylaxis Assessment & Plan Assessment Current Active Medications: Generic Name Dose Route Start Last Admin Trade Name Freq PRN Reason Stop Dose Admin Acetaminophen 650 mg 08/23/25 03:46 Acetaminophen 325 Mg Tablet PO 09/22/25 03:45 Q6HR PRN FEVER > 101 or pain 1-3 Hydrocodone Bitart/Acetaminophen 1 tab 08/23/25 06:54 08/23/25 09:45 Hydrocodone/Apap 5/325 Tablet PO 08/28/25 06:53 1 tab Q4HR PRN Administration Pain (mod 4-6) Amlodipine Besylate 10 mg 08/23/25 09:00 08/23/25 09:46 Amlodipine Besylate 5 Mg Tablet PO 09/22/25 08:59 10 mg QDAY SHANNON Administration Cyclobenzaprine HCl 10 mg 08/23/25 03:40 08/23/25 06:31 Cyclobenzaprine 5 Mg Tablet PO 09/22/25 03:39 10 mg BID PRN Administration Muscle Spasms or Muscle pain Dextrose 25 ml 08/23/25 04:04 08/23/25 12:31 Dextrose 50%-Water Inj 50 Ml Syringe IV 09/22/25 04:03 25 ml Q15MIN PRN Administration BG 50-70 responsive npo pt Dextrose 50 ml 08/23/25 04:04 Dextrose 50%-Water Inj 50 Ml Syringe IV 09/22/25 04:03 Q15MIN PRN BG <50 OR BG <70 & pt unresponsive Gabapentin 300 mg 08/23/25 06:00 08/23/25 06:48 Gabapentin 100 Mg Capsule PO 09/22/25 05:59 300 mg TID SHANNON Administration Glucagon 1 mg 08/23/25 04:04 Glucagon Inj 1 Mg Vial IM Q15MIN PRN BG <70, and no IV access Ceftriaxone Sodium/Dextrose 1 gm in 50 mls @ 100 mls/hr 08/24/25 09:00 Rocephin/D5w 1gm Iv Premix IV 08/30/25 03:44 QDAY SHANNON Doxycycline Hyclate 100 mg/ 100 mls @ 100 mls/hr 08/23/25 21:00 Sodium Chloride IV 08/30/25 04:14 BID SHANNON Octreotide Acetate 1,000 mcg/ 102 mls @ 5.1 mls/hr 08/23/25 12:30 Sodium Chloride IV 08/28/25 12:29 .Q20H [facility] Protocol 50 MCG/HR Insulin Human Lispro 0 unit 08/23/25 12:00 08/23/25 12:34 Insulin Lispro (Admelog) 1 Unit/0.01 Ml Unit SC 09/22/25 04:14 Not Given Q6HR@0000,0600,1200,1800 [facility] Protocol Methocarbamol 500 mg 08/23/25 06:00 08/23/25 09:45 Methocarbamol 500 Mg Tablet PO 09/22/25 05:59 500 mg TID SHANNON Administration Morphine Sulfate 2 mg 08/23/25 06:54 Morphine Sulf Inj 4 Mg/Ml Vial IVP 08/28/25 06:53 Q4HR PRN for severe 7-10 pain Ondansetron HCl 4 mg 08/23/25 03:26 Ondansetron Inj 2 Mg/Ml Inj 2 Ml IVP 09/22/25 03:25 Q6H PRN NAUSEA OR VOMITING Protocol Pantoprazole Sodium 40 mg 08/23/25 09:00 08/23/25 09:45 Pantoprazole Inj 40 Mg Vial IVP 09/22/25 08:59 40 mg BID SHANNON Administration Sennosides 1 tab 08/23/25 03:41 Senna/Docusate Sod 1 Tab Tablet PO 09/22/25 03:40 QDAY PRN CONSTIPATION Protocol Silver Sulfadiazine 0 gm 08/23/25 10:45 Silver Sulfadiazine Cr 1% 25 Gm Tube TOP 08/30/25 10:44 BID SHANNON Tamsulosin HCl 0.4 mg 08/23/25 09:00 08/23/25 09:45 Tamsulosin Hcl 0.4 Mg Capsule PO 09/22/25 08:59 0.4 mg QDAY SHANNON Administration Plan 49-year-old male with history of CVA (residual left-sided weakness), CKD, type 2 diabetes mellitus, hypertension, constipation, COPD (on 2 L home oxygen) and DVT who presented to [facility] ED on 08/22 for a left leg wound. Patient was admitted for management of GI bleed. #GI bleed #Melena Patient has been taking Xarelto daily for about 6 months ever since he had a DVT around that time. Since about 1 month ago, the patient noticed that he has been having increasingly dark, tarry stools. Initially, patient was noted to have 1 episode of bright red blood in his stool about a week ago. Patient was found to have a hemoglobin of 6.9 on admission, likely secondary to an upper GI bleed that is worsened by his Xarelto intake. Patient's last colonoscopy was about a week ago, however he does not know the results of the colonoscopy as his PCP has been away recently. The patient does not recall any endoscopies in his past. Diagnostic: Hemoglobin on admission 6.9, after 1 unit of PRBC increased to 10 FOBT positive in ED Treatment: GI consulted, appreciate recommendations Protonix 40 mg twice daily Patient made n.p.o. Patient received 1 unit of PRBC, will continue to transfuse if hemoglobin is less than 7 per protocol Continue to monitor with CBC daily #UTI, asymptomatic #Left lower extremity cellulitis Patient noted to have a dirty UA, however he does not complain of any signs of dysuria, frequency, incontinence etc. Additionally, patient was found to have signs of cellulitis on left lower extremity on CT scan. Left lower extremity does look enlarged, however no erythema or warmth was noted. Given that the patient does have elevations of ESR and CRP, will consider management with antibiotics. Diagnostic: UA positive for 2+ protein, 2+ blood, leukocyte esterase positive, 13 RBC, 420 WBC, 1+ urine bacteria, and urine yeast CT left ankle with contrast on 08/23 shows soft tissue wound on the left posterior lateral aspect of the left lower leg, diffuse fat stranding in the subcutaneous soft tissue of the left leg consistent with cellulitis LRINEC score 6 points Urine culture collected on 08/23, pending Treatment: Doxycycline 100 mg twice daily (08/23?) Ceftriaxone 1 g daily (08/23?) #Well-controlled insulin-dependent type 2 diabetes mellitus Patient noted to have well-controlled insulin-dependent type 2 diabetes mellitus. Hemoglobin A1c on admission noted to be 5.9%. Treatment: Sliding scale insulin Bedside glucose checks every 6 hours (will change to ACHS once patient is no longer n.p.o.) #History of CKD stage IIIa Patient noted to have a history of CKD stage IIIa. Creatinine on admission 1.5 and eGFR 56 on admission, stable and not significantly changed compared to previous labs. Treatment: Patient to follow-up outpatient Renally dose medications Avoid nephrotoxic drugs #History of COPD, on 2 L home oxygen Patient states that he has a history of COPD and uses 2 L of oxygen at home 23/03. Diagnostic: Chest x-ray on 08/22 shows bilateral parenchymal disease Treatment: Oxygen delivery via nasal cannula as needed If patient has flare, consider giving DuoNebs #Liver cirrhosis #Cholelithiasis As noted on CT scan and ultrasound gallbladder. Patient does have diffuse abdominal pain that is nonspecific. Patient does not endorse a significant drinking history, so cirrhosis is possibly secondary to MASLD. Low suspicion for cholecystitis given nonspecific findings, negative CT findings, and no leukocytosis. Diagnostic: CT abdomen/pelvis without contrast on 08/23 shows rectal fecal impaction and stercoral proctitis, cholelithiasis without acute cholecystitis, cirrhosis of the liver, nonspecific bilateral perinephric fat stranding, and partially distended urinary bladder with mild wall thickening Gallbladder ultrasound on 08/23 shows cholelithiasis with mild wall thickening and without pericholecystic fluid Treatment: Patient to follow-up outpatient Consider resuming home lactulose if patient becomes encephalopathic, however the patient does not endorse a specific history of this condition #History of hypertension #History of muscle cramping Patient noted to have a history of hypertension and muscle cramping. Resumed some of his home medications. Patient states that opiate medications often do not really help his muscle cramps. Muscle cramps are likely secondary to inactivity from left-sided stroke. The patient also notes that he recently stopped having physical therapy about a month ago, and developed significant muscle cramping about 3 weeks ago, however he needs his PCP to renew the physical therapy order. Treatment: Resumed home amlodipine 10 mg daily Will hold off on carvedilol 12.5 mg twice daily until resolution of bleeding Resumed home methocarbamol 500 mg 3 times daily Resumed home gabapentin 300 mg 3 times daily Cyclobenzaprine 10 mg twice daily as needed for muscle pain Physical therapy referral ordered #History of constipation #Rectal fecal impaction #Stercoral proctitis Patient does have a history of constipation takes multiple medications to achieve bowel movements, including lactulose. Patient was noted to have fecal impaction and stercoral proctitis on CT scan. Fecal impaction resolved after enema administration in ED, which resulted in bowel movement. Diagnostic: CT abdomen/pelvis without contrast on 08/23 shows rectal fecal impaction and stercoral proctitis, cholelithiasis without acute cholecystitis, cirrhosis of the liver, nonspecific bilateral perinephric fat stranding, and partially distended urinary bladder with mild wall thickening Treatment: Senokot S daily as needed Consider resuming home medications, including home lactulose if patient continues to have issues with constipation Patient is status post enema administration in the ED, which resulted in a bowel movement, consider additional enema administrations if patient is persistently constipated Health Maintenance: Diet: N.p.o. GI prophylaxis: Protonix DVT prophylaxis: SCDs Antibiotics: Ceftriaxone and doxycycline CODE STATUS: Full Disposition: Tele Case discussed with my attending Dr. Felton, and senior resident, Dr. Evelia Albert MD PGY-1 Attending Provider Attestation/Addendum I have seen and examined the patient. I was physically present for the arredondo portions of the services provided including history, physical exam, diagnosis, treatment plans and orders. I agree with assessment and plan of care as documented by residents. Even though this this note was carefully revised there may still be minor errors in family resource management specialist due to voice recognition software. Jesus Felton MD
[2025-08-23] MEDS: MORPHINE SULF INJ 4 MG/ML VIAL 2 MG IVP (13:57)
[2025-08-23] MEDS: SILVER SULFADIAZINE CR 1% 25 GM TUBE TOP ×2 (13:57→21:45)
[2025-08-23] MEDS: OCTREOTIDE ACET INJ 1,000 MCG in SODIUM CHLORIDE 0.9% 100 ML 5.1 MCG IV (13:58)
[2025-08-23] MEDS: OCTREOTIDE ACET INJ 50 mCg/ML VIAL IV (13:58)
[2025-08-23] MEDS: ONDANSETRON INJ 2 MG/ML INJ 2 ML 4 MG IVP (14:07)
--- NOTE | 2025-08-23 15:48 | PC.SS ---
Rounding: Pending Dr. Muhammad reccs possible EGD vs Colonoscopy
--- NOTE | 2025-08-23 16:54 | PD.IMCONS ---
HPI Data of Consult Requesting Physician: Jesus Felton MD Primary Care Provider: Taiwo Olguin MD Consult Narrative Reason for consult: Melena, FOBT positive History of present illness: 49 years old male presented the hospital with a left leg wound subsequently found to have a hemoglobin 6.9 and 22.2 hematocrit with a platelet count of 200 and thousand he has been given blood transfusion hemoglobin is up to 10.0 hematocrit 32.1 Patient did have a colonoscopy about 2 weeks ago and has not gotten the results He does have a history of right CVA with left residual hemiparesis CKD diabetes mellitus type 2 and lower extremity DVT was on Xarelto about 6 months ago cc:: cc: Jesus Felton MD Review of Systems Review of Systems Systems Reviewed: All systems reviewed, normal except as documented Past Medical History Surgical History OTHER SURGICAL HX: As in the history of present illness Meds Home Medications and Allergies Home Medications ?Medication ?Instructions ?Recorded ?Confirmed ?Type gabapentin 300 mg capsule 300 mg PO TID 01/23/20 08/23/25 History insulin glargine 100 unit/mL (3 5 unit subcut HS 06/07/20 08/23/25 History mL) subcutaneous pen (Basaglar KwikPen U-100 Insulin) amlodipine 10 mg tablet 10 mg PO QDAY 04/30/21 08/23/25 History carvedilol 12.5 mg tablet 12.5 mg PO BID 04/30/21 08/23/25 History docusate sodium 250 mg capsule 250 mg PO BID 01/09/24 08/23/25 History lactulose 10 gram/15 mL oral 15 ml PO BID PRN Constipation 01/09/24 08/23/25 History solution sodium phosphates 19 gram-7 118 ml [place] Q72H PRN Constipation 01/09/24 08/23/25 History gram/118 mL enema (Fleet Enema) rivaroxaban 20 mg tablet (Xarelto) 20 mg PO QDAY 02/22/24 08/23/25 History tramadol 100 mg tablet 100 mg PO Q8HR PRN Pain 02/22/24 08/23/25 History linaclotide 145 mcg capsule 145 mcg PO QDAY 08/23/25 08/23/25 History (Linzess) methocarbamol 500 mg tablet 500 mg PO TID 08/23/25 08/23/25 History Allergies Allergy/AdvReac Type Severity Reaction Status Date / Time No Known Allergies Allergy Verified 02/22/24 05:30 Exam Vital Signs Temp Pulse Resp BP Pulse Ox O2 Del Method O2 Flow Rate 97.4 F 71 16 159/80 H 92 L Nasal Cannula 3 08/23/25 16:00 08/23/25 16:45 08/23/25 16:45 08/23/25 16:45 08/23/25 16:45 08/23/25 08:00 08/23/25 16:45 Constitutional Comments: Chronically ill-appearing Routine Respiratory Exam Comments: Normal to auscultation Routine Abdominal Exam Comments: Soft nontender Results Labs 08/23/25 05:50 08/23/25 05:50 Labs: Short CBC 08/22/25 08/23/25 Range/Units 23:10 05:50 WBC 9.1 11.3 H (3.8-10.6) Thou/mm3 Hgb 6.9 L* 10.0 L D (13.5-16.0) g/dL Hct 22.2 L 32.1 L (41.0-53.0) % Plt Count 166 D 210 D (140-440) Thou/mm3 BMP 08/22/25 08/23/25 23:10 05:50 Sodium 145 145 Potassium 4.0 4.6 D Chloride 111 H 110 H Carbon Dioxide 24.4 24.4 BUN 21 24 H Creatinine 1.5 H 1.5 H Glucose 102 90 Calcium 8.0 L 8.2 L Liver Function 08/22/25 08/23/25 Range/Units 23:10 05:50 Total Bilirubin 0.2 L (0.3-1.2) mg/dL Direct Bilirubin < 0.1 (0.0-0.3) mg/dL AST 16 (0-34) U/L ALT 9 L (10-49) U/L Alkaline Phosphatase 92 (46-116) U/L Albumin 3.4 L 3.6 (3.5-5.0) gm/dL Urine 08/23/25 Range/Units 02:31 Urine Color Yellow (Lt Yel-Yel) Urine Clarity Turbid A (Clear/Hazy) Urine pH 6.0 (5.0-7.0) Ur Specific [place] 1.021 (1.001-1.035) Urine Protein 2+ A (Neg - Trace) Urine Glucose (UA) Negative (Negative) ABG Interpretation ABG results: 08/22/25 23:10 VBG pH 7.44 VBG pCO2 37 VBG pO2 43 VBG Base Excess 1 Assessment and Plan Additional Assessment & Plan Additional Plan: # Occult GI bleeding # Acute posthemorrhagic anemia requiring blood transfusion Plan Consent obtained for fiberoptic esophagogastroduodenoscopy possible therapeutic intervention biopsy under intravenous moderate sedation We will proceed with the procedure Other medical problems include # Left leg wound # Diabetes mellitus type 1 # CVA with residual left motor weakness # DVT lower extremity # COPD on home oxygen 2 L nasal cannula Thank you very much for the opportunity to participate in the care of this patient
--- NOTE | 2025-08-23 16:55 | SUR.PHASEI ---
[id number] patient arrived to recovery resting comfortably in [facility], on oxygen 4L via nasal cannula, able to arouse with verbal prompting, then drifts back to sleep, breathing unlabored, vital signs stable, denies pain and nausea, report received from Destiny OSORIO
--- NOTE | 2025-08-23 17:42 | SUR.PHASEI ---
[id number] patient transported via gurney to room 380 without incident, Tessa OSORIO and [employer] promptly in patients room, patient resting comfortably in bed with call light in reach, when this junior technical writer left patients room
[2025-08-24] VITALS (9 sets, daily range): BP systolic 118–145; BP diastolic 75–84; PULSE 71–88; RESP 15–19; TEMP 36.3–37.1; O2SAT 95–98; BMI 29.2
[2025-08-24] MEDS: HYDROcodone/APAP 5/325 TABLET 1 TAB PO (04:17)
[2025-08-24 05:10] LABS: Basophils # (Auto) 0.1 Thou/mm3 (0.0-0.2); Basophils % (Auto) 1 % (0-2.5); Eosinophils # (Auto) 0.4 Thou/mm3 (0.0-0.5); Eosinophils % (Auto) 5 % (0-10); Hematocrit 31.4 % (41.0-53.0); Hemoglobin 9.6 g/dL (13.5-16.0); Immature Granulocytes Auto 0.03 Thou/mm3 (0.00-0.00); Lymphocytes # (Auto) 1.8 Thou/mm3 (1.0-4.8); Lymphocytes % (Auto) 20 % (10-50); Mean Corpuscular HGB Conc 30.6 g/dl (31.0-37.0); Mean Corpuscular Hemoglobin 25.3 pg (25.0-35.0); Mean Corpuscular Volume 83 fL (80-100); Monocytes # (Auto) 0.8 Thou/mm3 (0.0-0.8); Monocytes % (Auto) 9 % (0-12); Neutrophils # (Auto) 5.9 Thou/mm3 (1.8-7.7); Neutrophils % (Auto) 65 % (37-80); Nucleated Red Blood Cell # 0.00 Thou/mm3 (0.00-0.00); Nucleated Red Blood Cell % 0 /100 WBC (0); Platelet Count 210 Thou/mm3 (140-440); RDW Standard Deviation 42.7 fL (35.1-43.9); Red Blood Count 3.80 Miln/mm3 (4.50-5.90); White Blood Count 9.0 Thou/mm3 (3.8-10.6)
[2025-08-24 05:30] LABS: Albumin, Serum 3.6 gm/dL (3.5-5.0); Anion Gap 11 (7-16); BUN/Creatinine Ratio 13 Ratio (12-20); Blood Urea Nitrogen 22 mg/dL (9-23); Calcium 8.2 mg/dL (8.3-10.6); Calcium (Corrected) 8.5 mg/dL (8.5-10.1); Carbon Dioxide 23.8 mMol/L (20.0-31.0); Chloride 109 mMol/L (98-107); Creatinine (Component) 1.7 mg/dL (0.6-1.3); Estimated Creatinine Clearance 51.9 mL/min (>60); Glucose 78 mg/dL (74-106); Osmolality,Calculated 289 (275-295); Phosphorous 4.2 mg/dL (2.4-5.1); Potassium 4.6 mMol/L (3.4-5.1); Sodium 144 mMol/L (136-145); eGFR 49 See Note
[2025-08-24] MEDS: GABAPENTIN 100 MG CAPSULE 300 MG PO ×3 (05:42→21:34)
[2025-08-24 06:10] LABS: Hepatitis A Antibody IgM Non Reactive (Non React); Hepatitis B Core Antibody IgM Non Reactive (Non React); Hepatitis B Surface Antigen Non Reactive (Non React); Hepatitis C Antibody Reactive (Non React)
[2025-08-24 09:52] LABS: HIV (1&2) Antibody Rapid Non-Reactive
[2025-08-24] MEDS: DOXYCYCLINE INJ 100 MG in SODIUM CHLORIDE 0.9% (POP) 100 ML IV ×2 (09:59→21:33)
[2025-08-24] MEDS: SENNA/DOCUSATE SOD 1 TAB TABLET PO (10:00)
[2025-08-24] MEDS: TAMSULOSIN HCL 0.4 MG CAPSULE PO (10:00)
[2025-08-24] MEDS: cefTRIAXone/D5w 1gm IV premix 1 GM/50 ML BAG IV (10:00)
[2025-08-24] MEDS: SUCRALFATE SUSP 1 GM/10 ML UDC PO ×2 (12:20→21:33)
--- NOTE | 2025-08-24 12:33 | ESPR_ITS ---
<Statement entered by Kailash Altamirano MD - 08/25/25 16:42> I saw and examined patient personally and supervised PGY 1 resident, Dr. Albert with formulating a management plan. I agree with the documentation as listed below. Plan of care discussed with Attending Dr. Purnima Altamirano MD PGY 2 Disclaimer: This note was dictated by speech recognition. Minor errors in repair table operator may be present due to voice recognition software. Documentation for date of: 08/24/25 Subjective Subjective Interval history: Patient seen at bedside. No acute overnight events. WBC decreased to 9, afebrile. Patient complaining of left leg pain. Patient denies any chest pain, shortness of breath, abdominal pain, nausea, vomiting, dizziness. Patient's vitals and labs were reviewed. EGD done yesterday and it showed esophagitis, erythematous gastritis. Discontinued octreotide. Urine culture still pending. Cellulitis of left lower extremity continues to be treated with antibiotics. If cultures remain negative and patient continues to improve, anticipate discharge in the next 24 hours. Exam Vital Signs Temp Pulse Resp BP Pulse Ox O2 Del Method O2 Flow Rate 97.6 F 76 18 137/76 H 98 Nasal Cannula 2 08/24/25 08:00 08/24/25 10:00 08/24/25 08:00 08/24/25 10:00 08/24/25 08:00 08/24/25 04:00 08/24/25 04:00 Narrative Exam General: Alert, no acute distress. Skin: Warm, dry, intact. Head: Normocephalic, atraumatic. Eye: Normal conjunctiva, PERRL. Throat: Oral mucosa dry. No obvious lesions in oropharynx. Cardiovascular: Regular rate and rhythm, no murmur, +S1/S2. Respiratory: Lungs are clear to auscultation, respirations unlabored, no crackles, no wheezing. Gastrointestinal: Soft, diffusely tender to light touch, non-distended. No guarding or rebound tenderness. Extremities: LLE enlarged and tender to touch compared to right, 1+ pitting edema, no cyanosis, no clubbing. Estimated 2 cm x 4 cm oval wound on left martinez laterally that contains red tissue, no drainage, and is tender to touch. Neuro: No focal deficits observed. Conversant, moving all extremities. No overt cerebellar signs/incoordination. Psychiatric: Cooperative, appropriate affect. Objective Labs 08/25/25 04:25 08/25/25 04:25 Labs: Laboratory Results - last 24 hr 08/24/25 05:00 WBC 9.0 RBC 3.80 L Hgb 9.6 L Hct 31.4 L MCV 83 MCH 25.3 MCHC 30.6 L RDW Std Deviation 42.7 Plt Count 210 Neut % (Auto) 65 Lymph % (Auto) 20 [place] % (Auto) 9 Eos % (Auto) 5 Baso % (Auto) 1 Neut # (Auto) 5.9 Lymph # (Auto) 1.8 [place] # (Auto) 0.8 Eos # (Auto) 0.4 Baso # (Auto) 0.1 Immature Gran # (Auto) 0.03 H Absolute Nucleated RBC 0.00 Immature Gran % 0 Nucleated RBC % 0 Sodium 144 Potassium 4.6 Chloride 109 H Carbon Dioxide 23.8 Anion Gap 11 BUN 22 Creatinine 1.7 H Estim Creat Clear Calc 51.9 L eGFR 49 L BUN/Creatinine Ratio 13 Glucose 78 Calculated Osmolality 289 Calcium 8.2 L Corrected Calcium 8.5 Phosphorus 4.2 Albumin 3.6 Hepatitis A IgM Ab Non Reactive Hep Bs Antigen Non Reactive Hep B Core IgM Ab Non Reactive Hepatitis C Antibody Reactive A HIV 1&2 Antibody Rapid Non-Reactive ABG Interpretation ABG results: 08/22/25 23:10 VBG pH 7.44 VBG pCO2 37 VBG pO2 43 VBG Base Excess 1 Quality Measures Quality Measures VTE prophylaxis Assessment & Plan Assessment Current Active Medications: Generic Name Dose Route Start Last Admin Trade Name Gayle PRN Reason Stop Dose Admin Acetaminophen 650 mg 08/23/25 03:46 Acetaminophen 325 Mg Tablet PO 09/22/25 03:45 Q6HR PRN FEVER > 101 or pain 1-3 Hydrocodone Bitart/Acetaminophen 1 tab 08/23/25 06:54 08/24/25 04:17 Hydrocodone/Apap 5/325 Tablet PO 08/28/25 06:53 1 tab Q4HR PRN Administration Pain (mod 4-6) Amlodipine Besylate 10 mg 08/23/25 09:00 08/24/25 10:00 Amlodipine Besylate 5 Mg Tablet PO 09/22/25 08:59 10 mg QDAY SHANNON Administration Cyclobenzaprine HCl 10 mg 08/23/25 03:40 08/23/25 06:31 Cyclobenzaprine 5 Mg Tablet PO 09/22/25 03:39 10 mg BID PRN Administration Muscle Spasms or Muscle pain Dextrose 25 ml 08/23/25 04:04 08/23/25 15:59 Dextrose 50%-Water Inj 50 Ml Syringe IV 09/22/25 04:03 25 ml Q15MIN PRN Administration BG 50-70 responsive npo pt Dextrose 50 ml 08/23/25 04:04 Dextrose 50%-Water Inj 50 Ml Syringe IV 09/22/25 04:03 Q15MIN PRN BG <50 OR BG <70 & pt unresponsive Gabapentin 300 mg 08/23/25 06:00 08/24/25 05:42 Gabapentin 100 Mg Capsule PO 09/22/25 05:59 300 mg TID SHANNON Administration Glucagon 1 mg 08/23/25 04:04 Glucagon Inj 1 Mg Vial IM Q15MIN PRN BG <70, and no IV access Ceftriaxone Sodium/Dextrose 1 gm in 50 mls @ 100 mls/hr 08/24/25 09:00 08/24/25 10:00 Rocephin/D5w 1gm Iv Premix IV 08/30/25 03:44 100 mls/hr QDAY SHANNON Administration Doxycycline Hyclate 100 mg/ 100 mls @ 100 mls/hr 08/23/25 21:00 08/24/25 09:59 Sodium Chloride IV 08/30/25 04:14 100 mls/hr BID SHANNON Administration Insulin Human Lispro 0 unit 08/23/25 12:00 08/24/25 06:00 Insulin Lispro (Admelog) 1 Unit/0.01 Ml Unit SC 09/22/25 04:14 Not Given Q6HR@0000,0600,1200,1800 [facility] Protocol Methocarbamol 500 mg 08/23/25 06:00 08/24/25 05:43 Methocarbamol 500 Mg Tablet PO 09/22/25 05:59 500 mg TID SHANNON Administration Morphine Sulfate 2 mg 08/23/25 06:54 08/23/25 13:57 Morphine Sulf Inj 4 Mg/Ml Vial IVP 08/28/25 06:53 2 mg Q4HR PRN Administration for severe 7-10 pain Ondansetron HCl 4 mg 08/23/25 03:26 08/23/25 14:07 Ondansetron Inj 2 Mg/Ml Inj 2 Ml IVP 09/22/25 03:25 4 mg Q6H PRN Administration NAUSEA OR VOMITING Protocol Pantoprazole Sodium 40 mg 08/24/25 09:00 08/24/25 10:00 Pantoprazole Inj 40 Mg Vial IVP 09/23/25 08:59 40 mg BID SHANNON Administration Sennosides 1 tab 08/24/25 09:00 08/24/25 10:00 Senna/Docusate Sod 1 Tab Tablet PO 09/23/25 08:59 1 tab QDAY SHANNON Administration Protocol Silver Sulfadiazine 0 gm 08/23/25 10:45 08/23/25 21:45 Silver Sulfadiazine Cr 1% 25 Gm Tube TOP 08/30/25 10:44 1 applicatio BID SHANNON Administration Sucralfate 1 gm 08/24/25 11:30 Sucralfate Susp 1 Gm/10 Ml Udc PO 09/23/25 11:29 ACHS SHANNON Tamsulosin HCl 0.4 mg 08/23/25 09:00 08/24/25 10:00 Tamsulosin Hcl 0.4 Mg Capsule PO 09/22/25 08:59 0.4 mg QDAY SHANNON Administration Plan 49-year-old male with history of CVA (residual left-sided weakness), CKD, type 2 diabetes mellitus, hypertension, constipation, COPD (on 2 L home oxygen) and DVT who presented to [facility] ED on 08/22 for a left leg wound. Patient was admitted for management of GI bleed. #GI bleed, upper GI bleed from gastritis #Melena Patient has been taking Xarelto daily for about 6 months ever since he had a DVT around that time. Since about 1 month ago, the patient noticed that he has been having increasingly dark, tarry stools. Initially, patient was noted to have 1 episode of bright red blood in his stool about a week ago. Patient was found to have a hemoglobin of 6.9 on admission, likely secondary to an upper GI bleed that is worsened by his Xarelto intake. Patient's last colonoscopy was about a week ago, however he does not know the results of the colonoscopy as his PCP has been away recently. The patient does not recall any endoscopies in his past. Diagnostic: Hemoglobin on admission 6.9, after 1 unit of PRBC increased to 10 FOBT positive in ED Treatment: - GI consulted, appreciate recommendations - Protonix 40 mg twice daily - Transfuse if hemoglobin is less than 7 per protocol - Continue to monitor with CBC daily - Xarelto has been held, will discontinue the medication as patient has provoked DVT and has already received 6 months of treatment, DVT of left leg ruled out #Left lower extremity cellulitis #UTI, asymptomatic Patient noted to have a dirty UA, however he does not complain of any signs of dysuria, frequency, incontinence etc. Additionally, patient was found to have signs of cellulitis on left lower extremity on CT scan. Left lower extremity does look enlarged, however no erythema or warmth was noted. Given that the patient does have elevations of ESR and CRP, will consider management with antibiotics. Diagnostic: UA positive for 2+ protein, 2+ blood, leukocyte esterase positive, 13 RBC, 420 WBC, 1+ urine bacteria, and urine yeast CT left ankle with contrast on 08/23 shows soft tissue wound on the left posterior lateral aspect of the left lower leg, diffuse fat stranding in the subcutaneous soft tissue of the left leg consistent with cellulitis LRINEC score 6 points Urine culture collected on 08/23, pending Treatment: - Doxycycline 100 mg twice daily (08/23?) - Ceftriaxone 1 g daily (08/23?) - Wound care following #Well-controlled insulin-dependent type 2 diabetes mellitus Patient noted to have well-controlled insulin-dependent type 2 diabetes mellitus. Hemoglobin A1c on admission noted to be 5.9%. Treatment: - Sliding scale insulin - Bedside glucose checks every 6 hours (will change to ACHS once patient is no longer n.p.o.) #History of CKD stage IIIa Patient noted to have a history of CKD stage IIIa. Creatinine on admission 1.5 and eGFR 56 on admission, stable and not significantly changed compared to previous labs. Treatment: - Patient to follow-up outpatient - Renally dose medications - Avoid nephrotoxic drugs #History of COPD, on 2 L home oxygen Patient states that he has a history of COPD and uses 2 L of oxygen at home 23/03. Diagnostic: Chest x-ray on 08/22 shows bilateral parenchymal disease Treatment: - Oxygen delivery via nasal cannula as needed - If patient has flare, consider giving DuoNebs #Liver cirrhosis #Cholelithiasis As noted on CT scan and ultrasound gallbladder. Patient does have diffuse abdominal pain that is nonspecific. Patient does not endorse a significant drinking history, so cirrhosis is possibly secondary to MASLD. Low suspicion for cholecystitis given nonspecific findings, negative CT findings, and no leukocytosis. Diagnostic: CT abdomen/pelvis without contrast on 08/23 shows rectal fecal impaction and stercoral proctitis, cholelithiasis without acute cholecystitis, cirrhosis of the liver, nonspecific bilateral perinephric fat stranding, and partially distended urinary bladder with mild wall thickening Gallbladder ultrasound on 08/23 shows cholelithiasis with mild wall thickening and without pericholecystic fluid Treatment: - Patient to follow-up outpatient - Consider resuming home lactulose if patient becomes encephalopathic, however the patient does not endorse a specific history of this condition #History of hypertension #History of muscle cramping Patient noted to have a history of hypertension and muscle cramping. Resumed some of his home medications. Patient states that opiate medications often do not really help his muscle cramps. Muscle cramps are likely secondary to inactivity from left-sided stroke. The patient also notes that he recently stopped having physical therapy about a month ago, and developed significant muscle cramping about 3 weeks ago, however he needs his PCP to renew the physical therapy order. Treatment: - Resumed home amlodipine 10 mg daily - Will hold off on carvedilol 12.5 mg twice daily until resolution of bleeding - Resumed home methocarbamol 500 mg 3 times daily - Resumed home gabapentin 300 mg 3 times daily - Cyclobenzaprine 10 mg twice daily as needed for muscle pain - Physical therapy following #History of constipation #Rectal fecal impaction #Stercoral proctitis Patient does have a history of constipation takes multiple medications to achieve bowel movements, including lactulose. Patient was noted to have fecal impaction and stercoral proctitis on CT scan. Fecal impaction resolved after enema administration in ED, which resulted in bowel movement. Diagnostic: CT abdomen/pelvis without contrast on 08/23 shows rectal fecal impaction and stercoral proctitis, cholelithiasis without acute cholecystitis, cirrhosis of the liver, nonspecific bilateral perinephric fat stranding, and partially distended urinary bladder with mild wall thickening Treatment: - Senokot daily - Consider resuming home medications, including home lactulose if patient continues to have issues with constipation Health Maintenance: Diet: Carb consistent diet GI prophylaxis: Protonix DVT prophylaxis: SCDs Antibiotics: Ceftriaxone and doxycycline CODE STATUS: Full Disposition: Tele Case discussed with my attending Dr. Felton, and senior resident, Dr. Evelia Albert MD PGY-1 Attending Provider Attestation/Addendum I have seen and examined the patient. I was physically present for the arredondo portions of the services provided including history, physical exam, diagnosis, treatment plans and orders. I agree with assessment and plan of care as documented by residents. Even though this this note was carefully revised there may still be minor errors in repair table operator due to voice recognition software. Jesus Felton MD
--- NOTE | 2025-08-24 16:35 | PD.IMPROG ---
Documentation for date of: 08/24/25 Subjective Subjective Interval history: Patient evaluated Upper endoscopy showed hemorrhagic gastritis Hemoglobin hematocrit 9.6 and 31.4 Exam Vital Signs Temp Pulse Resp BP Pulse Ox O2 Del Method O2 Flow Rate 97.8 F 78 19 130/80 95 Room Air 3 08/24/25 12:00 08/24/25 12:00 08/24/25 12:00 08/24/25 12:00 08/24/25 12:00 08/24/25 12:00 08/24/25 06:45 Objective Labs 08/24/25 05:00 08/24/25 05:00 Labs: Laboratory Results - last 24 hr 08/24/25 05:00 WBC 9.0 RBC 3.80 L Hgb 9.6 L Hct 31.4 L MCV 83 MCH 25.3 MCHC 30.6 L RDW Std Deviation 42.7 Plt Count 210 Neut % (Auto) 65 Lymph % (Auto) 20 [place]ie % (Auto) 9 Eos % (Auto) 5 Baso % (Auto) 1 Neut # (Auto) 5.9 Lymph # (Auto) 1.8 Bertie # (Auto) 0.8 Eos # (Auto) 0.4 Baso # (Auto) 0.1 Immature Gran # (Auto) 0.03 H Absolute Nucleated RBC 0.00 Immature Gran % 0 Nucleated RBC % 0 Sodium 144 Potassium 4.6 Chloride 109 H Carbon Dioxide 23.8 Anion Gap 11 BUN 22 Creatinine 1.7 H Estim Creat Clear Calc 51.9 L eGFR 49 L BUN/Creatinine Ratio 13 Glucose 78 Calculated Osmolality 289 Calcium 8.2 L Corrected Calcium 8.5 Phosphorus 4.2 Albumin 3.6 Hepatitis A IgM Ab Non Reactive Hep Bs Antigen Non Reactive Hep B Core IgM Ab Non Reactive Hepatitis C Antibody Reactive A HIV 1&2 Antibody Rapid Non-Reactive Impressions Impression: Hemorrhagic gastritis Anemia blood loss Continue current management ABG Interpretation ABG results: 08/22/25 23:10 VBG pH 7.44 VBG pCO2 37 VBG pO2 43 VBG Base Excess 1 Assessment & Plan A&P Narrative # Occult GI bleeding # Acute posthemorrhagic anemia requiring blood transfusion Plan Consent obtained for fiberoptic esophagogastroduodenoscopy possible therapeutic intervention biopsy under intravenous moderate sedation We will proceed with the procedure Other medical problems include # Left leg wound # Diabetes mellitus type 1 # CVA with residual left motor weakness # DVT lower extremity # COPD on home oxygen 2 L nasal cannula Thank you very much for the opportunity to participate in the care of this patient Time Spent With Patient Time: Total time spent is greater than 50% in coordination of care (as documented) at patient's floor/unit and/or counseling patient:
[2025-08-24] MEDS: SILVER SULFADIAZINE CR 1% 25 GM TUBE TOP (21:43)
[2025-08-25] VITALS: BP 149/80; PULSE 74; PULSE 76; RESP 17; TEMP 37.2; O2SAT 97
[2025-08-25 04:00] VITALS: BP 150/77; PULSE 78; PULSE 80; RESP 17; TEMP 36.9; O2SAT 97
[2025-08-25] MEDS: HYDROcodone/APAP 5/325 TABLET 1 TAB PO (05:08)
[2025-08-25 05:40] LABS: Basophils # (Auto) 0.1 Thou/mm3 (0.0-0.2); Basophils % (Auto) 1 % (0-2.5); Eosinophils # (Auto) 0.4 Thou/mm3 (0.0-0.5); Eosinophils % (Auto) 4 % (0-10); Hematocrit 31.1 % (41.0-53.0); Hemoglobin 9.5 g/dL (13.5-16.0); Immature Granulocytes Auto 0.02 Thou/mm3 (0.00-0.00); Lymphocytes # (Auto) 1.4 Thou/mm3 (1.0-4.8); Lymphocytes % (Auto) 17 % (10-50); Mean Corpuscular HGB Conc 30.5 g/dl (31.0-37.0); Mean Corpuscular Hemoglobin 25.1 pg (25.0-35.0); Mean Corpuscular Volume 82 fL (80-100); Monocytes # (Auto) 0.7 Thou/mm3 (0.0-0.8); Monocytes % (Auto) 9 % (0-12); Neutrophils # (Auto) 5.7 Thou/mm3 (1.8-7.7); Neutrophils % (Auto) 69 % (37-80); Nucleated Red Blood Cell # 0.00 Thou/mm3 (0.00-0.00); Nucleated Red Blood Cell % 0 /100 WBC (0); Platelet Count 212 Thou/mm3 (140-440); RDW Standard Deviation 41.9 fL (35.1-43.9); Red Blood Count 3.79 Miln/mm3 (4.50-5.90); White Blood Count 8.3 Thou/mm3 (3.8-10.6)
[2025-08-25 06:00] VITALS: BMI 29.2
[2025-08-25 06:01] LABS: Albumin, Serum 3.3 gm/dL (3.5-5.0); Anion Gap 11 (7-16); BUN/Creatinine Ratio 14 Ratio (12-20); Blood Urea Nitrogen 26 mg/dL (9-23); Calcium 7.9 mg/dL (8.3-10.6); Calcium (Corrected) 8.5 mg/dL (8.5-10.1); Carbon Dioxide 24.4 mMol/L (20.0-31.0); Chloride 108 mMol/L (98-107); Creatinine (Component) 1.9 mg/dL (0.6-1.3); Estimated Creatinine Clearance 46.9 mL/min (>60); Glucose 118 mg/dL (74-106); Osmolality,Calculated 290 (275-295); Phosphorous 3.8 mg/dL (2.4-5.1); Potassium 4.5 mMol/L (3.4-5.1); Sodium 143 mMol/L (136-145); eGFR 42 See Note
[2025-08-25] MEDS: GABAPENTIN 100 MG CAPSULE 300 MG PO ×2 (06:02→14:32)
[2025-08-25 08:00] VITALS: BP 140/84; PULSE 90; RESP 18; TEMP 37.3; O2SAT 93
[2025-08-25] MEDS: SENNA/DOCUSATE SOD 1 TAB TABLET PO (08:10)
[2025-08-25 08:11] VITALS: BP 140/84; PULSE 90
[2025-08-25] MEDS: TAMSULOSIN HCL 0.4 MG CAPSULE PO (08:11)
[2025-08-25] MEDS: ONDANSETRON INJ 2 MG/ML INJ 2 ML 4 MG IVP (08:11)
[2025-08-25] MEDS: cefTRIAXone/D5w 1gm IV premix 1 GM/50 ML BAG IV (08:12)
[2025-08-25] MEDS: DOXYCYCLINE INJ 100 MG in SODIUM CHLORIDE 0.9% (POP) 100 ML IV (08:12)
[2025-08-25] MEDS: SUCRALFATE SUSP 1 GM/10 ML UDC PO (08:13)
--- NOTE | 2025-08-25 09:18 | PC.SS ---
Follow up note: Pt is possible d/c if hemoglobin is stable. Pt will return home upon dc.
[2025-08-25 12:00] VITALS: BP 151/80; PULSE 90; RESP 18; TEMP 37.2; O2SAT 94
[2025-08-25] MEDS: METOCLOPRAMIDE INJ 5 MG/ML VIAL 2 ML 10 MG IVP (12:35)
--- NOTE | 2025-08-25 12:42 | PD.IMPROG ---
Documentation for date of: 08/25/25 Subjective Subjective Interval history: Patient evaluated Exam Vital Signs Temp Pulse Resp BP Pulse Ox O2 Del Method O2 Flow Rate 99.0 F 90 18 151/80 H 94 L Room Air 2 08/25/25 12:00 08/25/25 12:00 08/25/25 12:00 08/25/25 12:00 08/25/25 12:00 08/25/25 12:00 08/24/25 22:45 Objective Labs 08/25/25 04:25 08/25/25 04:25 Labs: Laboratory Results - last 24 hr 08/25/25 04:25 WBC 8.3 RBC 3.79 L Hgb 9.5 L Hct 31.1 L MCV 82 MCH 25.1 MCHC 30.5 L RDW Std Deviation 41.9 Plt Count 212 Neut % (Auto) 69 Lymph % (Auto) 17 [place] % (Auto) 9 Eos % (Auto) 4 Baso % (Auto) 1 Neut # (Auto) 5.7 Lymph # (Auto) 1.4 [place] # (Auto) 0.7 Eos # (Auto) 0.4 Baso # (Auto) 0.1 Immature Gran # (Auto) 0.02 H Absolute Nucleated RBC 0.00 Immature Gran % 0 Nucleated RBC % 0 Sodium 143 Potassium 4.5 Chloride 108 H Carbon Dioxide 24.4 Anion Gap 11 BUN 26 H Creatinine 1.9 H Estim Creat Clear Calc 46.9 L eGFR 42 L BUN/Creatinine Ratio 14 Glucose 118 H D Calculated Osmolality 290 Calcium 7.9 L Corrected Calcium 8.5 Phosphorus 3.8 Albumin 3.3 L Impressions Impression: Hemorrhagic gastritis Continue to monitor CBC ABG Interpretation ABG results: 08/22/25 23:10 VBG pH 7.44 VBG pCO2 37 VBG pO2 43 VBG Base Excess 1 Assessment & Plan A&P Narrative # Occult GI bleeding # Acute posthemorrhagic anemia requiring blood transfusion Plan Consent obtained for fiberoptic esophagogastroduodenoscopy possible therapeutic intervention biopsy under intravenous moderate sedation We will proceed with the procedure Other medical problems include # Left leg wound # Diabetes mellitus type 1 # CVA with residual left motor weakness # DVT lower extremity # COPD on home oxygen 2 L nasal cannula Thank you very much for the opportunity to participate in the care of this patient Time Spent With Patient Time: Total time spent is greater than 50% in coordination of care (as documented) at patient's floor/unit and/or counseling patient:
[2025-08-25] MEDS: SODIUM PHOSPHATE RC (14:37)
--- NOTE | 2025-08-25 15:10 | PC.SS ---
Pt is waiting for bowel movement. SS spoke to who expressed her concerns and is requesting for pt to have a bowel movement before being d/c home.
[2025-08-25 16:00] VITALS: BP 148/84; PULSE 90; PULSE 92; RESP 19; TEMP 37; O2SAT 94
--- NOTE | 2025-08-25 16:12 | PC.SS ---
Addendum entered by Charlene Dia 08/25/25 16:23: SS has received call from Mimi from [facility] who states she has been contacted by [employer] and transportation is set for 7pm. Original Note: SS has setup gurney transportation with [phone] for 7pm to home .? Ref# [id number]..? SS has requested [facility].? Per [facility] traveling sales representative, [facility] is not a guaranteed transport company but will contact the the back office to try to accommodate .? Estimated time is 3-4 hours.? SS has sent patient?s facesheet and ambulance form to [facility] using [employer].? SS has spoken to Mimi at [facility] who has placed pt on will call list until she has been contacted by [facility]. is aware. Bedside nurse, Jesi is aware. [facility] is aware.
--- NOTE | 2025-08-25 16:32 | ESDS_ITS ---
Planned Discharge Date 08/25/25 DS: Providers Provider Date of admission: 08/23/25 03:26 Primary care physician: Taiwo Olguin MD Admitting Provider: Michel Castillo DO Attending Provider on Admission: Jesus Felton MD Consults: 08/23/25 00:29 Consult to Gastroenterology Stat Comment: GI bleed Consulting Provider: Lorenzo Muhammad 08/23/25 03:52 PT [Referral Physical Therapy] Routine Comment: Physician Instructions: Referral OP Wound Healing Dept Routine Comment: Referral Wound Care Routine Comment: 08/23/25 10:04 [facility] Referral - Transportation Routine Comment: Positive screening for transportation needs. 08/23/25 10:44 Referral OP Wound Healing Dept Routine Comment: LLE & mid back thermal gomez from heating blanket 08/23/25 10:45 Referral Registered Dietitian Routine Comment: Wounds Attending Provider on DC: Jesus Felton MD Discharging Provider: Jesus Felton MD DS: Diagnosis Problem List Completed Was Problem List Reviewed/Reconciled?: Yes Hospital Course Hospital Course Hospital course: Hospital Course: Patient is a 49-year-old male with history of CVA, CKD, T2DM, HTN, constipation, COPD (on 2 L home oxygen) and DVT who presented to [facility] ED on 08/22 for a left leg wound. Patient was admitted for management of GI bleed and LLE cellulitis on 08/23. On 08/23, endoscopy showed esophagitis, erythematous mucosa in the stomach. On 08/24, octreotide discontinued, and treatment for cellulitis continued. On 08/25, patient was considered stable for discharge. Discharge Instructions: Please follow-up with your PCP within 1 week of discharge We have discontinued your Xarelto 10 mg daily, as your previous DVT was likely provoked, because of being bedridden. Please follow-up with your PCP, to get proper DVT prophylaxis as you are bedbound. You have been started on: Pantoprazole 40mg twice daily for 1 month, please take this medicine 1 hour before food. Sucralfate 10ml four times daily, please take this 15 min before food. -Recommended to continue all other medications as prescribed before - Recommended to return back to emergency department if your symptoms persist or worsens. * Follow up at [facility] for wounds to left outer leg and upper back, [address] [facility]. Call [phone] for appointment * Wound care to left lower leg wounds x 5 and mid upper back: Wash hands with soap and water. Remove old dressings and cleanse well with normal saline than pat dry. Wash hands again. Apply thin layer of silvadene cream and cover with foam dressing twice a day and as needed for falling off. * Problem List: #GI bleed, upper GI bleed from gastritis #Melena #Left lower extremity cellulitis #UTI, asymptomatic #Well-controlled insulin-dependent type 2 diabetes mellitus #History of CKD stage IIIa #History of COPD, on 2 L home oxygen #Liver cirrhosis #Cholelithiasis #History of hypertension #History of muscle cramping #History of constipation #Rectal fecal impaction #Stercoral proctitis This case was discussed with my attending physician, Dr. Felton, and senior resident, Dr. Murguia. Christiano Saldana, PGY1 Senior Resident Attestation: I discussed with and supervised the internal communications writer physician involved in the care of this patient. I personally saw and examined the patient and discussed the assessment and plan with the entire medicine team, including my attending. I agree with the discharge plan as documented above. Blake Murguia MD PGY3 Internal Medicine Status at Discharge Overall status at discharge: patient is progressing back to baseline Time Spent with Patient Time attestation: Total time spent providing and/or coordinating discharge services: 35 minutes Time spent: Greater than 30 minutes Exam Vital Signs Temp Pulse Resp BP Pulse Ox O2 Del Method O2 Flow Rate 99.0 F 90 18 151/80 H 94 L Room Air 2 08/25/25 12:00 08/25/25 16:00 08/25/25 12:00 08/25/25 12:00 08/25/25 12:00 08/25/25 12:00 08/24/25 22:45 Narrative Exam General: Alert, no acute distress. Skin: Warm, dry, intact. Head: Normocephalic, atraumatic. Eye: Normal conjunctiva, PERRL. Throat: Oral mucosa dry. No obvious lesions in oropharynx. Cardiovascular: Regular rate and rhythm, no murmur, +S1/S2. Respiratory: Lungs are clear to auscultation, respirations unlabored, no crackles, no wheezing. Gastrointestinal: Soft, diffusely tender to touch, non-distended. No guarding or rebound tenderness. Extremities: LLE enlarged and tender to touch compared to right, 1+ pitting edema, no cyanosis, no clubbing. Estimated 2 cm x 4 cm oval wound on left martinez laterally that contains red tissue, no drainage, and is tender to touch. Neuro: No focal deficits observed. Conversant, moving all extremities. No overt cerebellar signs/incoordination. Psychiatric: Cooperative, appropriate affect. Discharge Plan Plan Patient Disposition: HOME (Self Care) Patient condition on transfer: Stable and Benefits outweigh risks Care Plan Goals: Please follow-up with your PCP within 1 week of discharge We have discontinued your Xarelto 10 mg daily, as your previous DVT was likely provoked, because of being bedridden. Please follow-up with your PCP, to get proper DVT prophylaxis as you are bedbound. You have been started on: Pantoprazole 40mg twice daily for 1 month, please take this medicine 1 hour before food. Sucralfate 10ml four times daily, please take this 15 min before food. -Recommended to continue all other medications as prescribed before - Recommended to return back to emergency department if your symptoms persist or worsens. * Follow up at [facility] for wounds to left outer leg and upper back, [address] [place] [address]. Call [phone] for appointment * Wound care to left lower leg wounds x 5 and mid upper back: Wash hands with soap and water. Remove old dressings and cleanse well with normal saline than pat dry. Wash hands again. Apply thin layer of silvadene cream and cover with foam dressing twice a day and as needed for falling off. * Prescriptions/Referrals Prescriptions/Med Rec: New pantoprazole 40 mg tablet,delayed release (DR/EC) 40 mg PO BID Qty: 60 0RF Rx Instructions: Please take this medicine 1 hour before food. sucralfate 100 mg/mL suspension 10 ml PO QID Qty: 1000 0RF Rx Instructions: swish in mouth and swallow; please take this medicine 15 min before food. 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 albuterol sulfate 90 mcg/actuation HFA aerosol inhaler 1 puff INHALATION Q4HR PRN (Reason: Shortness Of Breath Or Wheezing) Qty: 0 0RF tamsulosin 0.4 mg Capsule 0.4 mg PO QDAY Qty: 30 0RF Rx Instructions: for bladder spasms methocarbamol 500 mg tablet 500 mg PO TID Patient Comments: TAKE 1 TABLET BY MOUTH 3 TIMES A DAY Linzess 145 mcg capsule 145 mcg PO QDAY Patient Comments: TAKE 1 CAPSULE BY MOUTH EVERY DAY AT LEAST 30 MINS BEFORE THE FIRST MEAL OF THE DAY ON EMPTY STOMACH insulin lispro [Humalog KwikPen Insulin] 100 unit/mL insulin pen 1 sliding scale dose SUBCUT .[facility] Patient Comments: before meals docusate sodium 250 mg Capsule 250 mg PO BID lactulose 10 gram/15 mL Solution 15 ml PO BID PRN (Reason: Constipation) Fleet Enema 19-7 gram/118 mL Enema 118 ml MS Q72H PRN (Reason: Constipation) Rx Instructions: To be administered the following shift if Dulcolax suppository is ineffective, notify md if no result tramadol 100 mg Tablet 100 mg PO Q8HR PRN (Reason: Pain) Rx Instructions: PRN pain moderate(4-6); pain severe (6-9) Discontinued Xarelto 20 mg Tablet 20 mg PO QDAY Rx Instructions: for DVT for 70 days. Start date 03/07/24, End date 05/16/24. Referrals: Taiwo Olguin MD [Primary Care Provider, Family Practice] Patient/Caregiver Discharge Instructions Education Materials: Nutrition for Wound Healing, Changing Dressing Dc, Wound Care Dc Print Language: Romanian Stand Alone Forms: Tessa Award Info., Patient Portal Info Letter Discharge Order Discharge Orders: Discharge (Routine); Ordered 08/25/25 Ordered By: Blake Murguia Quality Discharge Quality Measures none MD Attestestation MD Attestation I have seen and examined the patient. I was physically present for the arredondo portions of the services provided including history, physical exam, diagnosis, treatment plans and orders. I agree with assessment and plan of care as documented by residents. Even though this this note was carefully revised there may still be minor errors in wood getter due to voice recognition software. Jesus Felton MD
--- NOTE | 2025-08-25 16:33 | PC.NURSE ---
called MD to resend home meds to pharmacy as [facility] was updated. Spoke with Dr. Altamirano. also, called caregiver Marvin and went over discharge instructions. Pt will discharge at 1900
[2025-08-30 22:01] LABS: HCV RNA, PCR <15 NOT DETECTED IU/mL
[2025-09-04 07:16] LABS: HCV RNA, PCR Log IU <1.18 NOT DETECTED Log IU/mL
== END 2025-08-25 19:06 | disposition home or self-care (01) | DRG 241 ==
LOC: SERX 08-23 02:58 → SERHOLD 08-23 04:03 → S3SX 08-23 06:14
PROVIDERS: Specialist; Admitting Provider Student in an Organized Health Care Education/Training Program; Emergency Provider Emergency Medicine; PCP Family Medicine; Visit Provider Student in an Organized Health Care Education/Training Program
PROC: (CPT 43239; principal; 2025-08-23 16:30)
DX: K29.71 Gastritis, unspecified, with bleeding (principal); I69.354 Hemiplegia and hemiparesis following cerebral infarction affecting left non-dominant side; Z74.01 Bed confinement status; I12.9 Hypertensive chronic kidney disease with stage 1 through stage 4 chronic kidney disease, or unspecified chronic kidney disease; Z99.81 Dependence on supplemental oxygen; Z86.718 Personal history of other venous thrombosis and embolism; D62 Acute posthemorrhagic anemia; K20.90 Esophagitis, unspecified without bleeding; K31.89 Other diseases of stomach and duodenum; N39.0 Urinary tract infection, site not specified; L03.116 Cellulitis of left lower limb; Z79.4 Long term (current) use of insulin; E11.22 Type 2 diabetes mellitus with diabetic chronic kidney disease; K56.41 Fecal impaction; N18.31 Chronic kidney disease, stage 3a; J44.89 Other specified chronic obstructive pulmonary disease; K74.60 Unspecified cirrhosis of liver; K80.20 Calculus of gallbladder without cholecystitis without obstruction; Z79.01 Long term (current) use of anticoagulants
CPT/HCPCS: 36415; 71045; 73701; 74177; 76705; 80053; 80069; 80074; 81001; 82010; 82150; 82248; 82270; 82803; 83036; 83605; 83690; 83735; 83880; 84145; 84443; 84550; 85025; 85652; 86140; 86703; 86850; 86900; 86901; 86923; 87040; 87081; 87086; 87186; 87502; 87522; 87635; 93926; 93970; 96361; 96374; 96375; 99284; A4649; J0696; J1200; J2250; J2270; J2354; J2405; J2470; J2765; J3010; J3490; J7030; J7050; P9016; Q9967; A9270